=== PATIENT | male | born 1955 | race Caucasian/White ===

== ENCOUNTER 2018-04-15 13:24 | Emergency (ER) | payer MEDICARE, MEDICAID, SELFPAY ==
[2018-04-15 13:37] VITALS: BP 133/79; PULSE 80; RESP 16; TEMP 36.9; O2SAT 97
--- NOTE | 2018-04-15 14:29 | ED.GENADUL_ITS ---
Disposition Clinical Impression: Peripheral edema Disposition: HOME Condition: Stable Instructions: Leg Edema (ED) Additional Instructions: Please return immediately to the emergency department if you develop any new or worsening symptoms or if you become otherwise concerned. It is extremely important to make an appointment to be seen by your primary care doctor within the next 1-2 weeks in follow-up. Referrals: Carlos Nguyen DO [Primary Care Provider] - Medical Decision Making - Lab Data Laboratory Tests 04/15/18 14:47 Sodium 145 Potassium 3.6 Chloride 109 H Carbon Dioxide 28.4 Anion Gap 7.6 BUN 10 Creatinine 1.23 Estimated GFR/1.73 m2 59.43 Glucose 102 H Calcium 8.9 NT-Pro-B Natriuret Pep 154 TSH 2.70 Results reviewed for labs ordered during visit: Yes - Radiology Data Bilateral lower extremity ultrasounds per radiology: no DVT - Medical Decision Making Alex Roberson is a 63-year-old man with history of hyperlipidemia presenting to the emergency department with 3-4 days of bilateral leg swelling without trauma or other known inciting event; no history of swelling in the past. On exam patient is very well-appearing. He has a normal cardiopulmonary exam. He has 2 + pitting edema of the legs bilaterally with mild posterior calf tenderness bilaterally. Bilateral lower extremities are neurovascularly intact. Concern for possible metabolic/leg derangement vs DVTs, though suspect likely venous stasis/dependent edema given lack of other symptoms. Doubt CHF. Exam/history not consistent with sepsis, PE, cellulitis/myositis or other infection. Plan for screening labs, b/l LE US. Labs nondiagnostic, US neg. Lengthy discussion with Pt re: RTED preautions importance of outpatient follow-up with PCP. Patient is amenable to the plan History of Present Illness - General Chief complaint: Orthopedic Stated complaint: CALEX Time Seen by Provider: 04/15/18 14:22 Source: patient, RN notes reviewed Mode of arrival: EMS Limitations: no limitations - History of Present Illness Initial comments: Alex Roberson is a 63 y/o man with h/o HLD presenting to the emergency department with bilateral lower extremity swelling. Patient reports that 3 or 4 days ago he noticed that both legs seem swollen. He reports that swelling has gradually worsened. He has no pain. He does not feel short of breath. He has never had swelling of his legs in the past. He has had not traveled recently. He reports that he has been somewhat less active than usual recently, but has been walking without issue. Has been eating and drinking normally. Feels otherwise in his usual state of health. Sleeps on one pillow at night without issue. - Related Data FLUoxetine [PROzac] 20 mg PO DAILY #30 cap 06/19/17 Ranitidine HCl 150 mg PO BID #60 tab-cap 08/20/17 Etodolac 400 mg PO BID #60 tab-cap 02/11/18 Rosuvastatin [Crestor] 20 mg PO DAILY #90 tab 02/11/18 Amitriptyline [Elavil] 25 mg PO HS #30 tab-cap 03/29/18 Gabapentin 600 mg PO TID 90 Days #270 tab-cap 03/29/18 Allergies Allergy/AdvReac Type Severity Reaction Status Date / Time tetanus and diphtheria AdvReac Intermediate severe Unverified 04/15/18 13:54 toxoids muscle pain x 2 weeks after injection on 09/2012 Review of Systems Constitutional: denies: fever Eyes: denies: eye pain ENT: denies: ear pain, throat pain, dental pain Respiratory: denies: cough, shortness of breath Cardiovascular: edema. denies: chest pain, orthopnea, paroxysmal nocturnal dyspnea Endocrine: denies: increased hunger, increased thirst Gastrointestinal: denies: abdominal pain, vomiting, diarrhea Musculoskeletal: denies: back pain, arthralgia, myalgia Skin: denies: rash Neurological: paresthesias (Chronic and unchanged). denies: headache, weakness , numbness Past Medical History - Past Medical History Medical history: hyperlipidemia - Social History Smoking status: current everyday smoker Alcohol use: none Drug use: none General Exam - General Limitations: no limitations General appearance: alert, in no apparent distress, other (Pleasant, conversing normally, well-appearing and nontoxic) - Head Head exam: Present: atraumatic, normocephalic, normal inspection - Eye Eye exam: Absent: scleral icterus, conjunctival injection Pupils: Absent: irregular, unequal, miosis, mydriatic - ENT ENT exam: Present: mucous membranes moist - Neck Neck exam: Present: normal inspection - Respiratory Respiratory exam: Present: normal lung sounds bilaterally. Absent: respiratory distress - Cardiovascular Cardiovascular Exam: Present: regular rate, normal rhythm, normal heart sounds - Extremities Exam Extremities exam: Present: full ROM, pedal edema (2+ pitting edema bilaterally) , calf tenderness (Mild posterior calf tenderness bilaterally), other (No overlying skin changes). Absent: joint swelling - Neurological Exam Neurological exam: Present: alert, other (Grossly nonfocal, normal tone). Absent: altered - Psychiatric Psychiatric exam: Present: normal affect, normal mood - Skin Skin exam: Present: warm, dry, intact, normal color. Absent: rash Course Vital Signs - 24 hr 04/15/18 13:37 Temperature 36.9 C Pulse 80 Respiratory 16 Rate Blood Pressure 133/79 Pulse Oximetry 97
[2018-04-15 15:16] LABS: Anion Gap 7.6 mmol/L (3-11); BUN 10 mg/dL (7-18); CO2 28.4 mmol/L (21.0-32.0); CREATININE 1.23 mg/dL (0.70-1.30); Calcium 8.9 mg/dL (8.5-10.1); Chloride 109 mmol/L (98-107); Estimated GFR 59.43 (mL/min/1.73m2); Glucose 102 mg/dL (70-100); NT-proBNP 154 pg/mL; Potassium 3.6 mmol/L (3.5-5.1); Sodium 145 mmol/L (136-145)
--- NOTE | 2018-04-15 15:17 | DI.REPORT_ITS ---
SYMPTOMS/DIAGNOSIS: LOWER LEG SWELLING PAST 3-4 DAYS BILATERAL LOWER EXTREMITY ULTRASOUND: The femoral and popliteal veins and visualized calf veins, as well as saphenous vein, are freely compressible. No thrombus is visible. There is no evidence of Silver's cyst. IMPRESSION: Negative bilateral lower extremity ultrasound. No evidence of DVT.
--- NOTE | 2018-04-15 16:24 | PDOC.ERCMPRO ---
Date of Service: 04/15/18 Time of Service: 16:24 Care Management Progress Note CM contacted by ED to coordinate transportation home at time of ED discharge. CM contacted [facility] and arranged transportation. Alex is known to [facility] and will be transported home by service. ED was contacted and updated with estimated arrival time for patient.
[2018-04-15 16:36] VITALS: BP 146/87; PULSE 69; RESP 21; TEMP 37.1; O2SAT 95
== END 2018-04-15 16:40 | disposition home or self-care (01) ==
PROVIDERS: Emergency Provider Student in an Organized Health Care Education/Training Program; PCP Family Medicine
DX: R60.0 Localized edema (principal)
CPT/HCPCS: 93970; 99284 ×2; 36415; 80048; 83880; 84443

== ENCOUNTER 2018-09-29 10:57 | Inpatient (IN) | payer MEDICARE, MEDICAID, SELFPAY ==
[2018-09-29] VITALS (77 sets, daily range): BP systolic 84–128; BP diastolic 45–91; PULSE 75–157; RESP 10–26; TEMP 37.5–38.6; O2SAT 81–96
--- NOTE | 2018-09-29 10:52 | W.ED.GENAD ---
Discharge Plan Disposition Patient Disposition: [facility] INPATIENT Condition: Stable Discharge Details Chief Complaint: GenMedical Clinical Impression: Influenza, Acute dehydration, Elevated troponin Reason For Visit: CITL[facility]I Primary Care Provider: Carlos Nguyen ED Provider: Char Collins Home Meds and New Rx's Prescriptions: Continued amitriptyline 25 mg tablet 25 mg PO HS Qty: 90 RF: 3 etodolac 400 mg tablet 400 mg PO BID Qty: 180 RF: 3 fluoxetine 20 mg capsule 20 mg PO DAILY Qty: 90 RF: 3 ranitidine HCl 150 mg capsule 150 mg PO BID Qty: 180 RF: 3 rosuvastatin [Crestor] 20 MG tablet 20 mg PO DAILY Qty: 90 RF: 4 gabapentin 600 MG tablet 600 mg PO TID 90 Days Qty: 270 RF: 3 Discharge Instructions Instructions: Contusion in Adults (ED) Additional Instructions: Encourage hydration. Encourage gentle stretching and frequent ambulation. Tylenol and/or ibuprofen as needed for discomfort. Flexeril as needed for spasm. Lidoderm patches as prescribed. Please follow-up with primary care if pain is not improving If you develop pain radiating into your extremities, altered sensation, change in bowel or bladder habits, increased pain, abdominal pain, fever/chills or other new/worsening symptoms please seek care urgently once again Forms: Work Release Referrals: Carlos Nguyen DO [Primary Care Provider] - Medical Decision Making Patient is a 63 presenting today with c/c of weakness. His symptoms are rather vague. He denies CP, SOB, GI upset. Has body aches, endorses feeling feverish. cough began this morning. On exam, he appears nontoxic. Appears dehydrated. He is febrile at 38.0, tachycardic at 113. Denies cardiac history. Cardiopulmonary exam without abnormality. Has been seen here for BLE edema previously, has not noted this recently. His diffuse symptoms are most consistent with influenza. However, we will also evaluate her for possible ACS, pneumonia, electrolyte abnormality, thyroid disorder, tic borne illness versus other etiology. Low suspicion for ACS, patient does not have any chest pain or shortness of breath. No history of cardiac issues the patient is aware of. EKG reviewed by Dr. Farley. Patient does have PACs noted but otherwise no acute abnormalities, no ischemic findings. This was compared to previous with no acute changes. Influenza negative. However, patients history sounds very consistent with influenza, will be treatment with Tamiflu. Patient is elevated troponin 0 0.12. Patient given ASA. Question the patient again, no history of cardiac illness, ACS. No recent chest pain. No shortness of breath. Patient is a smoker. Creatinine 1.65. Discussed case with Dr. Farley. Consulted with Dr. Mccullough. is not reviewed EKG, troponin and patient's presenting symptoms and history. He is questioning if this may be secondary to demand. Did advise aspirin, this is been given to the patient. He also advised heparinizing the patient per ACS protocol. He advised planning for stress test tomorrow nor once patient is able to tolerate this from his acute illness. Did recommend admission and trending the troponins. Did not feel that movement to a higher level of care is appropriate or necessary at this time. Have been started by nursing staff. Will consult with hospitalist No beds per hospitalist. Consulted with [facility], they do not have bed availability at this time. Consulted with [facility], spoke with hospitalist who advised 4 hour troponin, if this is not significantly bumped up they will accept in transfer. Repeat troponin downtrending at 0.1. Repeat EKG reviewed by Dr. Farley [facility] no acute changes noted. consulted with Dr. Alaniz as we now have beds availabe, he agrees to admission, will place orders. HPI General Mode of arrival: EMS. Date/Time Provider Initiated Documentation: 09/29/18 11:05. Limitations to Documentation: no limitations. Information obtained by: EMS. HPI Narrative: Patient is 63-year-old male presents today with chief complaint of weakness. Brought in via EMS. He reports he woke up this morning feeling weak, feverish, with cough. Denies any focal weakness. States he did sleep well last night and had a normal day yesterday. No known sick contacts. Denies any GI upset. No sore throat or otalgia. Patient does have a notable stutter but he states that this is typical and unchanged. He denies any headaches visual changes, he does report that he has history of migraines. History of hyperlipidemia, anxiety, GERD and depression. No recent travel. No recent antibiotic usage.States that he fell a few days ago when he slipped on the sidewalk. Is currently endorsing bilateral hip pain. Related Data Home Medications Medication Instructions Recorded Confirmed rosuvastatin [Crestor] 20 mg PO DAILY #90 tab 02/11/18 09/29/18 gabapentin 600 mg PO TID 90 Days #270 tab-cap 03/29/18 09/29/18 amitriptyline 25 mg tablet 25 mg PO HS #90 tab-cap 08/20/18 09/29/18 etodolac 400 mg tablet 400 mg PO BID #180 tab-cap 08/20/18 09/29/18 fluoxetine 20 mg capsule 20 mg PO DAILY #90 cap 08/20/18 09/29/18 ranitidine 150 mg capsule 150 mg PO BID #180 tab-cap 08/20/18 09/29/18 Previous Rx's Medication Instructions Recorded rosuvastatin [Crestor] 20 mg PO DAILY #90 tab 02/11/18 gabapentin 600 mg PO TID 90 Days #270 tab-cap 03/29/18 amitriptyline 25 mg tablet 25 mg PO HS #90 tab-cap 08/20/18 etodolac 400 mg tablet 400 mg PO BID #180 tab-cap 08/20/18 fluoxetine 20 mg capsule 20 mg PO DAILY #90 cap 08/20/18 ranitidine 150 mg capsule 150 mg PO BID #180 tab-cap 08/20/18 Allergies Allergy/AdvReac Type Severity Reaction Status Date / Time tetanus and diphtheria AdvReac Intermediate severe Unverified 08/20/18 10:18 toxoids muscle pain x 2 weeks after injection on 09/2012 Review of Systems Constitutional Reports as per HPI, Reports chills, Reports fatigue, Reports fever(s), Denies headache(s) and Denies poor appetite Eyes Reports as per HPI, Denies change in vision, Denies eye discharge and Denies irritation ENT Reports as per HPI and Denies headache(s) Cardiovascular Reports as per HPI, Denies chest pain, Denies lightheadedness, Denies dyspnea and Denies dyspnea on exertion Respiratory Reports as per HPI, Reports cough (nonproductive, began this morning), Denies hemoptysis, Denies pain on inspiration, Denies pain with cough, Denies dyspnea, Denies dyspnea on exertion, Denies stridor and Denies wheezing Gastrointestinal Reports as per HPI, Denies abdominal pain, Denies change in bowel habits, Denies nausea and Denies vomiting Genitourinary Reports system reviewed and no additional complaints, except as docu (denies change in urinary habits) Integumentary/Breasts Reports as per HPI and Denies rash Neurologic Denies headache(s) Endocrine Reports fatigue Allergic/Immunologic Denies wheezing PFSH Family History Mother Diabetes Essential hypertension Stroke Father No problems noted. Sister No problems noted. Sister No problems noted. Brother No problems noted. Brother No problems noted. Brother No problems noted. Brother Essential hypertension Brother No problems noted. Social History adopted: No foster care: No housing: apartment lives independently: Yes number of children: 1 current occupational status: disabled Smoking/Tobacco Use Status: Current every day alcohol intake: former substance use type: does not use Exam Const General: cooperative, healthy appearing, comfortable, no acute distress, well developed and well groomed Nutritional Appearance: well nourished and overweight Orientation: alert and awake HENMT Head: normal to inspection, normocephalic and atraumatic Ears: hearing grossly normal bilaterally, external ears normal and TM's normal bilaterally General nose exam: external nose normal and nares normal Face and sinus: normal facial exam, sinuses nontender and face symmetric Mouth: oral mucosae normal, lip normal, tongue normal, oropharynx normal and moist mucous membranes Teeth and gingiva: dentition normal Throat: posterior oropharynx normal, tonsils normal and uvula midline Eyes General: appearance normal, both eyes and all related structures Neck Neck: normal visual inspection, full ROM, no lymphadenopathy and no meningeal signs Resp Effort & Inspection: normal respiratory effort, able to speak in complete sentences and no respiratory distress Auscultation: clear to auscultation bilaterally, no rales, no rhonchi and no wheezes Cardio Rate: regular rate Rhythm: regular rhythm Heart Sounds: S1 normal and S2 normal GI Inspection: normal to inspection and obesity Palpation: soft, no hepatosplenomegaly, not firm, no guarding, not rigid and nontender Percussion: normal to percussion Auscultation: normal bowel sounds Skin General skin exam: no rashes or lesions noted Neuro General: alert and awake Cognition: normal cognition Speech: speech normal Gait: normal gait Extrem General: normal to inspection, no pedal edema and no calf tenderness Psych Appearance: grossly normal and well kempt Mental Status: mental status grossly normal Speech and Movement: speech and movement normal
--- NOTE | 2018-09-29 11:05 | DI.RAD_ITS ---
SYMPTOM/DIAGNOSIS: COUGH, FLU AP AND LATERAL CHEST: The heart size is within normal limits. There is a question of mild scarring. No superimposed infiltrate, effusion or pulmonary edema is seen. IMPRESSION: No acute abnormality.
--- NOTE | 2018-09-29 11:09 | ED.GENADUL_ITS ---
Discharge Plan Disposition Patient Disposition: [facility] INPATIENT Condition: Stable Discharge Details Chief Complaint: GenMedical Clinical Impression: Influenza, Acute dehydration, Elevated troponin Reason For Visit: CITLALLI Primary Care Provider: Carlos Nguyen ED Provider: Char Collins Home Meds and New Rx's Prescriptions: Continued amitriptyline 25 mg tablet 25 mg PO HS Qty: 90 RF: 3 etodolac 400 mg tablet 400 mg PO BID Qty: 180 RF: 3 fluoxetine 20 mg capsule 20 mg PO DAILY Qty: 90 RF: 3 ranitidine HCl 150 mg capsule 150 mg PO BID Qty: 180 RF: 3 rosuvastatin [Crestor] 20 MG tablet 20 mg PO DAILY Qty: 90 RF: 4 gabapentin 600 MG tablet 600 mg PO TID 90 Days Qty: 270 RF: 3 Discharge Instructions Instructions: Contusion in Adults (ED) Additional Instructions: Encourage hydration. Encourage gentle stretching and frequent ambulation. Tylenol and/or ibuprofen as needed for discomfort. Flexeril as needed for spasm. Lidoderm patches as prescribed. Please follow-up with primary care if pain is not improving If you develop pain radiating into your extremities, altered sensation, change in bowel or bladder habits, increased pain, abdominal pain, fever/chills or other new/worsening symptoms please seek care urgently once again Forms: Work Release Referrals: Carlos Nguyen DO [Primary Care Provider] - Medical Decision Making Patient is a 63 presenting today with c/c of weakness. His symptoms are rather vague. He denies CP, SOB, GI upset. Has body aches, endorses feeling feverish. cough began this morning. On exam, he appears nontoxic. Appears dehydrated. He is febrile at 38.0, tachycardic at 113. Denies cardiac history. Cardiopulmonary exam without abnormality. Has been seen here for BLE edema previously, has not noted this recently. His diffuse symptoms are most consistent with influenza. However, we will also evaluate her for possible ACS, pneumonia, electrolyte abnormality, thyroid disorder, tic borne illness versus other etiology. Low suspicion for ACS, patient does not have any chest pain or shortness of breath. No history of cardiac issues the patient is aware of. EKG reviewed by Dr. Farley. Patient does have PACs noted but otherwise no acute abnormalities, no ischemic findings. This was compared to previous with no acute changes. Influenza negative. However, patients history sounds very consistent with influenza, will be treatment with Tamiflu. Patient is elevated troponin 0 0.12. Patient given ASA. Question the patient again, no history of cardiac illness, ACS. No recent chest pain. No shortness of breath. Patient is a smoker. Creatinine 1.65. Discussed case with Dr. Farley. Consulted with Dr. Mccullough. is not reviewed EKG, troponin and patient's presenting symptoms and history. He is questioning if this may be secondary to demand. Did advise aspirin, this is been given to the patient. He also advised heparinizing the patient per ACS protocol. He advised planning for stress test tomorrow nor once patient is able to tolerate this from his acute illness. Did recommend admission and trending the troponins. Did not feel that movement to a higher level of care is appropriate or necessary at this time. Have been started by nursing staff. Will consult with hospitalist No beds per hospitalist. Consulted with [facility] [place], they do not have bed availability at this time. Consulted with [facility], spoke with hospitalist who advised 4 hour troponin, if this is not significantly bumped up they will accept in transfer. Repeat troponin downtrending at 0.1. Repeat EKG reviewed by Dr. Farley [facility] no acute changes noted. consulted with Dr. Alaniz as we now have beds availabe, he agrees to admission, will place orders. HPI General Mode of arrival: EMS . Date/Time Provider Initiated Documentation: 09/29/18 11:05 . Limitations to Documentation: no limitations . Information obtained by: EMS . HPI Narrative: Patient is 63-year-old male presents today with chief complaint of weakness. Brought in via EMS. He reports he woke up this morning feeling weak, feverish, with cough. Denies any focal weakness. States he did sleep well last night and had a normal day yesterday. No known sick contacts. Denies any GI upset. No sore throat or otalgia. Patient does have a notable stutter but he states that this is typical and unchanged. He denies any headaches visual changes, he does report that he has history of migraines. History of hyperlipidemia, anxiety, GERD and depression. No recent travel. No recent antibiotic usage.States that he fell a few days ago when he slipped on the sidewalk. Is currently endorsing bilateral hip pain. Related Data Home Medications Medication Instructions Recorded Confirmed rosuvastatin [Crestor] 20 mg PO DAILY #90 tab 02/11/18 09/29/18 gabapentin 600 mg PO TID 90 Days #270 tab-cap 03/29/18 09/29/18 amitriptyline 25 mg tablet 25 mg PO HS #90 tab-cap 08/20/18 09/29/18 etodolac 400 mg tablet 400 mg PO BID #180 tab-cap 08/20/18 09/29/18 fluoxetine 20 mg capsule 20 mg PO DAILY #90 cap 08/20/18 09/29/18 ranitidine 150 mg capsule 150 mg PO BID #180 tab-cap 08/20/18 09/29/18 Previous Rx's Medication Instructions Recorded rosuvastatin [Crestor] 20 mg PO DAILY #90 tab 02/11/18 gabapentin 600 mg PO TID 90 Days #270 tab-cap 03/29/18 amitriptyline 25 mg tablet 25 mg PO HS #90 tab-cap 08/20/18 etodolac 400 mg tablet 400 mg PO BID #180 tab-cap 08/20/18 fluoxetine 20 mg capsule 20 mg PO DAILY #90 cap 08/20/18 ranitidine 150 mg capsule 150 mg PO BID #180 tab-cap 08/20/18 Allergies Allergy/AdvReac Type Severity Reaction Status Date / Time tetanus and diphtheria AdvReac Intermediate severe Unverified 08/20/18 10:18 toxoids muscle pain x 2 weeks after injection on 09/2012 Review of Systems Constitutional Reports as per HPI, Reports chills, Reports fatigue, Reports fever(s), Denies headache(s) and Denies poor appetite Eyes Reports as per HPI, Denies change in vision, Denies eye discharge and Denies irritation ENT Reports as per HPI and Denies headache(s) Cardiovascular Reports as per HPI, Denies chest pain, Denies lightheadedness, Denies dyspnea and Denies dyspnea on exertion Respiratory Reports as per HPI, Reports cough (nonproductive, began this morning), Denies hemoptysis, Denies pain on inspiration, Denies pain with cough, Denies dyspnea, Denies dyspnea on exertion, Denies stridor and Denies wheezing Gastrointestinal Reports as per HPI, Denies abdominal pain, Denies change in bowel habits, Denies nausea and Denies vomiting Genitourinary Reports system reviewed and no additional complaints, except as docu (denies change in urinary habits) Integumentary/Breasts Reports as per HPI and Denies rash Neurologic Denies headache(s) Endocrine Reports fatigue Allergic/Immunologic Denies wheezing PFSH Family History Mother Diabetes Essential hypertension Stroke Father No problems noted. Sister No problems noted. Sister No problems noted. Brother No problems noted. Brother No problems noted. Brother No problems noted. Brother Essential hypertension Brother No problems noted. Social History adopted: No foster care: No housing: apartment lives independently: Yes number of children: 1 current occupational status: disabled Smoking/Tobacco Use Status: Current every day alcohol intake: former substance use type: does not use Exam Const General: cooperative, healthy appearing, comfortable, no acute distress, well developed and well groomed Nutritional Appearance: well nourished and overweight Orientation: alert and awake HENMT Head: normal to inspection, normocephalic and atraumatic Ears: hearing grossly normal bilaterally, external ears normal and TM's normal bilaterally General nose exam: external nose normal and nares normal Face and sinus: normal facial exam, sinuses nontender and face symmetric Mouth: oral mucosae normal, lip normal, tongue normal, oropharynx normal and moist mucous membranes Teeth and gingiva: dentition normal Throat: posterior oropharynx normal, tonsils normal and uvula midline Eyes General: appearance normal, both eyes and all related structures Neck Neck: normal visual inspection, full ROM, no lymphadenopathy and no meningeal signs Resp Effort & Inspection: normal respiratory effort, able to speak in complete sentences and no respiratory distress Auscultation: clear to auscultation bilaterally, no rales, no rhonchi and no wheezes Cardio Rate: regular rate Rhythm: regular rhythm Heart Sounds: S1 normal and S2 normal GI Inspection: normal to inspection and obesity Palpation: soft, no hepatosplenomegaly, not firm, no guarding, not rigid and nontender Percussion: normal to percussion Auscultation: normal bowel sounds Skin General skin exam: no rashes or lesions noted Neuro General: alert and awake Cognition: normal cognition Speech: speech normal Gait: normal gait Extrem General: normal to inspection, no pedal edema and no calf tenderness Psych Appearance: grossly normal and well kempt Mental Status: mental status grossly normal Speech and Movement: speech and movement normal
[2018-09-29] MEDS: Normal Saline 1,000 ML 1000 ML IV (11:25)
[2018-09-29 11:33] LABS: Abs Immature Grans 0.03 k/cumm (0.0-0.09); Absolute Basophil Count 0.02 k/cumm (0.0-0.2); Absolute Eosinophil Count 0.03 k/cumm (0.0-0.7); Absolute Lymphocyte Count 0.42 k/cumm (1.2-3.4); Absolute Monocyte Count 0.49 k/cumm (0.11-0.7); Absolute Neutrophil Count 8.34 k/cumm (1.2-6.7); Basophils % 0.2; Eosinophils % 0.3; HCT 42.1 % (40.0-50.0); HGB 14.4 g/dL (13.5-17.5); Immature Grans % 0.3; Lymphocytes % 4.5; Mean Corp. HGB Concentration 34.2 g/dL (32.0-36.0); Mean Corpuscular Hemoglobin 31.5 pg (27.0-33.0); Mean Corpuscular Volume 92.1 fL (80-95); Mean Platelet Volume 11.3 fL (8.0-11.0); Monocytes % 5.3; Neutrophils % 89.4; Platelet Count 125 x1000/uL (130-400); RBC 4.57 m/cumm (4.50-6.00); RBC Distribution Width 13.7 % (11.8-14.1); White Blood Cell Count 9.33 k/cumm (4.4-10.8)
[2018-09-29] MEDS: Acetaminophen 500 MG TAB 1000 MG PO (11:33)
[2018-09-29 11:46] LABS: INR 1.1 (0.9-1.1); PTT Activated 25.5 sec (21.0-31.4)
[2018-09-29 11:54] LABS: ALT 42 U/L (12-78); AST 25 U/L (15-37); Albumin 3.6 g/dL (3.4-5.0); Alkaline Phosphatase 84 U/L (46-116); Anion Gap 8.1 mmol/L (3-11); BUN 18 mg/dL (7-18); CO2 24.9 mmol/L (21.0-32.0); CREATININE 1.65 mg/dL (0.70-1.30); Calcium 9.4 mg/dL (8.5-10.1); Chloride 104 mmol/L (98-107); Estimated GFR 42.34 (mL/min/1.73m2); Glucose 71 mg/dL (70-100); Magnesium 1.8 mg/dL (1.8-2.4); Sodium 137 mmol/L (136-145); TSH (W/Ref FT4) 1.51 uIU/mL (0.358-3.74); Total Protein 6.7 g/dL (6.4-8.2)
[2018-09-29 11:56] LABS: Troponin I 0.12 ng/mL (0.00-0.06)
[2018-09-29] MEDS: Aspirin 81 MG CHEW 324 MG CH ×2 (12:10→12:12)
[2018-09-29] MEDS: Oseltamivir 75 MG CAP PO ×3 (12:10→19:53)
[2018-09-29] MEDS: Normal Saline 1,000 ML 250 ML IV (12:29)
--- NOTE | 2018-09-29 12:34 | DI.VRAD_ITS ---
EXAM: XR Chest, 2 Views EXAM DATE/TIME: 09/29/2018 11:07 AM CLINICAL HISTORY: 63 years old, male; Signs and symptoms; Cough and fever TECHNIQUE: XR of the chest, 2 views. COMPARISON: CT CHEST - LUNG CANCER SCREENING 08/16/2015 12:57 PM FINDINGS: Lungs: Hyperexpanded lung recinos consistent with COPD Pleural space: Unremarkable. No pleural effusion. No pneumothorax. Heart/Mediastinum: Cardiomegaly Bones/joints: Unremarkable. IMPRESSION: Hyperexpanded lung recinos consistent with COPD Dictated and Authenticated by: Marek Cotter MD. Ordering:MELISSA Pardo MD
[2018-09-29 15:22] LABS: Bilirubin Large (Negative); Blood Negative (Negative); Clarity Clear; Glucose Negative (Negative); Ketones 15 mg/dL (Negative); Leukocyte Esterase Trace (Negative); Nitrite Negative (Negative); Specific Gravity 1.015 (1.005-1.025); Urobilinogen 0.2 EU/dL (Up TO 0.2); pH 5.5 (5-8)
[2018-09-29 15:30] LABS: Bacteria Rare HPF (Negative); C & S Indicated? No/Sq. Contamination; Casts Negative LPF (Negative); Crystals Negative HPF (Negative); Epithelial Cells Many HPF (Negative); Mucus Negative (Negative)
[2018-09-29] MEDS: Metoprolol 12.5 MG TAB PO (17:55)
[2018-09-29] MEDS: SODIUM CHLORIDE 0.45% 1,000 ML 125 ML IV (18:11)
[2018-09-29] MEDS: Acetaminophen 325 MG TAB PO ×2 (18:17→21:48)
[2018-09-29 18:53] LABS: PTT Activated 52.1 sec (21.0-31.4)
--- NOTE | 2018-09-29 19:50 | W.PM.HP.N ---
Date of service: 09/29/18 Time of Service: 19:50 Assessment and Plan (1) Upper respiratory infection: Current visit: Yes Status: Acute Evidence of a febrile URI accompanied by subjective body aches and myalgias. Although the patient's rapid flu is negative, strongly suspect influenza as potential etiology. Check flu by PCR, and continue Oseltamivir that was initiated in the ED. Despite acute kidney injury patient's creatinine clearance is calculated at above 60?will continue at full dosing for Tamiflu. Continue supportive care and IV fluids as well. (2) EFRAÍN (acute kidney injury): Current visit: Yes Status: Acute Potentially prerenal in setting of acute illness and fevers. Continue IV fluids and monitor renal function. (3) Elevated troponin: Current visit: Yes Status: Acute Minimal and equivocal elevation in troponin that quickly down trended. This is in the setting of acute illness and poor clearance due to EFRAÍN. EKG reviewed, and overall appears to be nonischemic although of poor quality. Patient was initiated in a heparin drip in accordance with recommendations from cardiology - this will be continued for now. Initiate daily aspirin and low-dose beta-rain therapy with hold parameters given relative hypotension. Continue high potency statin. Hold off on Plavix load for now, and trend cardiac biomarkers. Will check an echocardiogram in the morning as well. Suspect that this minimal troponin spill is likely due to demand ischemia, but given lengthy history of tobacco use the patient will still benefit from testing in the future. Stress test may need to be performed on an outpatient basis as patient is acutely ill. Continue to monitor on telemetry. (4) Tobacco use disorder, moderate, dependence: Current visit: No Status: Acute Approximate 50+-pack-year history of smoking noted. (5) Hyperlipidemia: Current visit: No Status: Acute Continue rosuvastatin. (6) Generalized anxiety disorder: Current visit: No Status: Acute Continue home regimen?patient is on SSRI therapy. (7) Gastroesophageal reflux disease: Current visit: No Status: Acute Currently on ranitidine. (8) DVT prophylaxis: Current visit: Yes Status: Acute On therapeutic anticoagulation with a heparin drip. History of Present Illness Chief Complaint: Fever, Myalgias Narrative: 63-year-old man with past medical history significant for daily tobacco abuse, presented to [facility] Emergency Department today with complaints of feeling unwell. Mr. Roberson has a past medical history significant for generalized anxiety disorder, depression, and insomnia. He also has noted spinal stenosis in the C-spine, and suffers from GERD. Review of his prior imaging shows evidence of a pulmonary nodule. He is also a daily long-term tobacco user, with an approximate 90-[id number] history of smoking. The patient presented to the emergency department today with complaints of subjective fevers, cough, and body aches. He was noted to be mildly hypotensive, and initially tachycardic. He also had a documented fever with a temperature of 38 ?C. Entirety of the rest of his workup was negative, including a contaminated appearing urinalysis, normal EKG, and a chest x-ray without acute abnormalities. However the patient was noted to have evidence of mild acute kidney injury with a creatinine of 1.6, and a minimal elevation in his troponin that was already downtrending prior to admission. Given the findings patient was admitted for further evaluation and treatment. Review of Systems Review of Systems All systems reviewed & are unremarkable except as noted in HPI and below PFSH Family History Mother Diabetes Essential hypertension Stroke Father No problems noted. Sister No problems noted. Sister No problems noted. Brother No problems noted. Brother No problems noted. Brother No problems noted. Brother Essential hypertension Brother No problems noted. Social History adopted: No foster care: No housing: apartment lives independently: Yes number of children: 1 current occupational status: disabled Smoking/Tobacco Use Status: Current every day alcohol intake: former substance use type: does not use additional social history: Patient is , with one daughter. He is a grandfather of 4. He has a 50 approximate pack-year history of smoking, but denies alcohol use. Meds Home Medications Medication Instructions Recorded Confirmed Type rosuvastatin [Crestor] 20 mg PO DAILY #90 tab 02/11/18 09/29/18 Rx gabapentin 600 mg PO TID 90 Days #270 tab-cap 03/29/18 09/29/18 Rx amitriptyline 25 mg tablet 25 mg PO HS #90 tab-cap 08/20/18 09/29/18 Rx etodolac 400 mg tablet 400 mg PO BID #180 tab-cap 08/20/18 09/29/18 Rx fluoxetine 20 mg capsule 20 mg PO DAILY #90 cap 08/20/18 09/29/18 Rx ranitidine 150 mg capsule 150 mg PO BID #180 tab-cap 08/20/18 09/29/18 Rx Allergies Allergy/AdvReac Type Severity Reaction Status Date / Time tetanus and diphtheria AdvReac Intermediate severe Unverified 08/20/18 10:18 toxoids muscle pain x 2 weeks after injection on 09/2012 Exam Narrative Exam Narrative: General: Patient appears comfortable, AAOX3, NAD Neck: Supple CV: Regular, nontachycardic, S1S2, No rubs, murmurs, or gallops. Pulmonary: Clear to auscultation bilaterally, no crackles, wheezing, or rhonchi Abdomen: + Bowel Sounds, soft, nontender, nondistended Vascular: No lower extremity edema Neurologic: CN II-XII grossly intact. No focal deficits. Psych: Normal mood and affect. Results Labs : 09/29/18 11:20 09/29/18 11:20 Laboratory Results - last 24 hr 09/29/18 09/29/18 09/29/18 11:05 11:20 11:20 WBC RBC Hgb Hct MCV MCH MCHC RDW Plt Count MPV Immature Gran % Neutrophils % Lymphocytes % Monocytes % Eosinophils % Basophils % Absolute Neutrophils Absolute Lymphocytes Absolute Monocytes Absolute Eosinophils Absolute Basophils PT 11.0 INR 1.1 APTT 25.5 Sodium 137 Potassium 4.0 Chloride 104 Carbon Dioxide 24.9 Anion Gap 8.1 BUN 18 Creatinine 1.65 H Estimated GFR/1.73 m2 42.34 Glucose 71 Calcium 9.4 Magnesium Cancelled 1.8 Total Bilirubin 1.0 AST 25 ALT 42 Alkaline Phosphatase 84 Troponin I 0.12 H Total Protein 6.7 Albumin 3.6 TSH Cancelled 1.51 Urine Color Urine Clarity Urine pH Ur Specific [place] Urine Protein Urine Ketones Urine Blood Urine Nitrite Urine Bilirubin Urine Urobilinogen Ur Leukocyte Esterase Urine RBC Urine WBC Ur Epithelial Cells Urine Crystals Urine Bacteria Urine Casts Urine Mucus Ur Culture Indicated? Urine Glucose 09/29/18 09/29/18 09/29/18 11:20 15:05 15:05 WBC 9.33 RBC 4.57 Hgb 14.4 Hct 42.1 MCV 92.1 MCH 31.5 MCHC 34.2 RDW 13.7 Plt Count 125 L MPV 11.3 H Immature Gran % 0.3 Neutrophils % 89.4 Lymphocytes % 4.5 Monocytes % 5.3 Eosinophils % 0.3 Basophils % 0.2 Absolute Neutrophils 8.34 H Absolute Lymphocytes 0.42 L Absolute Monocytes 0.49 Absolute Eosinophils 0.03 Absolute Basophils 0.02 PT INR APTT Sodium Potassium Chloride Carbon Dioxide Anion Gap BUN Creatinine Estimated GFR/1.73 m2 Glucose Calcium Magnesium Total Bilirubin AST ALT Alkaline Phosphatase Troponin I 0.10 H Total Protein Albumin TSH Urine Color Yellow Urine Clarity Clear Urine pH 5.5 Ur Specific [place] 1.015 Urine Protein Trace H Urine Ketones 15 H Urine Blood Negative Urine Nitrite Negative Urine Bilirubin Large H Urine Urobilinogen 0.2 Ur Leukocyte Esterase Trace H Urine RBC 3-5 H Urine WBC 5-10 Ur Epithelial Cells Many Urine Crystals Negative Urine Bacteria Rare Urine Casts Negative Urine Mucus Negative Ur Culture Indicated? No/sq. contamination Urine Glucose Negative 09/29/18 09/29/18 18:30 19:19 WBC RBC Hgb Hct MCV MCH MCHC RDW Plt Count MPV Immature Gran % Neutrophils % Lymphocytes % Monocytes % Eosinophils % Basophils % Absolute Neutrophils Absolute Lymphocytes Absolute Monocytes Absolute Eosinophils Absolute Basophils PT INR APTT 52.1 H D Cancelled Sodium Potassium Chloride Carbon Dioxide Anion Gap BUN Creatinine Estimated GFR/1.73 m2 Glucose Calcium Magnesium Total Bilirubin AST ALT Alkaline Phosphatase Troponin I Total Protein Albumin TSH Urine Color Urine Clarity Urine pH Ur Specific [place] Urine Protein Urine Ketones Urine Blood Urine Nitrite Urine Bilirubin Urine Urobilinogen Ur Leukocyte Esterase Urine RBC Urine WBC Ur Epithelial Cells Urine Crystals Urine Bacteria Urine Casts Urine Mucus Ur Culture Indicated? Urine Glucose Last Vital Signs Temp 37.5 C 09/29/18 17:47 Pulse 81 09/29/18 19:13 Resp 18 09/29/18 17:47 BP 96/59 L 09/29/18 17:47 Pulse Ox 94 L 09/29/18 17:47
[2018-09-29] MEDS: Normal Saline Flush 10 ML SYR IVP (19:52)
[2018-09-29] MEDS: Gabapentin 600 MG TAB PO (19:53)
--- NOTE | 2018-09-29 20:32 | NUR.NOTE ---
Nursing Note:per hospitalist, ok to use remainder of current iv fluid before changing to new order.
[2018-09-29 20:39] LABS: Troponin I 0.06 ng/mL (0.00-0.06)
[2018-09-29] MEDS: Rosuvastatin 10 MG TAB 20 MG PO (21:37)
[2018-09-29] MEDS: guaiFENesin/D-METHORPHAN HB 5 ML CUP 10 ML PO (21:37)
[2018-09-29] MEDS: Amitriptyline 25 MG TAB PO (21:42)
[2018-09-29] MEDS: Normal Saline 1,000 ML 150 ML IV (21:43)
[2018-09-30] VITALS (19 sets, daily range): BP systolic 86–130; BP diastolic 58–78; PULSE 63–83; RESP 2–20; TEMP 37.7–38.8; O2SAT 91–94
[2018-09-30] MEDS: Acetaminophen 325 MG TAB PO ×4 (03:46→19:15)
[2018-09-30] MEDS: Metoprolol 12.5 MG TAB PO ×2 (03:46→15:45)
[2018-09-30] MEDS: guaiFENesin/D-METHORPHAN HB 5 ML CUP 10 ML PO (06:20)
--- NOTE | 2018-09-30 06:50 | NUR.NOTE ---
Nursing Note: APTT lab still pending, no result. Will report to day RN that pt had a 0600 draw to titrate heparin gtt.
[2018-09-30 07:45] LABS: Abs Immature Grans 0.02 k/cumm (0.0-0.09); Absolute Basophil Count 0.02 k/cumm (0.0-0.2); Absolute Eosinophil Count 0.07 k/cumm (0.0-0.7); Absolute Monocyte Count 0.55 k/cumm (0.11-0.7); Absolute Neutrophil Count 4.43 k/cumm (1.2-6.7); Basophils % 0.4; Eosinophils % 1.2; Immature Grans % 0.4; Lymphocytes % 10.5; Mean Corp. HGB Concentration 33.3 g/dL (32.0-36.0); Mean Corpuscular Hemoglobin 31.1 pg (27.0-33.0); Mean Corpuscular Volume 93.3 fL (80-95); Mean Platelet Volume 11.5 fL (8.0-11.0); Monocytes % 9.7; Neutrophils % 77.8; Platelet Count 103 x1000/uL (130-400); RBC 4.18 m/cumm (4.50-6.00); White Blood Cell Count 5.69 k/cumm (4.4-10.8)
[2018-09-30] MEDS: Gabapentin 600 MG TAB PO ×3 (07:58→19:15)
[2018-09-30] MEDS: Benzonatate 200 MG CAP PO ×3 (07:58→19:15)
[2018-09-30] MEDS: FLUoxetine 20 MG CAP PO (07:58)
[2018-09-30] MEDS: Oseltamivir 75 MG CAP PO ×2 (07:58→19:15)
[2018-09-30] MEDS: Aspirin 81 MG CHEW PO (07:59)
[2018-09-30 08:12] LABS: Anion Gap 9.5 mmol/L (3-11); BUN 16 mg/dL (7-18); CO2 22.5 mmol/L (21.0-32.0); CREATININE 1.33 mg/dL (0.70-1.30); Calcium 8.2 mg/dL (8.5-10.1); Chloride 108 mmol/L (98-107); Estimated GFR 54.31 (mL/min/1.73m2); Glucose 91 mg/dL (70-100); Magnesium 1.9 mg/dL (1.8-2.4); Potassium 4.3 mmol/L (3.5-5.1); Sodium 140 mmol/L (136-145); Troponin I 0.04 ng/mL (0.00-0.06)
[2018-09-30 08:34] LABS: PTT Activated 58.8 sec (21.0-31.4)
[2018-09-30] MEDS: Normal Saline 1,000 ML 150 ML IV ×3 (09:03→23:22)
--- NOTE | 2018-09-30 11:14 | PHARADMIT ---
Addendum entered by Krzysztof Givens III 10/02/18 12:36: Pharmacy Note Subjective MD notes patient has Pneumonia, Afebrile presently, Tele-dc'd Objective VS-OK SCr-1.28 Lytes,H&H,WBC,Plts-OK BM yesterday. Assessment Vancomycin DC'd, Levaquin continues, Heparin restarted (SC) Plan MD expects discharge tomorrow. Original Note: Addendum entered by Lisa Peres 10/01/18 17:23: Pharmacy Note Subjective Objective bp-142/79 Tmax-38.4 plt-88 Assessment heparin put on hold vanco and levofloxacin started PO mag replacement given oseltamivir discontinued; influenza PCR was negative Plan continue to watch platelets, order vanco trough when needed Original Note: Admission Pharmacy Clinical Review UTI, elevated troponin Code Status Full Code Current Weight 104.6 kg Renally Cleared and Narrow Therapeutic Index Meds Crcl ~66.7 mL/min using adjusted bodyweight etodolac: use with caution Crcl 37-88 mL/min QTc Value / Action Taken QTc 415 BP Control, Fever BP-106/59 Tmax 38.5 today Electrolytes reviewed Cl 108 DVT Prophylaxis none, heparin drip was discontinued today Opiate Usage / Scheduled Bowel Regimen Ordered no/prn Plt/SCr for Heparin / Enoxaparin plt 103 SCr 1.33 INR for Warfarin n/a H/H stable, WBC/Bands h/h 13.0/39.0 wbc 5.69 Antibiotic appropriateness none Cultures and Sensitivities -blood cultures pending -sputum culture pending; gram stain moderate gram+ cocci and rare gram + toño -rapid influenza negative Surgical ABX d/c within 24 hr n/a DM control / Insulin Dosing BG 91 none Heart Failure (Check EF%) (CONRAD's, B-Block, Diuretics) metoprolol IV to PO Switch n/a Home Meds Reviewed -fluoxetine may enhance the adverse/toxic effect of amitriptyline (serotonin syndrome, QT prolongation) -fluoxetine may enhance the antiplatelet effect of etodolac Home Meds Not Ordered all ordered Comments watch platelets despite negative rapid flu, MD still strongly suspects influenza as potential etiology per progress note, pt is on oseltamivir, watch for PCR results
[2018-09-30] MEDS: Albuterol/Ipratropium 3 ML UPD VIAL UPD (11:26)
--- NOTE | 2018-09-30 11:53 | DI.COMBO_ITS ---
SYMPTOM/DIAGNOSIS: FEVER, COUGH, URI PA AND LATERAL CHEST: Comparison is made with the previous day's exam. The heart size is within normal limits. The PA view is mildly rotated. Leads overlie the chest. No infiltrate, effusion or pulmonary edema is seen. No pulmonary nodules are identified. There are mild fibrotic changes. IMPRESSION: No acute abnormality.
--- NOTE | 2018-09-30 12:45 | MERGE_ITS ---
*[facility]* *[facility]* [address] [place] [address] Date of study: 09/30/2018 Transthoracic Echocardiography M-mode, complete 2D, complete spectral Doppler, and color Doppler *STUDY CONCLUSIONS* Summary: 1. Left ventricle: The cavity size was normal. Systolic function was normal. The estimated ejection fraction was 60-65%. Diastolic parameters were normal. There was no evidence of elevated ventricular filling pressure by Doppler parameters. 2. Aortic valve: There was mild regurgitation. 3. Mitral valve: There was mild regurgitation. 4. Right ventricle: The cavity size was normal. Systolic function was mildly reduced. 5. Atrial septum: No defect or patent foramen ovale was identified. 6. Pulmonary arteries: Pulmonary systolic pressure was in the range of 30mm Hg to 40mm Hg. 7. Inferior vena cava: The vessel was patent and normal in size. The respirophasic diameter changes were in the normal range (greater than or equal to 50%), consistent with normal central venous pressure. *PATIENT PRESENTATION* Height: 172.7cm ((68in) ) S/D Pressure: 115 / 72 Weight: 104.3kg ((229.5lb) ) BSA: 2.28m^2 Test start time: 12:45 PM. Test stop time: 01:45 PM. PERFORMING Unknown ORDERING Andrez Alaniz REFERRING Anderz Alaniz PERFORMING [facility] RN IMAGING RT Beny Cole)(CT), [facility] CONSULTING Carlos Nguyen *PROCEDURE DATA* Procedure information: The patient was identified by two identifiers. This study was interpreted by [facility]. Pertinent images and digital data are archived for permanent storage and are available for subsequent review. No prior study was available for comparison. Study status: Routine. Transthoracic echocardiography. M-mode, complete 2D, complete spectral Doppler, and color Doppler. A Transthoracic Echocardiogram was performed. Scanning was performed from the parasternal, apical, subcostal, and suprasternal notch acoustic windows. Images were obtained using an [id number] cardiac ultrasound machine. Image quality was adequate. Study completion: The patient tolerated the procedure well. History: PMH: Elevated troponin. *CARDIAC ANATOMY* Left ventricle: The cavity size was normal. Systolic function was normal. The estimated ejection fraction was 60-65%. The tissue Doppler parameters were normal. Diastolic parameters were normal. There was no evidence of elevated ventricular filling pressure by Doppler parameters. Aortic valve: Trileaflet. Doppler: There was no stenosis. There was mild regurgitation. VTI ratio of LVOT to aortic valve: 0.84. Valve area (VTI): 3cm^2. Indexed valve area (VTI): 1.3cm^2/m^2. Peak velocity ratio of LVOT to aortic valve: 0.83. Valve area (Vmax): 2.9cm^2. Indexed valve area (Vmax): 1.3cm^2/m^2. Mean velocity ratio of LVOT to aortic valve: 0.83. Valve area (Vmean): 2.9cm^2. Indexed valve area (Vmean): 1.3cm^2/m^2. Mean gradient (S): 3.9mm Hg. Peak gradient (S): 6mm Hg. Aorta: Aortic root: The aortic root was normal in size. Ascending aorta: The ascending aorta was mildly dilated. Mitral valve: Doppler: There was no evidence for stenosis. There was mild regurgitation. Valve area by pressure half-time: 4.5cm^2. Indexed valve area by pressure half-time: 2cm^2/m^2. Peak gradient (D): 3.5mm Hg. Left atrium: The atrium was normal in size. Atrial septum: No defect or patent foramen ovale was identified. Right ventricle: The cavity size was normal. Systolic function was mildly reduced. Pulmonic valve: Doppler: There was no evidence for stenosis. There was mild regurgitation. Peak gradient (S): 2.6mm Hg. Tricuspid valve: Doppler: There was mild regurgitation. Pulmonary artery: Poorly visualized. Pulmonary systolic pressure was in the range of 30mm Hg to 40mm Hg. Right atrium: The atrium was normal in size. Pericardium: There was no pericardial effusion. Systemic veins: Inferior vena cava: Well visualized. The vessel was patent and normal in size. The respirophasic diameter changes were in the normal range (greater than or equal to 50%), consistent with normal central venous pressure. Baseline ECG: Normal sinus rhythm. Measurements Left ventricle Value Reference LV ID, ED, PLAX 5.2 cm 3.5 - 6.0 LV ID, ES, PLAX 3.2 cm 2.1 - 4.0 LV PW thickness, ED, PLAX 0.8 cm LV end-diastolic volume, 1-p A2C 104 ml LV ejection fraction, 1-p A2C 49 % LV end-diastolic volume, 1-p A4C 122 ml LV ejection fraction, 1-p A4C 67 % LV e', lateral 0.126 m/sec LV E/e', lateral 7 LV e', medial 0.114 m/sec LV E/e', medial 8 LV e', average 0.12 m/sec LV E/e', average 8 Ventricular septum Value Reference IVS thickness, ED, PLAX 1.1 cm LVOT Value Reference LVOT ID, A-P 2.1 cm LVOT area 3.6 cm^2 LVOT peak velocity, S 1.01 m/sec LVOT mean velocity, S 0.79 m/sec LVOT VTI, S 19.4 cm LVOT peak gradient, S 4.1 mm Hg LVOT mean gradient, S 2.7 mm Hg Stroke volume (SV), LVOT DP 69 ml Stroke index (SV/bsa), LVOT DP 30 ml/m^2 Aortic valve Value Reference Aortic valve peak velocity, S 1.2 m/sec Aortic valve mean velocity, S 0.96 m/sec Aortic valve VTI, S 23.0 cm Aortic mean gradient, S 3.9 mm Hg Aortic peak gradient, S 6 mm Hg VTI ratio, LVOT/AV 0.84 Aortic valve area, VTI 3 cm^2 Velocity ratio, peak, LVOT/AV 0.83 Aortic valve area, peak velocity 2.9 cm^2 Velocity ratio, mean, LVOT/AV 0.83 Aortic valve area, mean velocity 2.9 cm^2 Aortic valve area/bsa, mean velocity 1.3 cm^2/m^2 Aorta Value Reference Aortic root ID, ED 3.5 cm Ascending aorta ID, A-P, S 3.9 cm Left atrium Value Reference LA ID, A-P, ES 3.4 cm LA ID/bsa, A-P 1.5 cm/m^2 <=2.2 LA area, ES, A4C 21.3 cm^2 8.8 - 23.4 LA area, ES, A2C 19 cm^2 LA volume/bsa, ES, 1-p A4C 31 ml/m^2 LA volume, ES, 2-p 58 ml LA volume/bsa, ES, 2-p 25 ml/m^2 LA/aortic root ratio 0.99 Mitral valve Value Reference Mitral E-wave peak velocity 0.93 m/sec Mitral A-wave peak velocity 0.63 m/sec Mitral deceleration time 170 ms 150 - 230 Mitral pressure half-time 49 ms Mitral peak gradient, D 3.5 mm Hg Mitral E/A ratio, peak 1.48 Mitral valve area, PHT, DP 4.5 cm^2 Tricuspid valve Value Reference Tricuspid regurg peak velocity 2.9 m/sec Tricuspid peak RV-RA gradient 33.6 mm Hg Right atrium Value Reference RA area, ES, A4C 15.4 cm^2 8.3 - 19.5 Pulmonic valve Value Reference Pulmonic peak gradient, S 2.6 mm Hg Legend: (L) and (H) corey values outside specified reference range. I have personally reviewed the images and have reviewed and edited the reported findings. Electronically signed by Manuel Mccullough MD 09/30/2018 16:47
--- NOTE | 2018-09-30 14:42 | W.PM.PROGNOT ---
Date of Service Date of service: 09/30/18 Time of Service: 14:42 Assessment and Plan (1) Upper respiratory infection: Current visit: Yes Status: Acute Evidence of a febrile URI accompanied by subjective body aches and myalgias. Although the patient's rapid flu is negative, strongly suspect influenza as potential etiology. Flu by PCR is pending. Continue Oseltamivir, day #2. Continue supportive care, including IV fluids, anti-tussives, and nebs. Repeat CXR again negative. (2) EFRAÍN (acute kidney injury): Current visit: Yes Status: Acute Potentially prerenal in setting of acute illness and fevers. Creatinine improved but slightly above baseline. Continue IV fluids and monitor renal function. (3) Elevated troponin: Current visit: Yes Status: Acute Minimal and equivocal elevation in troponin that quickly down trended and normalized. This is in the setting of acute illness and poor clearance due to EFRAÍN. EKG reviewed, and overall appears to be nonischemic although of poor quality - repeat ekg this morning essentially unchanged. Patient was initiated in a heparin drip in accordance with recommendations from cardiology - discontinue now. Continue initiated daily aspirin and low-dose beta-rain therapy, and continue high potency statin. ECHO performed with read pending at this time. Suspect that this minimal troponin spill is likely due to demand ischemia, but given lengthy history of tobacco use the patient will still benefit from testing in the future. Stress test may need to be performed on an outpatient basis as patient is acutely ill. Continue to monitor on telemetry. (4) Tobacco use disorder, moderate, dependence: Current visit: No Status: Acute Approximate 50+-pack-year history of smoking noted. (5) Hyperlipidemia: Current visit: No Status: Acute Continue rosuvastatin. (6) Generalized anxiety disorder: Current visit: No Status: Acute Continue home regimen?patient is on SSRI therapy. (7) Gastroesophageal reflux disease: Current visit: No Status: Acute Currently on ranitidine. (8) Pulmonary nodule: Current visit: Yes Status: Acute Last CT 03/2016 with noted stable, circumscribed 5mm nodule, with recommendations for annual CT Screening. Current CXR negative for infection. If continued or worsening pulmonary symptoms tomorrow and/or abnormal exam consider reimaging with CT Scan. (9) DVT prophylaxis: Current visit: Yes Status: Acute Initiate SC Heparin. Subjective Interval history since last seen: 63-year-old man with past medical history significant for daily tobacco abuse, presented to [facility] Emergency Department today with complaints of feeling unwell. Mr. Roberson has a past medical history significant for generalized anxiety disorder, depression, and insomnia. He also has noted spinal stenosis in the C-spine, and suffers from GERD. Review of his prior imaging shows evidence of a pulmonary nodule. He is also a daily long-term tobacco user, with an approximate [id number] history of smoking. The patient presented to the emergency department today with complaints of subjective fevers, cough, and body aches. He was noted to be mildly hypotensive, and initially tachycardic. He also had a documented fever with a temperature of 38 ?C. Entirety of the rest of his workup was negative, including a contaminated appearing urinalysis, normal EKG, and a chest x-ray without acute abnormalities. However the patient was noted to have evidence of mild acute kidney injury with a creatinine of 1.6, and a minimal elevation in his troponin that was already downtrending prior to admission. Given the findings patient was admitted for further evaluation and treatment. Since admission the patient's troponin has normalized. He does remain febrile with a TMax of 38.5. Reports continued cough and poor sleep overnight. Exam Narrative Exam Narrative: General: Patient appears comfortable, AAOX3, NAD Neck: Supple CV: Regular, nontachycardic, S1S2, No rubs, murmurs, or gallops. Pulmonary: More rhonchorous than initial exam, with mild crackles on right base. Minimal wheezing also noted diffusely. Abdomen: + Bowel Sounds, soft, nontender, nondistended Vascular: No lower extremity edema Psych: Normal mood and affect. Objective Objective Clinical Data: Abnormal lab results 09/29/18 09/29/18 09/29/18 Range/Units 15:05 15:05 18:30 RBC (4.50-6.00) m/cumm Hgb (13.5-17.5) g/dL Hct (40.0-50.0) % Plt Count (130-400) x1000/uL MPV (8.0-11.0) fL Absolute Lymphocytes (1.2-3.4) k/cumm APTT 52.1 H D (21.0-31.4) sec Chloride (98-107) mmol/L Creatinine (0.70-1.30) mg/dL Calcium (8.5-10.1) mg/dL Troponin I 0.10 H (0.00-0.06) ng/mL Urine Protein Trace H (Negative) mg/dL Urine Ketones 15 H (Negative) mg/dL Urine Bilirubin Large H (Negative) Ur Leukocyte Esterase Trace H (Negative) Urine RBC 3-5 H (0-2) 09/30/18 09/30/18 09/30/18 Range/Units 07:15 07:15 07:15 RBC 4.18 L (4.50-6.00) m/cumm Hgb 13.0 L (13.5-17.5) g/dL Hct 39.0 L (40.0-50.0) % Plt Count 103 L (130-400) x1000/uL MPV 11.5 H (8.0-11.0) fL Absolute Lymphocytes 0.60 L (1.2-3.4) k/cumm APTT 58.8 H (21.0-31.4) sec Chloride 108 H (98-107) mmol/L Creatinine 1.33 H (0.70-1.30) mg/dL Calcium 8.2 L (8.5-10.1) mg/dL Troponin I (0.00-0.06) ng/mL Urine Protein (Negative) mg/dL Urine Ketones (Negative) mg/dL Urine Bilirubin (Negative) Ur Leukocyte Esterase (Negative) Urine RBC (0-2) Vital Signs Temperature 37.7 C H 09/30/18 11:30 Temperature Source Tympanic 09/30/18 11:30 Pulse 75 09/30/18 11:30 Pulse Rhythm Regular 09/30/18 07:27 Pulse 94 H 09/29/18 17:15 Respiratory Rate 18 09/30/18 11:30 Respiratory Effort Non-Labored 09/30/18 07:27 Respiratory Depth Normal 09/30/18 07:27 Respiratory Pattern Normal 09/30/18 07:27 Blood Pressure 115/72 09/30/18 11:30 Blood Pressure Mean 69 09/29/18 17:15 Blood Pressure Position Supine 09/29/18 11:02 Pulse Oximetry 93 L 09/30/18 11:30 Oxygen Delivery Method Room Air 09/30/18 11:30 Oxygen Flow Rate 0 09/30/18 11:30 Pain Level 0 09/30/18 07:27 Comment 09/30/18 09:27 Intake & Output 09/29/18 09/30/18 09/30/18 23:59 11:59 23:59 Intake Total 2582.25 / 2582.25 2700.25 / 2700.25 0 / 2700.25 Output Total 400 / 400 800 / 800 Balance 2182.25 / 2182.25 1900.25 / 1900.25 0 / 1900.25 Weight 104.6 kg Intake: IV 2332.25 / 2332.25 2340.25 / 2340.25 0 / 2340.25 Oral 250 / 250 360 / 360 Output: Urine 400 / 400 800 / 800 Other: Urine Color Light Mayi Urine Odor Strong Stool Size Small Moderate Stool Characteristics Soft Soft Brown Formed Voiding Methods Toilet Urinal Laboratory Results WBC 5.69 k/cumm (4.4-10.8) D 09/30/18 07:15 RBC 4.18 m/cumm (4.50-6.00) L 09/30/18 07:15 Hgb 13.0 g/dL (13.5-17.5) L 09/30/18 07:15 Hct 39.0 % (40.0-50.0) L 09/30/18 07:15 MCV 93.3 fL (80-95) 09/30/18 07:15 MCH 31.1 pg (27.0-33.0) 09/30/18 07:15 MCHC 33.3 g/dL (32.0-36.0) 09/30/18 07:15 RDW 14.0 % (11.8-14.1) 09/30/18 07:15 Plt Count 103 x1000/uL (130-400) L 09/30/18 07:15 MPV 11.5 fL (8.0-11.0) H 09/30/18 07:15 Immature Gran % 0.4 09/30/18 07:15 Neutrophils % 77.8 09/30/18 07:15 Lymphocytes % 10.5 09/30/18 07:15 Monocytes % 9.7 09/30/18 07:15 Eosinophils % 1.2 09/30/18 07:15 Basophils % 0.4 09/30/18 07:15 Absolute Neutrophils 4.43 k/cumm (1.2-6.7) 09/30/18 07:15 Absolute Lymphocytes 0.60 k/cumm (1.2-3.4) L 09/30/18 07:15 Absolute Monocytes 0.55 k/cumm (0.11-0.7) 09/30/18 07:15 Absolute Eosinophils 0.07 k/cumm (0.0-0.7) 09/30/18 07:15 Absolute Basophils 0.02 k/cumm (0.0-0.2) 09/30/18 07:15 PT 11.0 sec (9.3-11.0) 09/29/18 11:20 INR 1.1 (0.9-1.1) 09/29/18 11:20 APTT 58.8 sec (21.0-31.4) H 09/30/18 07:15 Sodium 140 mmol/L (136-145) 09/30/18 07:15 Potassium 4.3 mmol/L (3.5-5.1) 09/30/18 07:15 Chloride 108 mmol/L (98-107) H 09/30/18 07:15 Carbon Dioxide 22.5 mmol/L (21.0-32.0) 09/30/18 07:15 Anion Gap 9.5 mmol/L (3-11) 09/30/18 07:15 BUN 16 mg/dL (7-18) 09/30/18 07:15 Creatinine 1.33 mg/dL (0.70-1.30) H 09/30/18 07:15 Estimated GFR/1.73 m2 54.31 (mL/min/1.73m2) 09/30/18 07:15 Glucose 91 mg/dL (70-100) 09/30/18 07:15 Calcium 8.2 mg/dL (8.5-10.1) L 09/30/18 07:15 Magnesium 1.9 mg/dL (1.8-2.4) 09/30/18 07:15 Total Bilirubin 1.0 mg/dL (0.2-1.0) 09/29/18 11:20 AST 25 U/L (15-37) 09/29/18 11:20 ALT 42 U/L (12-78) 09/29/18 11:20 Alkaline Phosphatase 84 U/L (46-116) 09/29/18 11:20 Troponin I 0.04 ng/mL (0.00-0.06) 09/30/18 07:15 Total Protein 6.7 g/dL (6.4-8.2) 09/29/18 11:20 Albumin 3.6 g/dL (3.4-5.0) 09/29/18 11:20 TSH 1.51 uIU/mL (0.358-3.74) 09/29/18 11:20 Urine Color Yellow (Yellow) 09/29/18 15:05 Urine Clarity Clear 09/29/18 15:05 Urine pH 5.5 (5-8) 09/29/18 15:05 Ur Specific [place] 1.015 (1.005-1.025) 09/29/18 15:05 Urine Protein Trace mg/dL (Negative) H 09/29/18 15:05 Urine Ketones 15 mg/dL (Negative) H 09/29/18 15:05 Urine Blood Negative (Negative) 09/29/18 15:05 Urine Nitrite Negative (Negative) 09/29/18 15:05 Urine Bilirubin Large (Negative) H 09/29/18 15:05 Urine Urobilinogen 0.2 EU/dL (Up TO 0.2) 09/29/18 15:05 Ur Leukocyte Esterase Trace (Negative) H 09/29/18 15:05 Urine RBC 3-5 (0-2) H 09/29/18 15:05 Urine WBC 5-10 HPF (0-5) 09/29/18 15:05 Ur Epithelial Cells Many HPF (Negative) 09/29/18 15:05 Urine Crystals Negative HPF (Negative) 09/29/18 15:05 Urine Bacteria Rare HPF (Negative) 09/29/18 15:05 Urine Casts Negative LPF (Negative) 09/29/18 15:05 Urine Mucus Negative (Negative) 09/29/18 15:05 Ur Culture Indicated? No/sq. contamination 09/29/18 15:05 Urine Glucose Negative mg/dL (Negative) 09/29/18 15:05 Objective Narrative Objective Narrative: Exam(s) a RAD:XR chest 2V PA & lateral SYMPTOM/DIAGNOSIS: FEVER, COUGH, URI PA AND LATERAL CHEST: Comparison is made with the previous day's exam. The heart size is within normal limits. The PA view is mildly rotated. Leads overlie the chest. No infiltrate, effusion or pulmonary edema is seen. No pulmonary nodules are identified. There are mild fibrotic changes. IMPRESSION: No acute abnormality.
--- NOTE | 2018-09-30 15:14 | PDOC.CMIN ---
- If Service Date Differs Date of service: 09/30/18 Time of Service: 15:14 Care Management Initial Assess REASON FOR HOSPITALIZATION:: URI, Elevated Troponin PAST MEDICAL HISTORY/PAST SURGICAL HISTORY:: Tobacco use disorder, Spinal stenosis, Speech disorder, Migraine, Hyperlipidemia, Generalized anxiety disorder, GERD, Depressive disorder PREVIOUS FUNCTIONAL STATUS/SOCIAL/FAMILY SUPPORTS:: Alex resides alone in [facility]. He states that he has a daughter whom resides in [place]. Alex states that he is independent at baseline. He does not drive and depends on [facility] for transportation. CURRENT FUNCTIONAL STATUS:: Alex is lying in bed this morning. He coughs throughout discussion. ADVANCE DIRECTIVES:: None on file Has patient been provided with information about the portal?: Yes Did the patient sign up for the portal?: No CODE STATUS:: Full Code INSURANCE COVERAGE / FINANCIAL ISSUES:: Medicare, Medicaid CURRENT HOME/COMMUNITY SERVICES/EQUIPMENT:: Currently Alex has MOW in the community. PRIMARY CARE PHYSICIAN:: Dr. Nguyen POTENTIAL DISCHARGE NEEDS:: F/U appointment with PCP. resume [facility] PATIENT/FAMILY EDUCATION NEEDS:: Review DC instructions, any limitations, and ongoing DC planning discussion. Discuss 'Ask Me Three' ANTICIPATED BARRIERS TO DISCHARGE:: None identified at this time TRANSPORTATION:: Via [facility] PLAN:: Alex will return home with continued M[facility] services. He will F/U with PCP and plan of care as prescribed. Alex will transport via [facility] when ready.
--- NOTE | 2018-09-30 15:19 | INITIAL_ITS ---
- If Service Date Differs Date of service: 09/30/18 Time of Service: 15:14 Care Management Initial Assess REASON FOR HOSPITALIZATION:: URI, Elevated Troponin PAST MEDICAL HISTORY/PAST SURGICAL HISTORY:: Tobacco use disorder, Spinal stenosis, Speech disorder, Migraine, Hyperlipidemia, Generalized anxiety disorder, GERD, Depressive disorder PREVIOUS FUNCTIONAL STATUS/SOCIAL/FAMILY SUPPORTS:: Alex resides alone in [facility]. He states that he has a daughter whom resides in [place]. Alex states that he is independent at baseline. He does not drive and depends on [facility] for transportation. CURRENT FUNCTIONAL STATUS:: Alex is lying in bed this morning. He coughs throughout discussion. ADVANCE DIRECTIVES:: None on file Has patient been provided with information about the portal?: Yes Did the patient sign up for the portal?: No CODE STATUS:: Full Code INSURANCE COVERAGE / FINANCIAL ISSUES:: Medicare, Medicaid CURRENT HOME/COMMUNITY SERVICES/EQUIPMENT:: Currently Alex has MOW in the community. PRIMARY CARE PHYSICIAN:: Dr. Nguyen POTENTIAL DISCHARGE NEEDS:: F/U appointment with PCP. resume [facility] PATIENT/FAMILY EDUCATION NEEDS:: Review DC instructions, any limitations, and on going DC planning discussion. Discuss 'Ask Me Three' ANTICIPATED BARRIERS TO DISCHARGE:: None identified at this time TRANSPORTATION:: Via [facility] PLAN:: Alex will return home with continued [facility] services. He will F/U with PCP and plan of care as prescribed. Alex will transport via [facility] when ready.
[2018-09-30] MEDS: Heparin 5,000 UNITS/ML VIAL 5000 UNITS SC ×2 (15:53→23:21)
[2018-09-30] MEDS: ROSUVASTATIN 20 MG TAB PO (19:14)
[2018-09-30] MEDS: Amitriptyline 25 MG TAB PO (21:49)
[2018-10-01] VITALS (17 sets, daily range): BP systolic 111–151; BP diastolic 56–91; PULSE 62–83; RESP 1–30; TEMP 36.4–38.4; O2SAT 91–98
[2018-10-01] MEDS: Metoprolol 12.5 MG TAB PO ×2 (03:24→15:53)
[2018-10-01] MEDS: Normal Saline 1,000 ML 150 ML IV ×2 (05:40→12:56)
[2018-10-01 07:34] LABS: Abs Immature Grans 0.01 k/cumm (0.0-0.09); Absolute Basophil Count 0.02 k/cumm (0.0-0.2); Absolute Eosinophil Count 0.05 k/cumm (0.0-0.7); Absolute Lymphocyte Count 0.68 k/cumm (1.2-3.4); Absolute Monocyte Count 0.52 k/cumm (0.11-0.7); Absolute Neutrophil Count 3.19 k/cumm (1.2-6.7); Basophils % 0.4; Eosinophils % 1.1; HCT 39.4 % (40.0-50.0); HGB 13.1 g/dL (13.5-17.5); Immature Grans % 0.2; Lymphocytes % 15.2; Mean Corp. HGB Concentration 33.2 g/dL (32.0-36.0); Mean Corpuscular Hemoglobin 31.1 pg (27.0-33.0); Mean Corpuscular Volume 93.6 fL (80-95); Monocytes % 11.6; Neutrophils % 71.5; RBC 4.21 m/cumm (4.50-6.00); RBC Distribution Width 14.1 % (11.8-14.1); White Blood Cell Count 4.47 k/cumm (4.4-10.8)
[2018-10-01 07:40] LABS: Anion Gap 9.8 mmol/L (3-11); BUN 12 mg/dL (7-18); CO2 23.2 mmol/L (21.0-32.0); Calcium 8.2 mg/dL (8.5-10.1); Chloride 107 mmol/L (98-107); Glucose 82 mg/dL (70-100); Magnesium 1.9 mg/dL (1.8-2.4); Potassium 4.4 mmol/L (3.5-5.1); Sodium 140 mmol/L (136-145)
[2018-10-01] MEDS: Aspirin 81 MG CHEW PO (08:05)
[2018-10-01] MEDS: Benzonatate 200 MG CAP PO ×3 (08:05→19:56)
[2018-10-01] MEDS: Acetaminophen 325 MG TAB PO ×2 (08:05→12:56)
[2018-10-01] MEDS: Gabapentin 600 MG TAB PO ×3 (08:05→19:56)
[2018-10-01] MEDS: Oseltamivir 75 MG CAP PO (08:05)
[2018-10-01] MEDS: FLUoxetine 20 MG CAP PO (08:05)
[2018-10-01 09:00] LABS: Platelet Count 88 x1000/uL (130-400)
[2018-10-01] MEDS: Magnesium Oxide 400 MG TAB PO (09:27)
[2018-10-01] MEDS: Albuterol/Ipratropium 3 ML UPD VIAL UPD (09:40)
--- NOTE | 2018-10-01 09:41 | PDOC.CMPRO ---
- If Service Date Differs Date of service: 10/01/18 Time of Service: 09:41 Care Management Progress Note S/O: Alex is lying in bed today, pleasant and receptive to discussion. Alex coughs frequently throughout visit, and states this flu is hard on me. Alex smiles frequently throughout discussion, and states that he is hopeful to start feeling better. Discussed DC plan - no change in plan at this time. A: 63 y/o male admitted 09/29/18 for URI P: Alex will return home with continued M[facility] once medically cleared. He will F/U with PCP and plan of care as prescribed. Alex to transport via [facility] when ready.
--- NOTE | 2018-10-01 10:35 | DI.CT_ITS ---
SYMPTOM/DIAGNOSIS: WORSENING COUGH. rULE OUT PNEUMONIA NONCONTRAST CHEST CT: Comparison with [address] CT and chest x-ray of 30 Sep 2018 There are tiny bilateral pleural effusions. There are ground glass opacities seen in the right upper lobe greatest anteriorly. There are also some other patchy areas seen in the right middle as well as right lower lobe. There is respiratory motion at the lung bases. There is a focal area of atelectasis vs consolidation at the posterior right lung base. There are underlying changes of central lobular emphysema greatest in the upper lobes. There is some intralobular septal thickening greatest at the lung bases which could indicate an element of pulmonary edema. A 5 mm nodule at the left lung base is unchanged but barely visible due to respiratory motion. There is left ventricular enlargement. There is mild calcification at the aorta. There are small mediastinal lymph nodes which have increased in size compared to the previous exam, presumably reactive. Severe fatty infiltration and liver cysts are again noted. The gallbladder and upper portions of the spleen, pancreas and right kidney are unremarkable. The left kidney again appears atrophic. IMPRESSION: Right upper and middle lobe infiltrates, Question of a right basilar atelectasis vs consolidation. Tiny bilateral pleural effusions and pulmonary edema.
[2018-10-01 11:23] LABS: ALT 48 U/L (12-78); AST 42 U/L (15-37); Alkaline Phosphatase 66 U/L (46-116); Bilirubin, Direct 0.13 mg/dL (0.00-0.20); Bilirubin, Total 0.4 mg/dL (0.2-1.0); Total Protein 6.1 g/dL (6.4-8.2)
[2018-10-01 11:28] LABS: Lyme Ab w Rflx to Lyme Confirm Negative
[2018-10-01 13:57] LABS: Influenza A RNA Result Negative; Influenza B RNA Result Negative; RSV RNA Result Negative
[2018-10-01] MEDS: PIPERACILLIN/TAZO 4.5 GM in Normal Saline 100 ML IVPB (14:04)
--- NOTE | 2018-10-01 15:40 | W.PM.PROGNOT ---
Date of Service Date of service: 10/01/18 Time of Service: 15:40 Assessment and Plan (1) Upper respiratory infection: Current visit: Yes Status: Acute Evidence of a febrile URI accompanied by subjective body aches and myalgias. Initiallyl treated as potential flu, patient has not improved on Oseltamivir, and now with Influenza by PCR returning as negative. Symptoms likely on basis of pneumonia. (2) Pneumonia: Current visit: Yes Status: Acute As confirmed by CT today - Initiate Levofloxacin. Initially also started on Vancomycin as Influenza had not returned (potential for post influenza PNA and need for MRSA coverage) - will continue for now. Initiate IV Steroids, continue duonebs, and monitor cultures - so far with no growth on both blood and sputum cultures. (3) EFRAÍN (acute kidney injury): Current visit: Yes Status: Acute Potentially prerenal in setting of acute illness and fevers. Creatinine improved and now appears at baseline. Continue IV fluids, especially given continued fevers, but decrease rate given pulmonary edema by CT. Continue to monitor renal function. (4) Elevated troponin: Current visit: Yes Status: Acute Minimal and equivocal elevation in troponin that quickly down trended and normalized. This is in the setting of acute illness and poor clearance due to EFRAÍN. EKG reviewed, and overall appears to be nonischemic although of poor quality - repeat ekg this morning essentially unchanged. Patient was initiated in a heparin drip in accordance with recommendations from cardiology - discontinued. Continue initiated daily aspirin and low-dose beta-rain therapy, and continue high potency statin. ECHO performed essentially normal (no mention of wall motion abnormalities, mildly decreased RV function). Suspect that this minimal troponin spill is likely due to demand ischemia, but given lengthy history of tobacco use the patient will still benefit from testing in the future. Stress test may need to be performed on an outpatient basis as patient is acutely ill. Continue to monitor on telemetry. (5) Tobacco use disorder, moderate, dependence: Current visit: No Status: Acute Approximate 50+-pack-year history of smoking noted. (6) Hyperlipidemia: Current visit: No Status: Acute Continue rosuvastatin. (7) Generalized anxiety disorder: Current visit: No Status: Acute Continue home regimen?patient is on SSRI therapy. (8) Gastroesophageal reflux disease: Current visit: No Status: Acute Currently on ranitidine. (9) Pulmonary nodule: Current visit: Yes Status: Acute Last CT 03/2016 with noted stable, circumscribed 5mm nodule, with recommendations for annual CT Screening. Repeat CT today with unchanged 5mm nodule, on somewhat limited view. Follow-up chronically as an outpatient. (10) DVT prophylaxis: Current visit: Yes Status: Acute Initiate SC Heparin. Subjective Interval history since last seen: 63-year-old man with past medical history significant for daily tobacco abuse, presented to [facility] Emergency Department today with complaints of feeling unwell. Mr. Roberson has a past medical history significant for generalized anxiety disorder, depression, and insomnia. He also has noted spinal stenosis in the C-spine, and suffers from GERD. Review of his prior imaging shows evidence of a pulmonary nodule. He is also a daily long-term tobacco user, with an approximate [id number] history of smoking. The patient presented to the emergency department today with complaints of subjective fevers, cough, and body aches. He was noted to be mildly hypotensive, and initially tachycardic. He also had a documented fever with a temperature of 38 ?C. Entirety of the rest of his workup was negative, including a contaminated appearing urinalysis, normal EKG, and a chest x-ray without acute abnormalities. However the patient was noted to have evidence of mild acute kidney injury with a creatinine of 1.6, and a minimal elevation in his troponin that was already downtrending prior to admission. Given the findings patient was admitted for further evaluation and treatment. Since admission the patient's troponin has normalized. However, he remains febrile despite day 3 of treatment with Tamiflu. Given his lack of progression and his abnormal exam a CXR was obtained yesterday and remained negative, prompting a CT Scan of the chest today demonstrating infiltrates in the Right upper and middle lobes, and a question of a right basilar atelectasis vs consolidation as well. Also with noted pulmonary edema. ECHO was previously checked and essentially normal (PAP 30-40). Influenza by PCR now returned and negative. Reports continued cough and poor sleep overnight. Exam Narrative Exam Narrative: General: Patient appears comfortable, AAOX3, NAD Neck: Supple CV: Regular, nontachycardic, S1S2, No rubs, murmurs, or gallops. Pulmonary: More rhonchorous than initial exam, with worsening crackles on right base now extending to right mid lung zone. Worsening wheezing also noted diffusely. Abdomen: + Bowel Sounds, soft, nontender, nondistended Vascular: No lower extremity edema Psych: Normal mood and affect. Objective Objective Clinical Data: Abnormal lab results 10/01/18 10/01/18 Range/Units 07:08 07:08 RBC 4.21 L (4.50-6.00) m/cumm Hgb 13.1 L (13.5-17.5) g/dL Hct 39.4 L (40.0-50.0) % Plt Count 88 L (130-400) x1000/uL MPV 12.0 H (8.0-11.0) fL Absolute Lymphocytes 0.68 L (1.2-3.4) k/cumm Calcium 8.2 L (8.5-10.1) mg/dL AST 42 H (15-37) U/L Total Protein 6.1 L (6.4-8.2) g/dL Albumin 3.0 L (3.4-5.0) g/dL Vital Signs Temperature 38.1 C H 10/01/18 12:56 Temperature Source Tympanic 10/01/18 11:30 Pulse 75 10/01/18 11:30 Pulse Rhythm Regular 10/01/18 08:44 Pulse 94 H 09/29/18 17:15 Respiratory Rate 18 10/01/18 11:30 Respiratory Effort Non-Labored 10/01/18 08:44 Respiratory Depth Normal 10/01/18 08:44 Respiratory Pattern Normal 10/01/18 08:44 Blood Pressure 125/56 L 10/01/18 11:30 Blood Pressure Mean 69 09/29/18 17:15 Blood Pressure Position Supine 09/29/18 11:02 Pulse Oximetry 91 L 10/01/18 11:30 Oxygen Delivery Method Room Air 10/01/18 11:30 Oxygen Flow Rate 0 10/01/18 11:30 Pain Level 2 10/01/18 07:59 Comment 09/30/18 17:45 Intake & Output 09/30/18 10/01/18 10/01/18 23:59 11:59 23:59 Intake Total 2445 / 5145.25 1185 / 2185 1000 / 2185 Output Total 250 / 1050 500 / 950 450 / 950 Balance 2195 / 4095.25 685 / 1235 550 / 1235 Intake: IV 1355 / 3695.25 945 / 1945 1000 / 1945 Oral 1090 / 1450 240 / 240 Output: Urine 250 / 1050 500 / 950 450 / 950 Other: Urine Color Yellow Yellow Yellow Urine Appearance Clear Clear Clear Urine Odor None None None Comment Void x1 in the toilet. no hat unable to measure. Stool Size Small Large Stool Characteristics Soft Soft Formed Formed Voiding Methods Toilet Toilet Toilet Laboratory Results WBC 4.47 k/cumm (4.4-10.8) 10/01/18 07:08 RBC 4.21 m/cumm (4.50-6.00) L 10/01/18 07:08 Hgb 13.1 g/dL (13.5-17.5) L 10/01/18 07:08 Hct 39.4 % (40.0-50.0) L 10/01/18 07:08 MCV 93.6 fL (80-95) 10/01/18 07:08 MCH 31.1 pg (27.0-33.0) 10/01/18 07:08 MCHC 33.2 g/dL (32.0-36.0) 10/01/18 07:08 RDW 14.1 % (11.8-14.1) 10/01/18 07:08 Plt Count 88 x1000/uL (130-400) L 10/01/18 07:08 MPV 12.0 fL (8.0-11.0) H 10/01/18 07:08 Immature Gran % 0.2 10/01/18 07:08 Neutrophils % 71.5 10/01/18 07:08 Lymphocytes % 15.2 10/01/18 07:08 Monocytes % 11.6 10/01/18 07:08 Eosinophils % 1.1 10/01/18 07:08 Basophils % 0.4 10/01/18 07:08 Absolute Neutrophils 3.19 k/cumm (1.2-6.7) 10/01/18 07:08 Absolute Lymphocytes 0.68 k/cumm (1.2-3.4) L 10/01/18 07:08 Absolute Monocytes 0.52 k/cumm (0.11-0.7) 10/01/18 07:08 Absolute Eosinophils 0.05 k/cumm (0.0-0.7) 10/01/18 07:08 Absolute Basophils 0.02 k/cumm (0.0-0.2) 10/01/18 07:08 PT 11.0 sec (9.3-11.0) 09/29/18 11:20 INR 1.1 (0.9-1.1) 09/29/18 11:20 APTT 58.8 sec (21.0-31.4) H 09/30/18 07:15 Sodium 140 mmol/L (136-145) 10/01/18 07:08 Potassium 4.4 mmol/L (3.5-5.1) 10/01/18 07:08 Chloride 107 mmol/L (98-107) 10/01/18 07:08 Carbon Dioxide 23.2 mmol/L (21.0-32.0) 10/01/18 07:08 Anion Gap 9.8 mmol/L (3-11) 10/01/18 07:08 BUN 12 mg/dL (7-18) 10/01/18 07:08 Creatinine 1.20 mg/dL (0.70-1.30) 10/01/18 07:08 Estimated GFR/1.73 m2 >= 60.00 (mL/min/1.73m2) 10/01/18 07:08 Glucose 82 mg/dL (70-100) 10/01/18 07:08 Calcium 8.2 mg/dL (8.5-10.1) L 10/01/18 07:08 Magnesium 1.9 mg/dL (1.8-2.4) 10/01/18 07:08 Total Bilirubin 0.4 mg/dL (0.2-1.0) 10/01/18 07:08 Conjugated Bilirubin 0.13 mg/dL (0.00-0.20) 10/01/18 07:08 AST 42 U/L (15-37) H 10/01/18 07:08 ALT 48 U/L (12-78) 10/01/18 07:08 Alkaline Phosphatase 66 U/L (46-116) 10/01/18 07:08 Troponin I 0.04 ng/mL (0.00-0.06) 09/30/18 07:15 Total Protein 6.1 g/dL (6.4-8.2) L 10/01/18 07:08 Albumin 3.0 g/dL (3.4-5.0) L 10/01/18 07:08 TSH 1.51 uIU/mL (0.358-3.74) 09/29/18 11:20 Urine Color Yellow (Yellow) 09/29/18 15:05 Urine Clarity Clear 09/29/18 15:05 Urine pH 5.5 (5-8) 09/29/18 15:05 Ur Specific [place] 1.015 (1.005-1.025) 09/29/18 15:05 Urine Protein Trace mg/dL (Negative) H 09/29/18 15:05 Urine Ketones 15 mg/dL (Negative) H 09/29/18 15:05 Urine Blood Negative (Negative) 09/29/18 15:05 Urine Nitrite Negative (Negative) 09/29/18 15:05 Urine Bilirubin Large (Negative) H 09/29/18 15:05 Urine Urobilinogen 0.2 EU/dL (Up TO 0.2) 09/29/18 15:05 Ur Leukocyte Esterase Trace (Negative) H 09/29/18 15:05 Urine RBC 3-5 (0-2) H 09/29/18 15:05 Urine WBC 5-10 HPF (0-5) 09/29/18 15:05 Ur Epithelial Cells Many HPF (Negative) 09/29/18 15:05 Urine Crystals Negative HPF (Negative) 09/29/18 15:05 Urine Bacteria Rare HPF (Negative) 09/29/18 15:05 Urine Casts Negative LPF (Negative) 09/29/18 15:05 Urine Mucus Negative (Negative) 09/29/18 15:05 Ur Culture Indicated? No/sq. contamination 09/29/18 15:05 Urine Glucose Negative mg/dL (Negative) 09/29/18 15:05 Specimen Type Nasopharengal 09/29/18 16:30 Lyme Disease Antibody Negative 09/29/18 11:20 Influenza Type A RNA Negative 09/29/18 16:30 Influenza Type B RNA Negative 09/29/18 16:30 RSV RNA Qual (PCR) Negative 09/29/18 16:30 Objective Narrative Objective Narrative: Exam(s) 10/[address]:CT chest wo SYMPTOM/DIAGNOSIS: WORSENING COUGH. rULE OUT PNEUMONIA NONCONTRAST CHEST CT: Comparison with [address] CT and chest x-ray of 30 Sep 2018 There are tiny bilateral pleural effusions. There are ground glass opacities seen in the right upper lobe greatest anteriorly. There are also some other patchy areas seen in the right middle as well as right lower lobe. There is respiratory motion at the lung bases. There is a focal area of atelectasis vs consolidation at the posterior right lung base. There are underlying changes of central lobular emphysema greatest in the upper lobes. There is some intralobular septal thickening greatest at the lung bases which could indicate an element of pulmonary edema. A 5 mm nodule at the left lung base is unchanged but barely visible due to respiratory motion. There is left ventricular enlargement. There is mild calcification at the aorta. There are small mediastinal lymph nodes which have increased in size compared to the previous exam, presumably reactive. Severe fatty infiltration and liver cysts are again noted. The gallbladder and upper portions of the spleen, pancreas and right kidney are unremarkable. The left kidney again appears atrophic. IMPRESSION: Right upper and middle lobe infiltrates, Question of a right basilar atelectasis vs consolidation. Tiny bilateral pleural effusions and pulmonary edema.
[2018-10-01] MEDS: methylPREDNISolone SUCC 125 MG VIAL 60 MG IVP ×2 (15:52→23:56)
[2018-10-01] MEDS: LEVOFLOXACIN 750 MG/150 ML BAG 100 MG IVPB (15:55)
[2018-10-01] MEDS: VANCOMYCIN 1,250 MG in Normal Saline 250 ML 166.667 MG IV (18:03)
[2018-10-01] MEDS: guaiFENesin/D-METHORPHAN HB 5 ML CUP 10 ML PO (19:56)
[2018-10-01] MEDS: ROSUVASTATIN 20 MG TAB PO (19:58)
[2018-10-01] MEDS: Amitriptyline 25 MG TAB PO (20:54)
[2018-10-02] VITALS (8 sets, daily range): BP systolic 122–146; BP diastolic 74–84; PULSE 55–69; RESP 12–20; TEMP 36.8–37.1; O2SAT 92–94
[2018-10-02] MEDS: Normal Saline 1,000 ML 75 ML IV (01:30)
[2018-10-02] MEDS: VANCOMYCIN 1,250 MG in Normal Saline 250 ML 166.667 MG IV (04:11)
[2018-10-02] MEDS: Metoprolol 12.5 MG TAB PO ×2 (04:12→15:44)
[2018-10-02 07:16] LABS: Abs Immature Grans 0.01 k/cumm (0.0-0.09); Absolute Lymphocyte Count 0.44 k/cumm (1.2-3.4); Absolute Monocyte Count 0.21 k/cumm (0.11-0.7); Absolute Neutrophil Count 4.41 k/cumm (1.2-6.7); HCT 40.4 % (40.0-50.0); HGB 13.6 g/dL (13.5-17.5); Immature Grans % 0.2; Lymphocytes % 8.7; Mean Corp. HGB Concentration 33.7 g/dL (32.0-36.0); Mean Corpuscular Hemoglobin 31.1 pg (27.0-33.0); Mean Corpuscular Volume 92.2 fL (80-95); Mean Platelet Volume 12.1 fL (8.0-11.0); Monocytes % 4.1; Platelet Count 114 x1000/uL (130-400); RBC 4.38 m/cumm (4.50-6.00); White Blood Cell Count 5.07 k/cumm (4.4-10.8)
[2018-10-02 07:40] LABS: Anion Gap 10.4 mmol/L (3-11); BUN 12 mg/dL (7-18); CO2 23.6 mmol/L (21.0-32.0); CREATININE 1.28 mg/dL (0.70-1.30); Calcium 8.5 mg/dL (8.5-10.1); Chloride 106 mmol/L (98-107); Estimated GFR 56.76 (mL/min/1.73m2); Glucose 143 mg/dL (70-100); Magnesium 1.9 mg/dL (1.8-2.4); Potassium 4.2 mmol/L (3.5-5.1); Sodium 140 mmol/L (136-145)
[2018-10-02] MEDS: FLUoxetine 20 MG CAP PO (07:47)
[2018-10-02] MEDS: Gabapentin 600 MG TAB PO ×3 (07:47→20:12)
[2018-10-02] MEDS: Benzonatate 200 MG CAP PO ×3 (07:48→20:11)
[2018-10-02] MEDS: Aspirin 81 MG CHEW PO (07:48)
[2018-10-02] MEDS: Magnesium Oxide 400 MG TAB PO (09:19)
[2018-10-02] MEDS: methylPREDNISolone SUCC 125 MG VIAL 60 MG IVP ×2 (09:19→18:16)
[2018-10-02] MEDS: LEVOFLOXACIN 750 MG/150 ML BAG 100 MG IVPB (13:48)
--- NOTE | 2018-10-02 14:46 | W.PM.PROGNOT ---
Date of Service Date of service: 10/02/18 Time of Service: 14:46 Assessment and Plan (1) Upper respiratory infection: Current visit: Yes Status: Acute Evidence of a febrile URI accompanied by subjective body aches and myalgias. Initiallyl treated as potential flu, patient had not improved on Oseltamivir, and now with Influenza by PCR returning as negative. Symptoms likely on basis of pneumonia. (2) Pneumonia: Current visit: Yes Status: Acute As confirmed by CT on 10/01 - Initiated Levofloxacin. Initially also started on Vancomycin as Influenza had not returned (potential for post influenza PNA and need for MRSA coverage) - discontinued. Continue IV Steroids, duonebs, and monitor cultures - so far with no growth on both blood and sputum cultures. (3) EFRAÍN (acute kidney injury): Current visit: Yes Status: Acute Likely pre-renal in setting of acute illness and fevers. Creatinine improved and now appears at baseline. Discontinue IV fluids. Continue to monitor renal function. (4) Elevated troponin: Current visit: Yes Status: Acute Minimal and equivocal elevation in troponin that quickly down trended and normalized. This is in the setting of acute illness and poor clearance due to EFRAÍN. EKG reviewed, and overall appears to be nonischemic although of poor quality - repeat ekg this morning essentially unchanged. Patient was initiated in a heparin drip in accordance with recommendations from cardiology - discontinued. Continue initiated daily aspirin and low-dose beta-rain therapy, and continue high potency statin. ECHO performed essentially normal (no mention of wall motion abnormalities, mildly decreased RV function). Suspect that this minimal troponin spill is likely due to demand ischemia, but given lengthy history of tobacco use the patient will still benefit from testing in the future. Stress test may need to be performed on an outpatient basis as patient is acutely ill. Continue to monitor on telemetry. (5) Tobacco use disorder, moderate, dependence: Current visit: No Status: Acute Approximate 50+-pack-year history of smoking noted. (6) Hyperlipidemia: Current visit: No Status: Acute Continue rosuvastatin. (7) Generalized anxiety disorder: Current visit: No Status: Acute Continue home regimen?patient is on SSRI therapy. (8) Gastroesophageal reflux disease: Current visit: No Status: Acute Currently on ranitidine. (9) Pulmonary nodule: Current visit: Yes Status: Acute Last CT 03/2016 with noted stable, circumscribed 5mm nodule, with recommendations for annual CT Screening. Repeat CT 10/01 with unchanged 5mm nodule, on somewhat limited view. Follow-up chronically as an outpatient. (10) DVT prophylaxis: Current visit: Yes Status: Acute Initiate SC Heparin. Subjective Interval history since last seen: 63-year-old man with past medical history significant for daily tobacco abuse, presented to [facility] Emergency Department today with complaints of feeling unwell. Mr. Roberson has a past medical history significant for generalized anxiety disorder, depression, and insomnia. He also has noted spinal stenosis in the C-spine, and suffers from GERD. Review of his prior imaging shows evidence of a pulmonary nodule. He is also a daily long-term tobacco user, with an approximate [id number] history of smoking. The patient presented to the emergency department today with complaints of subjective fevers, cough, and body aches. He was noted to be mildly hypotensive, and initially tachycardic. He also had a documented fever with a temperature of 38 ?C. Entirety of the rest of his workup was negative, including a contaminated appearing urinalysis, normal EKG, and a chest x-ray without acute abnormalities. However the patient was noted to have evidence of mild acute kidney injury with a creatinine of 1.6, and a minimal elevation in his troponin that was already downtrending prior to admission. Given the findings patient was admitted for further evaluation and treatment. Since admission the patient's troponin has normalized. However, he had remained febrile despite 3 days of treatment with Tamiflu. Given his lack of progression and his abnormal exam a CXR was obtained after admission and remained negative, prompting a CT Scan of the chest on 10/01 demonstrating infiltrates in the Right upper and middle lobes, and a question of a right basilar atelectasis vs consolidation as well. Also with noted pulmonary edema. ECHO was previously checked and essentially normal (PAP 30-40). Influenza by PCR now returned and negative. Patient was initiated on antibiotic therapy, and today reports improvement in his symptoms overall. No overnight events. Afebrile since 4pm yesterday. Exam Narrative Exam Narrative: General: Patient appears comfortable, AAOX3, NAD Neck: Supple CV: Regular, nontachycardic, S1S2, No rubs, murmurs, or gallops. Pulmonary: Improved rhonchi, continued on right base now extending to right mid lung zone. Wheezing vastly improved. Abdomen: + Bowel Sounds, soft, nontender, nondistended Vascular: No lower extremity edema Psych: Normal mood and affect. Objective Objective Clinical Data: Abnormal lab results 10/02/18 10/02/18 Range/Units 06:35 06:35 RBC 4.38 L (4.50-6.00) m/cumm Plt Count 114 L (130-400) x1000/uL MPV 12.1 H (8.0-11.0) fL Absolute Lymphocytes 0.44 L (1.2-3.4) k/cumm Glucose 143 H (70-100) mg/dL Vital Signs Temperature 37.1 C 10/02/18 10:48 Temperature Source Tympanic 10/02/18 10:48 Pulse 62 10/02/18 10:48 Pulse Rhythm Regular 10/02/18 10:30 Pulse 94 H 09/29/18 17:15 Respiratory Rate 20 10/02/18 10:48 Respiratory Effort Non-Labored 10/02/18 10:30 Respiratory Depth Normal 10/02/18 10:30 Respiratory Pattern Normal 10/02/18 10:30 Blood Pressure 128/74 10/02/18 10:48 Blood Pressure Mean 69 09/29/18 17:15 Blood Pressure Position Supine 09/29/18 11:02 Pulse Oximetry 94 L 10/02/18 10:48 Oxygen Delivery Method Room Air 10/02/18 10:48 Oxygen Flow Rate 0 10/02/18 10:48 Pain Level 2 10/01/18 07:59 Comment 09/30/18 17:45 Intake & Output 10/01/18 10/02/18 10/02/18 23:59 11:59 23:59 Intake Total 2740.0 / 3925.0 927.5 / 1902.5 975 / 1902.5 Output Total 1850 / 2350 2150 / 2150 Balance 890.0 / 1575.0 -1222.5 / -247.5 975 / -247.5 Intake: IV 2500.0 / 3445.0 437.5 / 1052.5 615 / 1052.5 Oral 240 / 480 490 / 850 360 / 850 Output: Urine 1850 / 2350 2150 / 2150 Other: Urine Color Yellow Yellow Urine Appearance Clear Clear Urine Odor Normal None Stool Size Large Stool Characteristics Formed Voiding Methods Urinal Bedpan Laboratory Results WBC 5.07 k/cumm (4.4-10.8) 10/02/18 06:35 RBC 4.38 m/cumm (4.50-6.00) L 10/02/18 06:35 Hgb 13.6 g/dL (13.5-17.5) 10/02/18 06:35 Hct 40.4 % (40.0-50.0) 10/02/18 06:35 MCV 92.2 fL (80-95) 10/02/18 06:35 MCH 31.1 pg (27.0-33.0) 10/02/18 06:35 MCHC 33.7 g/dL (32.0-36.0) 10/02/18 06:35 RDW 14.0 % (11.8-14.1) 10/02/18 06:35 Plt Count 114 x1000/uL (130-400) L 10/02/18 06:35 MPV 12.1 fL (8.0-11.0) H 10/02/18 06:35 Immature Gran % 0.2 10/02/18 06:35 Neutrophils % 87.0 10/02/18 06:35 Lymphocytes % 8.7 10/02/18 06:35 Monocytes % 4.1 10/02/18 06:35 Eosinophils % 0.0 10/02/18 06:35 Basophils % 0.0 10/02/18 06:35 Absolute Neutrophils 4.41 k/cumm (1.2-6.7) 10/02/18 06:35 Absolute Lymphocytes 0.44 k/cumm (1.2-3.4) L 10/02/18 06:35 Absolute Monocytes 0.21 k/cumm (0.11-0.7) 10/02/18 06:35 Absolute Eosinophils 0.00 k/cumm (0.0-0.7) 10/02/18 06:35 Absolute Basophils 0.00 k/cumm (0.0-0.2) 10/02/18 06:35 PT 11.0 sec (9.3-11.0) 09/29/18 11:20 INR 1.1 (0.9-1.1) 09/29/18 11:20 APTT 58.8 sec (21.0-31.4) H 09/30/18 07:15 Sodium 140 mmol/L (136-145) 10/02/18 06:35 Potassium 4.2 mmol/L (3.5-5.1) 10/02/18 06:35 Chloride 106 mmol/L (98-107) 10/02/18 06:35 Carbon Dioxide 23.6 mmol/L (21.0-32.0) 10/02/18 06:35 Anion Gap 10.4 mmol/L (3-11) 10/02/18 06:35 BUN 12 mg/dL (7-18) 10/02/18 06:35 Creatinine 1.28 mg/dL (0.70-1.30) 10/02/18 06:35 Estimated GFR/1.73 m2 56.76 (mL/min/1.73m2) 10/02/18 06:35 Glucose 143 mg/dL (70-100) H 10/02/18 06:35 Calcium 8.5 mg/dL (8.5-10.1) 10/02/18 06:35 Magnesium 1.9 mg/dL (1.8-2.4) 10/02/18 06:35 Total Bilirubin 0.4 mg/dL (0.2-1.0) 10/01/18 07:08 Conjugated Bilirubin 0.13 mg/dL (0.00-0.20) 10/01/18 07:08 AST 42 U/L (15-37) H 10/01/18 07:08 ALT 48 U/L (12-78) 10/01/18 07:08 Alkaline Phosphatase 66 U/L (46-116) 10/01/18 07:08 Troponin I 0.04 ng/mL (0.00-0.06) 09/30/18 07:15 Total Protein 6.1 g/dL (6.4-8.2) L 10/01/18 07:08 Albumin 3.0 g/dL (3.4-5.0) L 10/01/18 07:08 TSH 1.51 uIU/mL (0.358-3.74) 09/29/18 11:20 Urine Color Yellow (Yellow) 09/29/18 15:05 Urine Clarity Clear 09/29/18 15:05 Urine pH 5.5 (5-8) 09/29/18 15:05 Ur Specific [place] 1.015 (1.005-1.025) 09/29/18 15:05 Urine Protein Trace mg/dL (Negative) H 09/29/18 15:05 Urine Ketones 15 mg/dL (Negative) H 09/29/18 15:05 Urine Blood Negative (Negative) 09/29/18 15:05 Urine Nitrite Negative (Negative) 09/29/18 15:05 Urine Bilirubin Large (Negative) H 09/29/18 15:05 Urine Urobilinogen 0.2 EU/dL (Up TO 0.2) 09/29/18 15:05 Ur Leukocyte Esterase Trace (Negative) H 09/29/18 15:05 Urine RBC 3-5 (0-2) H 09/29/18 15:05 Urine WBC 5-10 HPF (0-5) 09/29/18 15:05 Ur Epithelial Cells Many HPF (Negative) 09/29/18 15:05 Urine Crystals Negative HPF (Negative) 09/29/18 15:05 Urine Bacteria Rare HPF (Negative) 09/29/18 15:05 Urine Casts Negative LPF (Negative) 09/29/18 15:05 Urine Mucus Negative (Negative) 09/29/18 15:05 Ur Culture Indicated? No/sq. contamination 09/29/18 15:05 Urine Glucose Negative mg/dL (Negative) 09/29/18 15:05 Specimen Type Nasopharengal 09/29/18 16:30 Lyme Disease Antibody Negative 09/29/18 11:20 Influenza Type A RNA Negative 09/29/18 16:30 Influenza Type B RNA Negative 09/29/18 16:30 RSV RNA Qual (PCR) Negative 09/29/18 16:30
--- NOTE | 2018-10-02 14:55 | CMPROGNOTE_ITS ---
- If Service Date Differs Date of service: 10/02/18 Time of Service: 14:54 Care Management Progress Note S/O: Alex is lying in bed when this song writer visits this morning. He states that he is doing okay and that he is feeling better today than he has. Alex continues on IV antibiotics at this time. CM reviewed DC plan which remains unchanged. A: 63 y/o male admitted 09/29/18 for URI P: Alex will return home with continued MOW once medically cleared. He will F/U with PCP and plan of care as prescribed. Alex to transport via [facility] when ready.
[2018-10-02] MEDS: Normal Saline Flush 10 ML SYR IVP ×2 (15:44→18:17)
[2018-10-02] MEDS: Heparin 5,000 UNITS/ML VIAL 5000 UNITS SC ×2 (15:45→23:39)
[2018-10-02] MEDS: ROSUVASTATIN 20 MG TAB PO (20:11)
[2018-10-02] MEDS: Amitriptyline 25 MG TAB PO (21:15)
[2018-10-03 00:23] VITALS: BP 125/70; PULSE 60; RESP 18; TEMP 36.2; O2SAT 95
[2018-10-03 03:20] VITALS: BP 108/70; PULSE 60; RESP 18; TEMP 36.5; O2SAT 95
[2018-10-03] MEDS: Metoprolol 12.5 MG TAB PO (03:26)
[2018-10-03] MEDS: Normal Saline Flush 10 ML SYR IVP (05:43)
[2018-10-03] MEDS: methylPREDNISolone SUCC 125 MG VIAL 60 MG IVP (05:43)
[2018-10-03 07:20] VITALS: BP 134/84; PULSE 54; RESP 20; TEMP 37.5; O2SAT 94
[2018-10-03 07:31] LABS: Abs Immature Grans 0.01 k/cumm (0.0-0.09); Absolute Basophil Count 0.01 k/cumm (0.0-0.2); Absolute Lymphocyte Count 0.78 k/cumm (1.2-3.4); Absolute Monocyte Count 0.61 k/cumm (0.11-0.7); Basophils % 0.1; HCT 40.7 % (40.0-50.0); HGB 13.6 g/dL (13.5-17.5); Immature Grans % 0.1; Lymphocytes % 8.9; Mean Corp. HGB Concentration 33.4 g/dL (32.0-36.0); Mean Corpuscular Hemoglobin 30.7 pg (27.0-33.0); Mean Corpuscular Volume 91.9 fL (80-95); Mean Platelet Volume 11.9 fL (8.0-11.0); Monocytes % 6.9; Platelet Count 128 x1000/uL (130-400); RBC 4.43 m/cumm (4.50-6.00); RBC Distribution Width 13.9 % (11.8-14.1); White Blood Cell Count 8.78 k/cumm (4.4-10.8)
[2018-10-03 07:33] LABS: Absolute Neutrophil Count 7.38 k/cumm (1.2-6.7)
[2018-10-03 07:42] LABS: Anion Gap 10.2 mmol/L (3-11); BUN 19 mg/dL (7-18); CO2 25.8 mmol/L (21.0-32.0); CREATININE 1.34 mg/dL (0.70-1.30); Calcium 8.8 mg/dL (8.5-10.1); Chloride 106 mmol/L (98-107); Estimated GFR 53.84 (mL/min/1.73m2); Glucose 131 mg/dL (70-100); Magnesium 2.2 mg/dL (1.8-2.4); Potassium 4.2 mmol/L (3.5-5.1); Sodium 142 mmol/L (136-145)
[2018-10-03] MEDS: Heparin 5,000 UNITS/ML VIAL 5000 UNITS SC (07:48)
[2018-10-03] MEDS: Benzonatate 200 MG CAP PO (07:49)
[2018-10-03] MEDS: FLUoxetine 20 MG CAP PO (07:49)
[2018-10-03] MEDS: Gabapentin 600 MG TAB PO (07:49)
[2018-10-03] MEDS: Aspirin 81 MG CHEW PO (07:49)
--- NOTE | 2018-10-03 09:45 | DSE_ITS ---
Date of service: 10/03/18 Time of Service: 09:33 DS: Diagnosis Discharge Diagnosis (1) Pneumonia: Status: Acute (2) EFRAÍN (acute kidney injury): Status: Acute (3) Elevated troponin: Status: Acute (4) Tobacco use disorder, moderate, dependence: Status: Acute (5) Hyperlipidemia: Status: Acute (6) Pulmonary nodule: Status: Acute Discharge Plan Disposition Patient Disposition: HOME Condition: Improving Discharge Details Reason For Visit: URI, ELEVATED TROPONIN Admit Date/Time: 09/29/18 16:04 Admit Provider: Andrez Alaniz Attending Provider: Andrez Alaniz Primary Care Provider: Carlos Nguyen [facility] Course Hospital Course: CC: Dyspnea, Fever HPI: 63-year-old man with past medical history significant for daily tobacco abuse, presented to [facility] Emergency Department today with complaints of feeling unwell. Mr. Roberson has a past medical history significant for generalized anxiety disorder, depression, and insomnia. He also has noted spinal stenosis in the C- spine, and suffers from GERD. Review of his prior imaging shows evidence of a pulmonary nodule. He is also a daily long-term tobacco user, with an approxi mate [id number] history of smoking. The patient presented to the emergency department today with complaints of subjective fevers, cough, and body aches. He was noted to be mildly hypotensive, and initially tachycardic. He also had a documented fever with a temperature of 38 ?C. Entirety of the rest of his workup was negative, including a contaminated appearing urinalysis, normal EKG, and a chest x-ray without acute abnormalities. However the patient was noted to have evidence of mild acute kidney injury with a creatinine of 1.6, and a minimal elevation in his troponin that was already downtrending prior to admission. Given the findings patient was admitted for further evaluation and treatment. Since admission the patient's troponin has normalized. However, he had remained febrile despite 3 days of treatment with Tamiflu. Given his lack of progression and his abnormal exam a CXR was obtained after admission and remained negative, prompting a CT Scan of the chest on 10/01 demonstrating infiltrates in the Right upper and middle lobes, and a question of a right basilar atelectasis vs consolidation as well. Also with noted pulmonary edema. ECHO was previously checked and essentially normal (PAP 30-40, mildly reduced RV function). Influenza by PCR now returned negative. Patient was initiated on antibiotic therapy, and has improved significantly over the last 2 days, and has now been afebrile since approximately 8pm on 10/01 - well over 24 hours ago. Hospital Course: (1) Pneumonia: Evidence of a febrile repirtatory illness accompanied by subjective body aches and myalgias, and a negative CXR X2. Initiallyl treated as potential flu, patient had not improved on Oseltamivir, and now with Influenza by PCR returning as negative. CT of the chest was checked on 10/01 and returned positive for pneumonia. Symptoms likely on basis of pneumonia. Initiated Levofloxacin. Initially also started on Vancomycin as Influenza had not returned (potential for post influenza PNA and need for MRSA coverage) - discontinued. Patient has now defervesced and remained afebrile for well over 24 hours. He is no longer hypotensive, is not tachycardic, and not hypoxic. Will be discharged with completion of antibiotics at home along with a steroid taper and prn rescue inhaler. Blood culture with no growth X48 hours, and sputum culture unrevealing. (2) EFRAÍN (acute kidney injury): Likely pre-renal in setting of acute illness and fevers. Creatinine improved and now near baseline. Will repeat a BMP in 3 days as an outpatient. (3) Elevated troponin: Minimal and equivocal elevation in troponin that quickly down trended and normalized. This is in the setting of acute illness and poor clearance due to EFRAÍN. EKG reviewed, and overall appears to be nonischemic although of poor q uality - repeat ekg this morning essentially unchanged. Patient was initiated in a heparin drip in accordance with recommendations from cardiology - discontinued. He will be continued on initiated daily aspirin low- dose beta-rain therapy, and high potency statin. ECHO performed and with no mention of wall motion abnormalities, and with mildly decreased RV function and PAP 30-40's. Suspect that this minimal troponin spill is likely due to demand ischemia, but given lengthy history of tobacco use the patient will still benefit from testing in the future. Stress to be scheduled as an outpatient. Telemetry without events. (4) Tobacco use disorder, moderate, dependence: Approximate 50+-pack-year history of smoking noted. Encourage abstinence. (5) Hyperlipidemia: Continue rosuvastatin. (6) Generalized anxiety disorder: Continue home regimen ? patient is on SSRI therapy. (7) Gastroesophageal reflux disease: Current visit: No Status: Acute Currently on ranitidine. (8) Pulmonary nodule: Last CT 03/2016 with noted stable, circumscribed 5mm nodule, with recommendations for annual CT Screening. Repeat CT 10/01 with unchanged 5mm nodule, on somewhat limited view. Follow-up chronically as an outpatient. Home Meds and New Rx's Prescriptions: New dextromethorphan-guaifenesin 10-100 mg/5 mL Syrup 10 ml PO Q6H PRN PRNQty: 1 RF: 0 aspirin 81 mg Tablet,Chewable 81 mg PO DAILY Qty: 1 RF: 0 metoprolol tartrate 25 mg Tablet 12.5 mg PO Q12H Qty: 60 RF: 0 levofloxacin 750 mg tablet 750 mg PO DAILY Qty: 5 RF: 0 prednisone 10 mg tablet 10 mg PO DAILY Qty: 31 RF: 0 Ventolin HFA 90 mcg/actuation HFA aerosol inhaler 2 puff IH Q4H PRN PRN (Reason: shortness of breath or wheezing) Qty: 18 RF: 0 Continued amitriptyline 25 mg tablet 25 mg PO HS Qty: 90 RF: 3 etodolac 400 mg tablet 400 mg PO BID Qty: 180 RF: 3 fluoxetine 20 mg capsule 20 mg PO DAILY Qty: 90 RF: 3 ranitidine HCl 150 mg capsule 150 mg PO BID Qty: 180 RF: 3 rosuvastatin [Crestor] 20 MG tablet 20 mg PO DAILY Qty: 90 RF: 4 gabapentin 600 MG tablet 600 mg PO TID 90 Days Qty: 270 RF: 3 Discharge Instructions Instructions: Community Acquired Pneumonia (DC), Community Acquired Pneumonia (GEN) Additional Instructions: Please see your doctor within 2 weeks of discharge. You have labwork to perform in 3 days. Please finish your medications, including antibiotics. You will have a stress test to perform as an outpatient. Stand Alone Forms: Nursing Discharge Form Referrals: Diagnostic Imaging [Other] - 10/17/18 12:45 pm Carlos Nguyen DO [Primary Care Provider] - 10/14/18 2:00 pm Activity:: No strenuous activity Equipment/Supplies:: No Equipment Needed Diet:: Cardiac Diet, hydrate Discharge Orders Discharge Orders: Discharge Order (Routine); Ordered 10/03/18 Ordered By: Andrez Alaniz Other Ambulatory Orders: ETT Stress Test (Outpt) (ONCE) (1) Timeframe: 2 Weeks Location: Determined by Patient Ordered By: Andrez Alaniz Basic Metabolic Panel (Routine) Timeframe: 3 Days Location: Determined by Patient Ordered By: Andrez Alaniz DS: Data Vitals/I&O Vitals and I&O: Vital Signs Temperature 37.5 C 10/03/18 07:20 Temperature Source Tympanic 10/03/18 07:20 Pulse 54 L 10/03/18 07:20 Pulse Rhythm Irregular 10/03/18 00:40 Pulse 94 H 09/29/18 17:15 Respiratory Rate 20 10/03/18 07:20 Respiratory Effort Non-Labored 10/03/18 00:40 Respiratory Depth Normal 10/03/18 00:40 Respiratory Pattern Normal 10/03/18 00:40 Blood Pressure 134/84 10/03/18 07:20 Blood Pressure Mean 69 09/29/18 17:15 Blood Pressure Position Supine 09/29/18 11:02 Pulse Oximetry 94 L 10/03/18 07:20 Oxygen Delivery Method Room Air 10/03/18 07:20 Oxygen Flow Rate 0 10/03/18 07:20 Pain Level 0 10/03/18 03:20 Comment 10/03/18 03:20 Intake & Output 10/02/18 10/02/18 10/03/18 11:59 23:59 11:59 Intake Total 927.5 / 1908.5 981 / 1908.5 350 / 350 Output Total 2150 / 2850 700 / 2850 Balance -1222.5 / -941.5 281 / -941.5 350 / 350 Intake: IV 437.5 / 1058.5 621 / 1058.5 Oral 490 / 850 360 / 850 350 / 350 Output: Urine 2150 / 2850 700 / 2850 Other: Urine Color Yellow Yellow Urine Appearance Clear Cloudy Urine Odor None Stool Size Moderate Stool Characteristics Formed Voiding Methods Bedpan Toilet Completed studies during hospitalization [Text1]: Exam(s) 09/29 a RAD:XR chest 2V PA & lateral SYMPTOM/DIAGNOSIS: COUGH, FLU AP AND LATERAL CHEST: The heart size is within normal limits. There is a question of mild scarring. No superimposed infiltrate, effusion or pulmonary edema is seen. IMPRESSION: No acute abnormality. Exam(s) 09/29 a RAD:XR chest 2V PA & lateral SYMPTOM/DIAGNOSIS: FEVER, COUGH, URI PA AND LATERAL CHEST: Comparison is made with the previous day's exam. The heart size is within normal limits. The PA view is mildly rotated. Leads overlie the chest. No infiltrate, effusion or pulmonary edema is seen. No pulmonary nodules are identified. There are mild fibrotic changes. IMPRESSION: No acute abnormality. Exam(s) a US:US echocardiogram Date of study: 09/30/2018 Transthoracic Echocardiography M-mode, complete 2D, complete spectral Doppler, and color Doppler *STUDY CONCLUSIONS* Summary: 1. Left ventricle: The cavity size was normal. Systolic function was normal. The estimated ejection fraction was 60-65%. Diastolic parameters were normal. There was no evidence of elevated ventricular filling pressure by Doppler parameters. 2. Aortic valve: There was mild regurgitation. 3. Mitral valve: There was mild regurgitation. 4. Right ventricle: The cavity size was normal. Systolic function was mildly reduced. 5. Atrial septum: No defect or patent foramen ovale was identified. 6. Pulmonary arteries: Pulmonary systolic pressure was in the range of 30mm Hg to 40mm Hg. 7. Inferior vena cava: The vessel was patent and normal in size. The respirophasic diameter changes were in the normal range (greater than or equal to 50%), consistent with normal central venous pressure. Exam(s) a CT:CT chest wo SYMPTOM/DIAGNOSIS: WORSENING COUGH. rULE OUT PNEUMONIA NONCONTRAST CHEST CT: Comparison with [address] and chest x-ray of 30 Sep 2018 There are tiny bilateral pleural effusions. There are ground glass opacities seen in the right upper lobe greatest anteriorly. There are also some other patchy areas seen in the right middle as well as right lower lobe. There is respiratory motion at the lung bases. There is a focal area of atelectasis vs consolidation at the posterior right lung base. There are underlying changes of central lobular emphysema greatest in the upper lobes. There is some intralobular septal thickening greatest at the lung bases which could indicate an element of pulmonary edema. A 5 mm nodule at the left lung base is unchanged but barely visible due to respiratory motion. There is left ventricular enlargement. There is mild calcification at the aorta. There are small mediastinal lymph nodes which have increased in size compared to the previous exam, presumably reactive. Severe fatty infiltration and liver cysts are again noted. The gallbladder and upper portions of the spleen, pancreas and right kidney are unremarkable. The left kidney again appears atrophic. IMPRESSION: Right upper and middle lobe infiltrates, Question of a right basilar atelectasis vs consolidation. Tiny bilateral pleural effusions and pulmonary edema. Labs on day of discharge: Labs from last 24 hours 10/03/18 10/03/18 07:02 07:02 WBC 8.78 D RBC 4.43 L Hgb 13.6 Hct 40.7 MCV 91.9 MCH 30.7 MCHC 33.4 RDW 13.9 Plt Count 128 L MPV 11.9 H Immature Gran % 0.1 Neutrophils % 84.0 Lymphocytes % 8.9 Monocytes % 6.9 Eosinophils % 0.0 Basophils % 0.1 Absolute Neutrophils 7.38 H Absolute Lymphocytes 0.78 L Absolute Monocytes 0.61 Absolute Eosinophils 0.00 Absolute Basophils 0.01 Sodium 142 Potassium 4.2 Chloride 106 Carbon Dioxide 25.8 Anion Gap 10.2 BUN 19 H D Creatinine 1.34 H Estimated GFR/1.73 m2 53.84 Glucose 131 H Calcium 8.8 Magnesium 2.2 Preliminary micro results at discharge 09/30/18 17:46 Blood Culture - Preliminary Blood NO GROWTH 48 HOURS 09/30/18 17:46 Blood Culture - Preliminary Blood NO GROWTH 48 HOURS 09/29/18 12:38 Blood Culture - Preliminary Blood NO GROWTH 72 HOURS 09/29/18 12:32 Blood Culture - Preliminary Blood NO GROWTH 72 HOURS [facility] Family History Mother Diabetes Essential hypertension Stroke Father No problems noted. Sister No problems noted. Sister No problems noted. Brother No problems noted. Brother No problems noted. Brother No problems noted. Brother Essential hypertension Brother No problems noted. Social History adopted: No foster care: No housing: apartment lives independently: Yes number of children: 1 current occupational status: disabled Smoking/Tobacco Use Status: Current every day alcohol intake: former substance use type: does not use additional social history: Patient is , with one daughter. He is a grandfather of 4. He has a 50 approximate pack-year history of smoking, but denies alcohol use.
--- NOTE | 2018-10-03 10:49 | PDOC.HHF2F ---
1. Encounter Date and Reason I certify that LEIA PAYNE was seen by Andrez Alaniz on 10/03/18 and that I had a [id number] encounter with this patient that meets the physician face to face encounter requirements. 2. Clinical Findings Supporting Skilled Need and Homebound Status I certify that home health services are medically necessary, include either intermittent [place] [facility] and/or physical/speech therapy, and that this patient is homebound in that absences from the home require considerable and taxing effort and are infrequent or of short duration, or are attributable to the need to receive medical care. [X] (a) Attached documentation from encounter provides clinical findings supporting skilled need and homebound status (including what assistance patient requires to leave the home). The encounter with the patient was in whole, or in part, for the following medical condition, which is the primary reason for home health care: URI, ELEVATED TROPONIN Correction: Pneumonia, medication management, new inhaler use Physical Therapy: Speech Therapy: Homebound: 3. Certification and Authentication I certify that I composed the above information based on my clinical judgement relating to this patient's medical condition and, if applicable, clinical findings communicated to me by the NPP or inpatient physician who performed the Home Health Referral. All further orders will be obtained through (Community Based Physician - PCP)
[2018-10-03 12:12] VITALS: BP 125/70; PULSE 58; RESP 20; TEMP 36.7; O2SAT 94
--- NOTE | 2018-10-03 13:30 | PDOC.CMDIS ---
- If Service Date Differs Date of service: 10/03/18 Time of Service: 13:30 LACE Index Scoring Tool - Questions: Length of Stay (in days): 4 - 6 Acuity (Admit via E.D.?): Yes E.D. Visits: 2 - Answers: Total Score: 9 Risk of Readmission: Low Risk Care Management Discharge Reason for Hospitalization: URI, Elevated Troponin Discharge Plan: Alex is being discharged home today he will have new home health services for nursing. Alex is nervous about returning home and being alone. CM identified that Home health nursing may be supportive duing his transition. Face to face was completed and faxed. CM contacted [facility] pharmacy and reviewed medications and requested community connections discuss the copay with the pharmacy. Patient states he will not apple picker hie medication today even with the copay paid. He states it is to cold and he refuses to go to the pharmacy with no money. CM explained to the patient he will not be denied his medicaitons when he arrives. Alex is willing to go to the pharmacy on Sunday and obtain his medications. He will be given a dose of antibioitcs prior to discharged today. RCT coordianted by CM for time of discharge. Patient/Family Education Needs: Discharge education, limitations, medicaitons and plan of care. Services Needed at Discharge: Home Health Care Services, Transportation
[2018-10-03 13:40] LABS: Anaplasma phagocytophilum Negative (Negative); B. miyamotoi PCR Negative (Negative); Babesia divergens/MO-1 Negative (Negative); Babesia duncani Negative (Negative); Babesia microti Negative (Negative); Ehrlichia chaffeensis Negative (Negative); Ehrlichia ewingii/canis Negative (Negative); Ehrlichia muris eauclairensis Negative (Negative)
--- NOTE | 2018-10-03 13:59 | CMDISCH_ITS ---
- If Service Date Differs Date of service: 10/03/18 Time of Service: 13:30 LACE Index Scoring Tool - Questions: Length of Stay (in days): 4 - 6 Acuity (Admit via E.D.?): Yes E.D. Visits: 2 - Answers: Total Score: 9 Risk of Readmission: Low Risk Care Management Discharge Reason for Hospitalization: URI, Elevated Troponin Discharge Plan: Alex is being discharged home today he will have new home health services for nursing. Alex is nervous about returning home and being alone. CM identified that Home health nursing may be supportive duing his transition. Face to face was completed and faxed. CM contacted [facility] pharmacy and reviewed medications and requested community connections discuss the copay with the pharmacy. Patient states he will not meat pickler hie medication today even with the copay paid. He states it is to cold and he refuses to go to the pharmacy with no money. CM explained to the patient he will not be denied his medicaitons when he arrives. Alex is willing to go to the pharmacy on Sunday and obtain his medications. He will be given a dose of antibioitcs prior to discharged today. RCT coordianted by CM for time of discharge. Patient/Family Education Needs: Discharge education, limitations, medicaitons and plan of care. Services Needed at Discharge: Home Health Care Services, Transportation
[2018-10-03] MEDS: LEVOFLOXACIN 500 MG, LEVOFLOXACIN 250 MG 750 MG PO (14:06)
== END 2018-10-03 14:08 | disposition home or self-care (01) | DRG 193 ==
LOC: ER 16:26 → MS 17:29
PROVIDERS: Admitting Provider Internal Medicine; Emergency Provider Physician Assistant; PCP Family Medicine; Visit Provider Internal Medicine
DX: J18.9 Pneumonia, unspecified organism (principal); J81.0 Acute pulmonary edema; N17.9 Acute kidney failure, unspecified; M79.10 Myalgia, unspecified site; I24.8 Other forms of acute ischemic heart disease; I95.9 Hypotension, unspecified; R77.8 Other specified abnormalities of plasma proteins; R50.9 Fever, unspecified; F17.210 Nicotine dependence, cigarettes, uncomplicated; R00.0 Tachycardia, unspecified; E78.5 Hyperlipidemia, unspecified; R91.1 Solitary pulmonary nodule; K21.9 Gastro-esophageal reflux disease without esophagitis; F41.8 Other specified anxiety disorders; M48.02 Spinal stenosis, cervical region
CPT/HCPCS: 36410; 36415; 71250; 80048; 80053; 80076; 87040; 87449; 87631; 93005; 93306; 96361; 96365; 96366; 99223; 99232; 99233; 99239; 99285; 71046; 81003; 81015; 83735; 84443; 84484; 85025; 85610; 85730; 86618; 87070; 87205; 87798; 93010; 94640; J1644; J1956; J2543; J2930; J3490; J7620

== ENCOUNTER 2018-10-15 11:06 | Emergency (ER) | payer MEDICARE, MEDICAID, SELFPAY ==
[2018-10-15 11:18] VITALS: BP 132/84; PULSE 92; RESP 20; TEMP 36.6; O2SAT 100
--- NOTE | 2018-10-15 11:37 | DI.RAD_ITS ---
SYMPTOM/DIAGNOSIS: LT HIP PAIN LEFT HIP AND PELVIS: Three views. No acute bone or joint abnormality is identified. The soft tissues are unremarkable. IMPRESSION: Negative examination.
--- NOTE | 2018-10-15 11:40 | ED.GENADUL_ITS ---
Discharge Plan Disposition Patient Disposition: HOME Condition: Improving Discharge Details Chief Complaint: Orthopedic Clinical Impression: Left hip pain Primary Care Provider: Carlos Nguyen ED Provider: Normna Farley Home Meds and New Rx's Prescriptions: Continued amitriptyline 25 mg tablet 25 mg PO HS Qty: 90 RF: 3 etodolac 400 mg tablet 400 mg PO BID Qty: 180 RF: 3 fluoxetine 20 mg capsule 20 mg PO DAILY Qty: 90 RF: 3 ranitidine HCl 150 mg capsule 150 mg PO BID Qty: 180 RF: 3 rosuvastatin [Crestor] 20 MG tablet 20 mg PO DAILY Qty: 90 RF: 4 gabapentin 600 MG tablet 600 mg PO TID 90 Days Qty: 270 RF: 3 dextromethorphan-guaifenesin 10-100 mg/5 mL Syrup 10 ml PO Q6H PRN PRNQty: 1 RF: 0 aspirin 81 mg Tablet,Chewable 81 mg PO DAILY Qty: 1 RF: 0 metoprolol tartrate 25 mg Tablet 12.5 mg PO Q12H Qty: 60 RF: 0 prednisone 10 mg tablet 10 mg PO DAILY Qty: 31 RF: 0 Ventolin HFA 90 mcg/actuation HFA aerosol inhaler 2 puff IH Q4H PRN PRN (Reason: shortness of breath or wheezing) Qty: 18 RF: 0 Discharge Instructions Instructions: Leg Pain (ED) Additional Instructions: Follow-up Dr. Perry Nguyen in clinic for recheck. Remove the Lidoderm patch in 12 hours Continue all of your regular medications. May apply ice to reduce discomfort as well. Medical Decision Making 63-year-old male with atraumatic left hip pain times 2-day. Ambulatory, denies inciting injury. He is afebrile and well-appearing. Some pain with palpation and rotation of the hip. X-ray obtained with no acute fracture. He has history of acid arthritis and likely has a flare of same. Do not appreciate evidence of gout or infection. Lidocaine patch provided to patient. He will continue his medications including NSAID. He will follow-up with primary care for recheck. He is stable for discharge to home. HPI General Mode of arrival: ambulatory . Date/Time Provider Initiated Documentation: 10/15/18 11:12 . Limitations to Documentation: no limitations . Information obtained by: patient . History of Present Illness 63 year old M presents to the emergency department with the chief complaint of Left hip pain times 2 days, atraumatic, history of arthritis, described as moderate, Quality is described as aching, and is localized to the left and lower extremity. Patient reports no radiation. Patient started experiencing this day(s) and it has been constant. Rest improves symptom(s), Movement worsens symptoms . Patient notes no other symptoms.; denies fever/chills and rash. Patient did receive the following treatments prior to arrival, none Related Data Home Medications Medication Instructions Recorded Confirmed rosuvastatin [Crestor] 20 mg PO DAILY #90 tab 02/11/18 10/15/18 gabapentin 600 mg PO TID 90 Days #270 tab-cap 03/29/18 10/15/18 amitriptyline 25 mg tablet 25 mg PO HS #90 tab-cap 08/20/18 10/15/18 etodolac 400 mg tablet 400 mg PO BID #180 tab-cap 08/20/18 10/15/18 fluoxetine 20 mg capsule 20 mg PO DAILY #90 cap 08/20/18 10/15/18 ranitidine 150 mg capsule 150 mg PO BID #180 tab-cap 18 10/15/18 Ventolin HFA 2 puff IH Q4H PRN PRN #18 gm 10/03/18 10/15/18 aspirin 81 mg PO DAILY #1 tab 10/03/18 10/15/18 dextromethorphan-guaifenesin 10 ml PO Q6H PRN PRN #1 ml 10/03/18 10/15/18 metoprolol tartrate 12.5 mg PO Q12H #60 tab 10/03/18 10/15/18 prednisone 10 mg PO DAILY #31 tab 10/03/18 10/15/18 Previous Rx's Medication Instructions Recorded rosuvastatin [Crestor] 20 mg PO DAILY #90 tab 02/11/18 gabapentin 600 mg PO TID 90 Days #270 tab-cap 03/29/18 amitriptyline 25 mg tablet 25 mg PO HS #90 tab-cap 08/20/18 etodolac 400 mg tablet 400 mg PO BID #180 tab-cap 08/20/18 fluoxetine 20 mg capsule 20 mg PO DAILY #90 cap 08/20/18 ranitidine 150 mg capsule 150 mg PO BID #180 tab-cap 08/20/18 Ventolin HFA 2 puff IH Q4H PRN PRN #18 gm 10/03/18 aspirin 81 mg PO DAILY #1 tab 10/03/18 dextromethorphan-guaifenesin 10 ml PO Q6H PRN PRN #1 ml 10/03/18 metoprolol tartrate 12.5 mg PO Q12H #60 tab 10/03/18 prednisone 10 mg PO DAILY #31 tab 10/03/18 Allergies Allergy/AdvReac Type Severity Reaction Status Date / Time tetanus and diphtheria AdvReac Intermediate severe Unverified 10/15/18 11:20 toxoids muscle pain x 2 weeks after injection on 09/2012 General Stated Complaint: Orthopedic SORAYA: 3 Review of Systems Review of Systems Cough has improved since admission. Normal diet. 8 systems reviewed and otherwise negative [facility] Family History Mother Diabetes Essential hypertension Stroke Father No problems noted. Sister No problems noted. Sister No problems noted. Brother No problems noted. Brother No problems noted. Brother No problems noted. Brother Essential hypertension Brother No problems noted. Social History adopted: No foster care: No housing: apartment lives independently: Yes number of children: 1 highest education level completed: 9th grade current occupational status: disabled Smoking and Tabacco status: Current every day alcohol intake: former substance use type: does not use additional social history: Patient is , with one daughter. He is a grandfather of 4. He has a 50 approximate pack-year history of smoking, but denies alcohol use. Exam Narrative Exam Narrative: GEN: awake, alert, oriented 3. Pleasant, well groomed, interactive. HEAD: Normocephalic, atraumatic ENT: Mucous membranes moist, oropharynx unremarkable, External ear exam unremarkable EYES: PERRL, EOMI NECK: Full ROM, no LUPE, no menigismus CHEST/RESP: Nontender, clear to auscultation bilateral, no wheeze/rhonchi/rales CARDIOVASCULAR: RRR, no murmur, rub rajat. 2+ Rad pulse bilateral ABDOMEN: Soft, nontender, no mass. +Bowel sounds EXT: Full ROM, no edema, no rash. Patient has a slightly antalgic gait. He is 5 out of 5 motor, sensory intact throughout, 1+ patellar reflex bilaterally Neuro: Grossly normal neurologic exam, conversant, interactive. Psych: Speech fluent, thoughts congruent, affect normal Course Vital Signs Temperature 36.6 C 10/15/18 11:18 Pulse 92 H 10/15/18 11:18 Respiratory Rate 20 10/15/18 11:18 Blood Pressure 132/84 10/15/18 11:18 Pulse Oximetry 100 10/15/18 11:18 Temperature 36.6 C 10/15/18 11:18 Temperature Source Temporal Artery Scan 10/15/18 11:18 Pulse 92 H 10/15/18 11:18 Respiratory Rate 20 10/15/18 11:18 Respiratory Effort Non-Labored 10/15/18 11:18 Blood Pressure 132/84 10/15/18 11:18 Pulse Oximetry 100 10/15/18 11:18 Oxygen Delivery Method Room Air 10/15/18 11:18 Oxygen Flow Rate 0 10/15/18 11:18 Pain Level 8 10/15/18 11:21
[2018-10-15 12:26] VITALS: BP 132/84; PULSE 92; RESP 20; TEMP 36.6; O2SAT 100
[2018-10-15] MEDS: Lidocaine 5% Patch 1 PATCH TP (12:26)
--- NOTE | 2018-10-15 12:26 | PDOC.ERCMPRO ---
Care Management Progress Note 10/15-Dr. Farley requested assistance with information on quitting smoking. Met with Alex. Discussed smoking and gave information brochure on [id number]. Alex was very clear with this CM, I am not interested in quitting at this time. Alex has this CM's contact information if further assistance is needed.
== END 2018-10-15 12:28 | disposition home or self-care (01) ==
PROVIDERS: Emergency Provider Emergency Medicine; PCP Family Medicine
DX: M25.552 Pain in left hip (principal); I10 Essential (primary) hypertension
CPT/HCPCS: 99283; 73502

== ENCOUNTER 2018-10-26 18:01 | Emergency (ER) | payer MEDICARE, MEDICAID, SELFPAY ==
[2018-10-26 18:03] VITALS: BP 144/77; PULSE 99; RESP 16; TEMP 36.7; O2SAT 97
--- NOTE | 2018-10-26 18:13 | DI.RAD_ITS ---
SYMPTOM/DIAGNOSIS: COUGH, BACK PAIN, ? PNEUMONIA PA AND LATERAL CHEST: Comparison is made with 09/30/18. The heart size is normal. The aorta is normal in diameter. The lungs are well inflated and clear. No infiltrate or effusion is seen. There is no evidence of thoracic compression fracture or pneumothorax. IMPRESSION: Negative chest xray.
--- NOTE | 2018-10-26 18:16 | W.ED.GENAD ---
Discharge Plan Disposition Patient Disposition: HOME Condition: Improving Discharge Details Chief Complaint: Nk/Back Pain Clinical Impression: Back pain, Cough, Heavy tobacco smoker Reason For Visit: CITLALLI Primary Care Provider: Carlos Nguyen ED Provider: Shyla Elias Home Meds and New Rx's Prescriptions: New benzonatate [Tessalon Perles] 100 mg capsule 100 mg PO TID PRN (Reason: cough) Qty: 10 RF: 0 Continued amitriptyline 25 mg tablet 25 mg PO HS Qty: 90 RF: 3 etodolac 400 mg tablet 400 mg PO BID Qty: 180 RF: 3 fluoxetine 20 mg capsule 20 mg PO DAILY Qty: 90 RF: 3 ranitidine HCl 150 mg capsule 150 mg PO BID Qty: 180 RF: 3 rosuvastatin [Crestor] 20 MG tablet 20 mg PO DAILY Qty: 90 RF: 4 gabapentin 600 MG tablet 600 mg PO TID 90 Days Qty: 270 RF: 3 dextromethorphan-guaifenesin 10-100 mg/5 mL Syrup 10 ml PO Q6H PRN PRNQty: 1 RF: 0 aspirin 81 mg Tablet,Chewable 81 mg PO DAILY Qty: 1 RF: 0 metoprolol tartrate 25 mg Tablet 12.5 mg PO Q12H Qty: 60 RF: 0 Ventolin HFA 90 mcg/actuation HFA aerosol inhaler 2 puff IH Q4H PRN PRN (Reason: shortness of breath or wheezing) Qty: 18 RF: 0 Discharge Instructions Instructions: Back Pain (ED), Acute Cough (ED) Additional Instructions: Use your albuterol inhaler as needed and directed. Take the cough medicine as needed and directed. Alternate Tylenol and Motrin as needed and directed for pain. Follow-up with your primary care doctor in 1 week for reevaluation. Return immediately to the emergency department any worsening or new concerning symptoms. Discharge Data Discharge Physician: Shyla Elias Medical Decision Making 63-year-old male who is a tobacco smoker who presents for cough with white sputum and back pain for the past 4 days. States back pain is worse with movement. No cauda equina symptoms. No fever. Recently treated for influenza 4 weeks ago. He denies chest pain or shortness of breath. Vitals within normal limits. Afebrile. Patient appears nontoxic and in no acute distress. He ambulated from the ambulance back to the room. Lungs clear to auscultation. Normal ENT exam. He has midline tenderness extending along thoracic spine. No fever, evidence of trauma, infection, abscess or rash. Differential diagnosis includes muscle strain, osteoarthritis, pneumonia. No complaint of chest pain, shortness of breath with normal respiratory rate and oxygen saturation. Wells score low. No DVT/PE risk factors. Will obtain a chest x-ray with full view of the thoracic spine. Will give a dose of Toradol IM and reassess. 194 --chest x-ray is negative for acute findings, T-spine unremarkable. Patient states he feels better after Toradol and feels good to go home. As pain is worse with movement and tender to palpation, may be more likely musculoskeletal/osteoarthritis. Will send home with Migue Roberson for chronic cough. No evidence of pneumonia, so we will hold on antibiotics as he has no complaint of chest pain or shortness of breath. Instructed to alternate Tylenol and Motrin as needed for pain. Instructed to have the primary care doctor for reevaluation and return here at any time if worse. Medical Records Medical records reviewed: Yes I reviewed the patient's medical records. Imaging Data Radiologic Study: Radiologist's impression: XR Chest, 2 Views EXAM DATE/TIME: 10/26/2018 6:16 PM FINDINGS: Lungs: Emphysematous changes. No evidence of pneumonia, pulmonary vascular congestion, or pulmonary edema. Pleural space: No pneumothorax. No sizable pleural effusion. Heart/Mediastinum: No cardiomegaly. Bones/joints: Unremarkable. IMPRESSION: Emphysematous changes. No evidence of pneumonia, pulmonary vascular congestion, or pulmonary edema. HPI General Mode of arrival: ambulatory. Date/Time Provider Initiated Documentation: 10/26/18 18:13. Limitations to Documentation: no limitations. Information obtained by: patient. HPI Narrative: Patient is a 63-year-old male who presents with cough with white sputum and back pain for the past 4 days. States his back pain extends from his midline upper to mid thoracic spine and is worse with movement. He states he has been eating and drinking less than usual due to his cough. He denies any known fever, chest pain, shortness of breath, sore throat, ear pain, upper extremity or lower extremity weakness or numbness, saddle anesthesia, urinary or fecal incontinence or abdominal pain. Patient states he was diagnosed and treated for the flu 4 weeks ago. Related Data Home Medications Medication Instructions Recorded Confirmed rosuvastatin [Crestor] 20 mg PO DAILY #90 tab 02/11/18 10/26/18 gabapentin 600 mg PO TID 90 Days #270 tab-cap 03/29/18 10/26/18 amitriptyline 25 mg tablet 25 mg PO HS #90 tab-cap 08/20/18 10/18/18 etodolac 400 mg tablet 400 mg PO BID #180 tab-cap 08/20/18 10/26/18 fluoxetine 20 mg capsule 20 mg PO DAILY #90 cap 08/20/18 10/26/18 ranitidine 150 mg capsule 150 mg PO BID #180 tab-cap 08/20/18 10/26/18 Ventolin HFA 2 puff IH Q4H PRN PRN #18 gm 10/03/18 10/18/18 aspirin 81 mg PO DAILY #1 tab 10/03/18 10/26/18 dextromethorphan-guaifenesin 10 ml PO Q6H PRN PRN #1 ml 10/03/18 10/26/18 metoprolol tartrate 12.5 mg PO Q12H #60 tab 10/03/18 10/26/18 benzonatate [Tessalon Perles] 100 mg PO TID PRN #10 cap 10/26/18 Previous Rx's Medication Instructions Recorded rosuvastatin [Crestor] 20 mg PO DAILY #90 tab 02/11/18 gabapentin 600 mg PO TID 90 Days #270 tab-cap 03/29/18 amitriptyline 25 mg tablet 25 mg PO HS #90 tab-cap 08/20/18 etodolac 400 mg tablet 400 mg PO BID #180 tab-cap 08/20/18 fluoxetine 20 mg capsule 20 mg PO DAILY #90 cap 08/20/18 ranitidine 150 mg capsule 150 mg PO BID #180 tab-cap 08/20/18 Ventolin HFA 2 puff IH Q4H PRN PRN #18 gm 10/03/18 aspirin 81 mg PO DAILY #1 tab 10/03/18 dextromethorphan-guaifenesin 10 ml PO Q6H PRN PRN #1 ml 10/03/18 metoprolol tartrate 12.5 mg PO Q12H #60 tab 10/03/18 benzonatate [Tessalon Perles] 100 mg PO TID PRN #10 cap 10/26/18 Allergies Allergy/AdvReac Type Severity Reaction Status Date / Time tetanus and diphtheria AdvReac Intermediate severe Verified 10/26/18 18:11 toxoids muscle pain x 2 weeks after injection on 09/2012 General Stated Complaint: Nk/Back Pain SORAYA: 3 Review of Systems Review of Systems All systems reviewed & are unremarkable except as noted in HPI and below Constitutional Reports as per HPI, Denies chills and Denies fever(s) Eyes Denies blurry vision ENT Denies dizziness, Denies sore throat and Denies throat swelling Cardiovascular Denies chest pain and Denies dyspnea Respiratory Reports cough and Denies dyspnea Gastrointestinal Denies abdominal pain, Denies diarrhea and Denies vomiting Genitourinary Denies hematuria and Denies dysuria Musculoskeletal Reports back pain and Denies numbness Integumentary/Breasts Denies lesions and Denies rash Neurologic Denies dizziness, Denies focal weakness and Denies numbness Allergic/Immunologic Denies throat swelling [facility] Medical History Pulmonary nodule (Chronic) Tobacco use disorder, moderate, dependence (Chronic 09/23/05) Spinal stenosis in cervical region (Chronic 01/01/90) 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 Sister No problems noted. Sister No problems noted. Brother No problems noted. Brother No problems noted. Brother No problems noted. Brother Essential hypertension Brother No problems noted. Social History adopted: No foster care: No housing: apartment lives independently: Yes number of children: 1 highest education level completed: 9th grade current occupational status: disabled Smoking and Tabacco status: Current every day alcohol intake: former substance use type: does not use additional social history: Patient is , with one daughter. He is a grandfather of 4. He has a 50 approximate pack-year history of smoking, but denies alcohol use. Exam Const General: cooperative and healthy appearing Orientation: alert and awake HENMT Head: normal to inspection Ears: hearing grossly normal bilaterally, external ears normal and TM's normal bilaterally General nose exam: external nose normal Face and sinus: normal facial exam Mouth: oral mucosae normal Teeth and gingiva: dentition normal Throat: posterior oropharynx normal Eyes General: appearance normal, both eyes and all related structures Eyelids: eyelids normal Pupils: PERRL EOM: EOM intact bilaterally Neck Neck: normal visual inspection Lymphatic: no lymphadenopathy noted Chest Chest: normal inspection of the chest Resp Effort & Inspection: normal respiratory effort and able to speak in complete sentences Auscultation: clear to auscultation bilaterally Cardio Rate: regular rate Rhythm: regular rhythm GI Inspection: normal to inspection Palpation: soft, not firm, no guarding, no hepatosplenomegaly, no masses and nontender Auscultation: normal bowel sounds Back/Spine/Pelvis Cervical Spine: No cervical muscular tenderness and No cervical spinal tenderness Thoracic/Lumbar Spine: paraspinal tenderness, thoracic spinal tenderness and No lumbar spinal tenderness Skin General skin exam: no rashes or lesions noted Neuro General: alert and awake Cognition: normal cognition Speech: speech normal Gait: normal gait Motor: muscle tone normal throughout and strength 5/5 throughout Sensory Exam: no sensory deficits noted DTR's: Rt Patellar: 2+, Lt Patellar: 2+, Rt Ankle: 2+ and Lt Ankle: 2+ Plantar Reflexes: Equivocal: bilateral Extrem General: normal to inspection and full ROM Psych Appearance: grossly normal Mental Status: mental status grossly normal Speech and Movement: speech and movement normal Affect: normal affect Thought Process: normal Course Vital Signs Temperature 98.1 F 10/26/18 18:03 Pulse 99 H 10/26/18 18:03 Respiratory Rate 16 10/26/18 18:03 Blood Pressure 144/77 H 10/26/18 18:03 Pulse Oximetry 97 10/26/18 18:03 Temperature 98.1 F 10/26/18 18:03 Temperature Source Skin 10/26/18 18:03 Pulse 99 H 10/26/18 18:03 Respiratory Rate 16 10/26/18 18:03 Respiratory Effort Non-Labored 10/26/18 18:08 Blood Pressure 144/77 H 10/26/18 18:03 Pulse Oximetry 97 10/26/18 18:03 Pain Level 8 10/26/18 18:03
[2018-10-26] MEDS: Ketorolac 60 MG/2 ML VIAL IM (18:19)
--- NOTE | 2018-10-26 19:09 | DI.VRAD_ITS ---
EXAM: XR Chest, 2 Views EXAM DATE/TIME: 10/26/2018 6:16 PM CLINICAL HISTORY: 63 years old, male; Signs and symptoms; Cough and other: Back pain; R/O pneumonia; Additional info: tender along t spine; R/O acute process TECHNIQUE: XR of the chest, 2 views. COMPARISON: CR XR CHEST 2V PA LATERAL 09/30/2018 11:45 AM FINDINGS: Lungs: Emphysematous changes. No evidence of pneumonia, pulmonary vascular congestion, or pulmonary edema. Pleural space: No pneumothorax. No sizable pleural effusion. Heart/Mediastinum: No cardiomegaly. Bones/joints: Unremarkable. IMPRESSION: Emphysematous changes. No evidence of pneumonia, pulmonary vascular congestion, or pulmonary edema. Dictated and Authenticated by: Ervin Espinoza MD. Ordering:TOBI Mansfield MD
[2018-10-26 20:02] VITALS: BP 112/45; PULSE 92; RESP 16; TEMP 37.1; O2SAT 95
[2018-10-26] MEDS: Albuterol HFA 8 GM 60 PUFF INH IH (20:11)
== END 2018-10-26 20:16 | disposition home or self-care (01) ==
PROVIDERS: Emergency Provider Physician Assistant; PCP Family Medicine
DX: M54.9 Dorsalgia, unspecified (principal); R05 Cough; F17.210 Nicotine dependence, cigarettes, uncomplicated
CPT/HCPCS: 96372; 99284; 71046; J1885

== ENCOUNTER 2018-12-18 21:05 | Emergency (ER) | payer MEDICARE, MEDICAID, SELFPAY ==
[2018-12-18 21:07] VITALS: BP 122/95; PULSE 86; RESP 16; TEMP 37.2; O2SAT 98
--- NOTE | 2018-12-18 21:07 | W.ED.GENAD ---
Discharge Plan Disposition Patient Disposition: HOME Condition: Good Discharge Details Chief Complaint: GenMedical Clinical Impression: Encounter for medical screening examination Primary Care Provider: Carlos Nguyen ED Provider: Rudolph Andrew [place] Meds and New Rx's Prescriptions: Continued amitriptyline 25 mg tablet 25 mg PO HS Qty: 90 RF: 3 fluoxetine 20 mg capsule 20 mg PO DAILY Qty: 90 RF: 3 ranitidine HCl 150 mg capsule 150 mg PO BID Qty: 180 RF: 3 rosuvastatin [Crestor] 20 MG tablet 20 mg PO DAILY Qty: 90 RF: 4 gabapentin 600 MG tablet 600 mg PO TID 90 Days Qty: 270 RF: 3 etodolac 400 mg tablet 400 mg PO BID Qty: 180 RF: 3 metoprolol tartrate 25 mg Tablet 12.5 mg PO Q12H Qty: 60 RF: 0 Discharge Instructions Additional Instructions: Your exam and your vital signs are normal. Please follow up with your primary care doctor. Return to the ED for severe headache, fever, chest pain, shortness of breath, abdominal pain, vomiting, fainting, neurological changes/confusion. Referrals: Carlos Nguyen DO [Primary Care Provider] - Discharge Data Discharge Date/Time-TO BE ENTERED AT DEPARTURE: 12/18/18 21:38 Medical Decision Making Patient has no specific complaint. His review of system is completely negative other than feeling strange and cough which is chronic. Orthostatics are normal. Lungs are clear. Saturations normal. Neurologically intact. Benign abdomen. No complaint of pain anywhere. No complaint of chest heaviness, tightness, squeezing, pain. Given normal vital signs without orthostasis and normal physical exam without a specific complaint patient is cleared for discharge and follow-up with primary care with instructions to return if he develops any worrisome symptoms. HPI General Mode of arrival: EMS. Date/Time Provider Initiated Documentation: 12/18/18 21:05. Limitations to Documentation: no limitations. Information obtained by: patient and RN notes reviewed. HPI Narrative: Patient here by ambulance because he feels strange. He is not able to elaborate on that. He just states that he feels strange tonight. He denies having a headache, fever, chest pain, shortness of breath, abdominal pain, vomiting, confusion, numbness or weakness. He does report a cough but is a smoker and does not report any change in his cough. He does not drink alcohol. He has been eating and drinking today without difficulty. She can offer no specifics for me. Related Data Home Medications Medication Instructions Recorded Confirmed rosuvastatin [Crestor] 20 mg PO DAILY #90 tab 02/11/18 12/18/18 gabapentin 600 mg PO TID 90 Days #270 tab-cap 03/29/18 12/18/18 amitriptyline 25 mg tablet 25 mg PO HS #90 tab-cap 08/20/18 12/18/18 fluoxetine 20 mg capsule 20 mg PO DAILY #90 cap 08/20/18 12/18/18 ranitidine 150 mg capsule 150 mg PO BID #180 tab-cap 08/20/18 12/18/18 metoprolol tartrate 12.5 mg PO Q12H #60 tab 10/03/18 12/18/18 etodolac 400 mg tablet 400 mg PO BID #180 tab-cap 12/09/18 12/18/18 Previous Rx's Medication Instructions Recorded rosuvastatin [Crestor] 20 mg PO DAILY #90 tab 02/11/18 gabapentin 600 mg PO TID 90 Days #270 tab-cap 03/29/18 amitriptyline 25 mg tablet 25 mg PO HS #90 tab-cap 08/20/18 fluoxetine 20 mg capsule 20 mg PO DAILY #90 cap 08/20/18 ranitidine 150 mg capsule 150 mg PO BID #180 tab-cap 08/20/18 metoprolol tartrate 12.5 mg PO Q12H #60 tab 10/03/18 etodolac 400 mg tablet 400 mg PO BID #180 tab-cap 12/09/18 Allergies Allergy/AdvReac Type Severity Reaction Status Date / Time tetanus and diphtheria AdvReac Intermediate severe Verified 12/18/18 21:11 toxoids muscle pain x 2 weeks after injection on 09/2012 General SORAYA: 3 Review of Systems Review of Systems 06/16 Review of Systems completed and is negative except as stated above in HPI (Systems reviewed: Const, Eyes, ENT, Resp, CV, GI, , MSK, Skin, Neuro) [facility] Medical History Pulmonary nodule (Chronic) Tobacco use disorder, moderate, dependence (Chronic 09/23/05) Spinal stenosis in cervical region (Chronic 01/01/90) Other speech disturbance (Chronic 09/04/59) Migraine without aura and without status migrainosus, not intractable (Chronic 09/23/05) Hyperlipidemia (Chronic 09/03/97) Surgical History History of knee surgery (Inactive) Social History Smoking/Tobacco Use Status: Current every day Tobacco Type: cigarettes Alcohol Intake: former Drug use: Never Substance use type: does not use Adopted: No Foster care: No Housing: apartment Number of Children: 1 Do you feel safe in your relationship?: Yes Additional Social history: Patient is , with one daughter. He is a grandfather of 4. He has a 50 approximate pack-year history of smoking, but denies alcohol use. Exam Narrative Exam Narrative: Const: WDWN male in NAD. HEENT: NC/AT. Normal facial exam. Eyes: Normal conjunctiva and sclera. Neck: Supple. Trachea midline. Lungs: Normal respiratory effort. Lungs are clear. Cor: RRR without murmur/gallop. Good radial pulses. GI: Soft. NT/ND. No guarding or rebound. Neuro: A+O x 3. CN grossly in tact. Good strength and no focal deficit. Gait stable. Ext: No C/C/E. No deformity or tenderness. Skin: Warm and dry without rash.
--- NOTE | 2018-12-18 21:10 | ED.GENADUL_ITS ---
Discharge Plan Disposition Patient Disposition: HOME Condition: Good Discharge Details Chief Complaint: GenMedical Clinical Impression: Encounter for medical screening examination Primary Care Provider: Carlos Nguyen ED Provider: Rudolph Andrew [place] Meds and New Rx's Prescriptions: Continued amitriptyline 25 mg tablet 25 mg PO HS Qty: 90 RF: 3 fluoxetine 20 mg capsule 20 mg PO DAILY Qty: 90 RF: 3 ranitidine HCl 150 mg capsule 150 mg PO BID Qty: 180 RF: 3 rosuvastatin [Crestor] 20 MG tablet 20 mg PO DAILY Qty: 90 RF: 4 gabapentin 600 MG tablet 600 mg PO TID 90 Days Qty: 270 RF: 3 etodolac 400 mg tablet 400 mg PO BID Qty: 180 RF: 3 metoprolol tartrate 25 mg Tablet 12.5 mg PO Q12H Qty: 60 RF: 0 Discharge Instructions Additional Instructions: Your exam and your vital signs are normal. Please follow up with your primary care doctor. Return to the ED for severe headache, fever, chest pain, shortness of breath, abdominal pain, vomiting, fainting, neurological changes/confusion. Referrals: Carlos Nguyen DO [Primary Care Provider] - Discharge Data Discharge Date/Time-TO BE ENTERED AT DEPARTURE: 12/18/18 21:38 Medical Decision Making Patient has no specific complaint. His review of system is completely negative other than feeling strange and cough which is chronic. Orthostatics are normal. Lungs are clear. Saturations normal. Neurologically intact. Benign abdomen. No complaint of pain anywhere. No complaint of chest heaviness, tightness, squeezing, pain. Given normal vital signs without orthostasis and normal physical exam without a specific complaint patient is cleared for discharge and follow-up with primary care with instructions to return if he develops any worrisome symptoms. HPI General Mode of arrival: EMS . Date/Time Provider Initiated Documentation: 12/18/18 21:05 . Limitations to Documentation: no limitations . Information obtained by: patient and RN notes reviewed . HPI Narrative: Patient here by ambulance because he feels strange. He is not able to elaborate on that. He just states that he feels strange tonight. He denies having a headache, fever, chest pain, shortness of breath, abdominal pain, vomiting, confusion, numbness or weakness. He does report a cough but is a smoker and does not report any change in his cough. He does not drink alcohol. He has been eating and drinking today without difficulty. She can offer no specifics for me. Related Data Home Medications Medication Instructions Recorded Confirmed rosuvastatin [Crestor] 20 mg PO DAILY #90 tab 02/11/18 12/18/18 gabapentin 600 mg PO TID 90 Days #270 tab-cap 03/29/18 12/18/18 amitriptyline 25 mg tablet 25 mg PO HS #90 tab-cap 08/20/18 12/18/18 fluoxetine 20 mg capsule 20 mg PO DAILY #90 cap 08/20/18 12/18/18 ranitidine 150 mg capsule 150 mg PO BID #180 tab-cap 08/20/18 12/18/18 metoprolol tartrate 12.5 mg PO Q12H #60 tab 10/03/18 12/18/18 etodolac 400 mg tablet 400 mg PO BID #180 tab-cap 12/09/18 12/18/18 Previous Rx's Medication Instructions Recorded rosuvastatin [Crestor] 20 mg PO DAILY #90 tab 02/11/18 gabapentin 600 mg PO TID 90 Days #270 tab-cap 03/29/18 amitriptyline 25 mg tablet 25 mg PO HS #90 tab-cap 08/20/18 fluoxetine 20 mg capsule 20 mg PO DAILY #90 cap 08/20/18 ranitidine 150 mg capsule 150 mg PO BID #180 tab-cap 08/20/18 metoprolol tartrate 12.5 mg PO Q12H #60 tab 10/03/18 etodolac 400 mg tablet 400 mg PO BID #180 tab-cap 12/09/18 Allergies Allergy/AdvReac Type Severity Reaction Status Date / Time tetanus and diphtheria AdvReac Intermediate severe Verified 12/18/18 21:11 toxoids muscle pain x 2 weeks after injection on 09/2012 General SORAYA: 3 Review of Systems Review of Systems 06/16 Review of Systems completed and is negative except as stated above in HPI (Systems reviewed: Const, Eyes, ENT, Resp, CV, GI, , MSK, Skin, Neuro) [facility] Medical History Pulmonary nodule (Chronic) Tobacco use disorder, moderate, dependence (Chronic 09/23/05) Spinal stenosis in cervical region (Chronic 01/01/90) Other speech disturbance (Chronic 09/04/59) Migraine without aura and without status migrainosus, not intractable (Chronic 09/23/05) Hyperlipidemia (Chronic 09/03/97) Surgical History History of knee surgery (Inactive) Social History Smoking/Tobacco Use Status: Current every day Tobacco Type: cigarettes Alcohol Intake: former Drug use: Never Substance use type: does not use Adopted: No Foster care: No Housing: apartment Number of Children: 1 Do you feel safe in your relationship?: Yes Additional Social history: Patient is , with one daughter. He is a grandfather of 4. He has a 50 approximate pack-year history of smoking, but denies alcohol use. Exam Narrative Exam Narrative: Const: WDWN male in NAD. HEENT: NC/AT. Normal facial exam. Eyes: Normal conjunctiva and sclera. Neck: Supple. Trachea midline. Lungs: Normal respiratory effort. Lungs are clear. Cor: RRR without murmur/gallop. Good radial pulses. GI: Soft. NT/ND. No guarding or rebound. Neuro: A+O x 3. CN grossly in tact. Good strength and no focal deficit. Gait stable. Ext: No C/C/E. No deformity or tenderness. Skin: Warm and dry without rash.
[2018-12-18 21:25] VITALS: BP 107/65; BP 107/70; BP 111/66; PULSE 80; PULSE 85; PULSE 87
== END 2018-12-18 21:38 | disposition home or self-care (01) ==
LOC: ER 21:40
PROVIDERS: Emergency Provider Emergency Medicine; PCP Family Medicine
DX: R05 Cough (principal); F17.210 Nicotine dependence, cigarettes, uncomplicated
CPT/HCPCS: 99283

== ENCOUNTER 2020-10-06 14:34 | Observation (INO) | payer MEDICARE, MEDICAID, SELFPAY ==
[2020-10-06] VITALS (47 sets, daily range): BP systolic 106–141; BP diastolic 68–88; PULSE 91–111; RESP 12–27; TEMP 36.5–37.7; O2SAT 92–97
--- NOTE | 2020-10-06 14:45 | RT.EKG_ITS ---
APPROVED REPORT Exam: Resting ECG Patient Location: E HR:99 bpm ECG Measurements Heart Rate 99 AXIS ND 168 P 58 QRSd 82 QRS 30 QT 349 T 75 QTc 449 Conclusion Sinus rhythm...normal P axis, V-rate 60- 99
[2020-10-06] MEDS: Normal Saline 1,000 ML 1000 ML IV (15:29)
[2020-10-06] MEDS: Acetaminophen 500 MG TAB 1000 MG PO (15:30)
[2020-10-06 15:37] LABS: Source Nasopharynx
--- NOTE | 2020-10-06 15:42 | W.ED.GENAD ---
Discharge Plan Discharge Details Chief Complaint: GenMedical Primary Care Provider: Carlos Nguyen ED Provider: Marry Rocha Home Meds and New Rx's Prescriptions: No Action fluoxetine 20 mg capsule 20 mg PO DAILY Qty: 90 RF: 3 gabapentin 600 mg tablet 600 mg PO TID 90 Days Qty: 270 RF: 3 (DME) Wheeled walker Qty: 1 RF: 0 rosuvastatin [Crestor] 20 mg tablet 20 mg PO DAILY Qty: 90 RF: 3 ranitidine HCl 150 mg capsule 150 mg PO BID Qty: 180 RF: 3 etodolac 400 mg tablet 400 mg PO BID Qty: 180 RF: 3 metoprolol tartrate 25 mg Tablet 12.5 mg PO Q12H Qty: 60 RF: 0 escitalopram oxalate 20 mg tablet 20 mg PO DAILY RF: 0 amitriptyline 25 mg tablet 50 mg PO HS RF: 0 Medical Decision Making Patient is alert and oriented but given that he criteria with a lactate of 2, tachycardia, greater than 100, suspected source of pneumonia, and reported temp of 101.3 per EMS, patient would benefit from admission for observation and antibiotic intravenously She received 1 L of fluids, 500 mg of azithromycin, 2 g of ceftriaxone Diagnostic lab actually. However he does not have evidence of urinary tract infection, no leukocytosis Covid, flu, and RSV negative No respiratory distress Case discussed with Dr. Claudio, admitting hospitalist I did consider pulmonary embolism, bronchitis, urinary tract infection, however the clinical picture does not fit with any of these diagnoses Differential Diagnosis Differential Diagnosis: Pneumonia, pulmonary embolism, urinary tract infection, COVID-19 Medical Records Medical records reviewed: Yes I reviewed the patient's medical records. Lab Data Lab results reviewed: Yes I reviewed the patient's lab results. HPI 65-year-old gentleman presents with report of fever, weakness, cough for the past 3 days. Patient plans to contact history, pulmonary nodule, tobacco abuse.. He denies nausea or vomiting. He denies any calf pain or swelling or history of prior. Symptoms are exacerbated with walking. He went to urgent care today to be evaluated and referred here for evaluation via ambulance because he was unable to walk secondary to weakness. Balloon. Denies any rash. Patient reports intermittent diarrhea. Denies any urinary symptoms. Denies stiff neck or headache. Has had chills at home. Has not taken temperature reportedly. General Date/Time Provider Initiated Documentation: 10/06/20 14:41. Related Data Home Medications Medication Instructions Recorded Confirmed fluoxetine 20 mg capsule 20 mg PO DAILY #90 cap 08/20/18 04/18/19 metoprolol tartrate 12.5 mg PO Q12H #60 tab 10/03/18 04/18/19 rosuvastatin 20 mg tablet 20 mg PO DAILY #90 tab 04/17/19 04/18/19 Wheeled walker #1 ea 04/18/19 04/18/19 gabapentin 600 mg tablet 600 mg PO TID 90 Days #270 tab-cap 04/18/19 10/06/20 ranitidine HCl 150 mg capsule 150 mg PO BID #180 tab-cap 09/04/19 etodolac 400 mg tablet 400 mg PO BID #180 tab-cap 12/08/19 10/06/20 amitriptyline 50 mg PO HS 10/06/20 10/06/20 escitalopram oxalate 20 mg PO DAILY 10/06/20 10/06/20 Previous Rx's Medication Instructions Recorded fluoxetine 20 mg capsule 20 mg PO DAILY #90 cap 08/20/18 metoprolol tartrate 12.5 mg PO Q12H #60 tab 10/03/18 rosuvastatin 20 mg tablet 20 mg PO DAILY #90 tab 04/17/19 Wheeled walker #1 ea 04/18/19 gabapentin 600 mg tablet 600 mg PO TID 90 Days #270 tab-cap 04/18/19 ranitidine HCl 150 mg capsule 150 mg PO BID #180 tab-cap 09/04/19 etodolac 400 mg tablet 400 mg PO BID #180 tab-cap 12/08/19 Allergies Allergy/AdvReac Type Severity Reaction Status Date / Time tetanus and diphtheria AdvReac Intermediate severe Verified 10/06/20 14:50 toxoids muscle pain x 2 weeks after injection on 09/2012 General Stated Complaint: GenMedical SORAYA: 3 Review of Systems Narrative: Review of systems negative x7, as indicated in HPI [facility] Medical History Ambulatory dysfunction Chronic pain Depressive disorder (09/23/05) DEPRESSION 2005 Emphysema lung Hyperlipidemia (09/03/97) GOAL LDL<100; LDL 200 PRIOR TO RX; RISK >20% (11/2005): RX ASA, CRESTOR, STOP SMOKING! 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 Diabetes Essential hypertension Stroke Father , surgical complicatio at age 56. No problems noted. Sister No problems noted. Sister No problems noted. Brother No problems noted. Brother No problems noted. Brother , Blood disease at age 64. No problems noted. Brother Essential hypertension Brother No problems noted. 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 He is a grandfather of 4. He has a 50 approximate pack-year history of smoking, but denies alcohol use. Exam Const General: cooperative Nutritional Appearance: thin Orientation: alert HENND Head: normal to inspection Mouth: oral mucosae normal Eyes General: appearance normal, both eyes and all related structures Neck Thyroid: thyroid normal Chest Chest: normal inspection of the chest Resp Effort & Inspection: normal respiratory effort and no use of accessory muscles Auscultation: crackles and rhonchi Cardio Rate: tachycardic Rhythm: regular rhythm Neuro General: patient alert Cranial Nerves: CN's II-XI intact bilaterally Cognition: normal cognition Speech: speech normal Sensory Exam: no sensory deficits noted Extrem Other: no calf tenderness or swelling appreciated Psych Appearance: well kempt Mental Status: mental status grossly normal Speech and Movement: speech and movement normal Mood: anxious mood Thought Process: normal Thought Content: normal Insight: insight good Judgment: judgment good Course Vital Signs Vital signs: Vital Signs Temperature 37.6 C H 10/06/20 14:34 Pulse 102 H 10/06/20 14:34 Respiratory Rate 20 10/06/20 14:34 Blood Pressure 126/79 10/06/20 14:34 Pulse Oximetry 95 10/06/20 14:34 Temperature 37.6 C H 10/06/20 14:34 Temperature Source Oral 10/06/20 14:34 Pulse 102 H 10/06/20 14:34 Respiratory Rate 16 10/06/20 14:44 Respiratory Effort Non-Labored 10/06/20 14:44 Respiratory Depth Normal 10/06/20 14:44 Respiratory Pattern Normal 10/06/20 14:44 Blood Pressure 126/79 10/06/20 14:34 Blood Pressure Position Supine 10/06/20 14:34 Pulse Oximetry 95 10/06/20 14:34 Oxygen Delivery Method Room Air 10/06/20 14:34 Oxygen Flow Rate 0 10/06/20 14:34 Pain Level 0 10/06/20 14:34 Lab/Test Results Lab/Test Results: 10/06/20 15:12 Blood Blood Culture - Pending 10/06/20 15:12 Blood Blood Culture - Pending Laboratory Tests Range/Units 10/06/20 15:00 VBG Lactate (0.6-1.4) mmol/L 2.0 H Critical Care Time Critical Care Time Critical Care Time: Yes Total Critical Care Time: 35 Attestation: Currently 35 minutes of critical care time was utilized for IV placement, antibiotic initiation, diagnostic labs and x-ray and admission, in addition to IV fluid hydration
[2020-10-06 15:55] LABS: ALT 49 U/L (16-63); AST 24 U/L (15-37); Albumin 3.6 g/dL (3.4-5.0); Alkaline Phosphatase 67 U/L (46-116); Anion Gap 10.1 mmol/L (3-11); BUN 16 mg/dL (7-18); Bilirubin, Total 0.7 mg/dL (0.2-1.0); C-Reactive Protein 0.12 mg/dL (0.0-0.3); CO2 24.9 mmol/L (21.0-32.0); CREATININE 1.3 mg/dL (0.70-1.30); Chloride 108 mmol/L (98-107); Glucose 98 mg/dL (74-106); Potassium 4.1 mmol/L (3.5-5.1); Sodium 143 mmol/L (136-145); Total Protein 6.7 g/dL (6.4-8.2)
[2020-10-06 15:56] LABS: Troponin I < 0.05 ng/mL (<0.06)
[2020-10-06 15:58] LABS: NT-proBNP 114 pg/mL (<300)
[2020-10-06 16:12] LABS: Abs Immature Grans 0.04 10^3/uL (0.0-0.06); Absolute Basophil Count 0.05 10^3/uL (0.0-0.2); Absolute Eosinophil Count 0.09 10^3/uL (0.0-0.7); Absolute Lymphocyte Count 1.66 10^3/uL (1.2-3.4); Absolute Monocyte Count 0.61 10^3/uL (0.1-0.8); Absolute Neutrophil Count 7.36 10^3/uL (1.2-6.7); Basophils % 0.5; Eosinophils % 0.9; HCT 42.8 % (40.0-50.0); HGB 14.4 g/dL (13.5-17.5); Immature Grans % 0.4; Lymphocytes % 16.9; MCH 31.9 pg (27.0-33.0); MCHC 33.6 % (32.0-36.0); MCV 94.9 fL (80-95); MPV 11.1 fL (8.0-11.0); Monocytes % 6.2; Neutrophils % 75.1; Nucleated RBC 0 %; Platelet Count 141 10^3/uL (130-400); RBC 4.51 10^6/uL (4.36-5.78); RDW 13.4 % (11.8-14.1); RDW-SD 47.7 fL; WBC 9.81 10^3/uL (4.4-10.8)
--- NOTE | 2020-10-06 16:20 | DI.RAD_ITS ---
EXAM: XR PORTABLE CHEST AP CLINICAL HISTORY: fever, shortness of breath TECHNIQUE: 2D digital imaging was performed. COMPARISON: No exams were available for comparison FINDINGS: MEDIASTINUM: Normal. HEART: Normal. PULMONARY VASCULATURE: Normal. LUNGS: Clear. PLEURAL SPACE: No pleural effusion or pneumothorax. BONE:Within normal limits for the patient's age. OTHER FINDINGS:Normal. IMPRESSION: No acute pulmonary findings. DATA REPOSITORY: RADIATION DOSE DELIVERED:
--- NOTE | 2020-10-06 16:33 | DI.VRAD_ITS ---
PROCEDURE INFORMATION: Exam: XR Chest, 1 View Exam date and time: 10/06/2020 4:17 PM Age: 65 years old Clinical indication: Fever and shortness of breath; Additional info: Pui for covid -19 TECHNIQUE: Imaging protocol: XR of the chest Views: 1 view. COMPARISON: CR XR CHEST 2V PA LATERAL 10/26/2018 6:18 PM FINDINGS: Lungs: The lungs are clear without opacity or suspicious parenchymal finding. Pleural spaces: Unremarkable. No pleural effusion. No pneumothorax. Heart/Mediastinum: Unremarkable. No cardiomegaly. Bones/joints: Unremarkable. IMPRESSION: No acute cardiopulmonary process. Dictated and Authenticated by: Antonella Gonzalez MD. Ordering:TONY Tuttle MD
[2020-10-06 16:39] LABS: COVID-19 PCR Negative (Negative); Influenza A PCR Negative (Negative); Influenza B PCR Negative (Negative); RSV PCR Negative (Negative)
[2020-10-06 16:46] LABS: ESR 37 mm/hr (1-20)
[2020-10-06 16:59] LABS: Bilirubin Large (Negative); Blood Trace-intact (Negative); Clarity Clear (Clear); Glucose Negative (Negative); Ketones Negative (Negative); Leukocyte Esterase Negative (Negative); Nitrite Negative (Negative); Urobilinogen 0.2 EU/dL (Up TO 0.2)
[2020-10-06] MEDS: cefTRIAXone 2 GM/50 ML BAG IVPB (17:05)
[2020-10-06 17:16] LABS: Bacteria Negative HPF (Negative); C & S Indicated? No; Casts 5-10 Hyaline LPF (Negative); Crystals Negative HPF (Negative); Epithelial Cells Negative HPF (Negative); Mucus Trace (Negative); WBC 0-2 HPF (0-5)
--- NOTE | 2020-10-06 17:33 | HPE_ITS ---
Date of service: 10/06/20 Time of Service: 17:33 Assessment and Plan Assessment and plan (1) Cough: Status: Acute Assessment and plan: Cough and weakness. Exam suggests possible LLL infiltrate, could be early pneumonia not appearing on CXR (note film was only AP). Covid unlikely given negative PCR but might repeat if question remains. Or may simply be URI. Will continue antibiotics for now, and repeat CXR in AM. History of Present Illness History of Present Illness Chief Complaint: cough Narrative: 65 male smoker. reports several days of cough and generalize weakness, along with fever. No CO or SOB. States he uses precautions and has no known Covid exposure. In ER w/u of note for temp to 37.6, left basilar rales, normal white count w/o shift and negative CXR. Rapid Covid negative. Given Rocephin and Zithro and admitted for further management. Review of Systems All systems reviewed & are unremarkable except as noted in HPI and below PFSH Medical History Ambulatory dysfunction Chronic pain Depressive disorder (09/23/05) DEPRESSION 2005 Emphysema lung Hyperlipidemia (09/03/97) GOAL LDL<100; LDL 200 PRIOR TO RX; RISK >20% (11/2005): RX ASA, CRESTOR, STOP SMOKING! 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 Diabetes Essential hypertension Stroke Father , surgical complicatio at age 56. No problems noted. Sister No problems noted. Sister No problems noted. Brother No problems noted. Brother No problems noted. Brother , Blood disease at age 64. No problems noted. Brother Essential hypertension Brother No problems noted. 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 He is a g randfather of 4. He has a 50 approximate pack-year history of smoking, but denies alcohol use. Meds Home Medications and Allergies Home Medications Medication Instructions Recorded Confirmed Type fluoxetine 20 mg capsule 20 mg PO DAILY #90 cap 08/20/18 04/18/19 Rx metoprolol tartrate 12.5 mg PO Q12H #60 tab 10/03/18 04/18/19 Rx rosuvastatin 20 mg tablet 20 mg PO DAILY #90 tab 04/17/19 04/18/19 Rx Wheeled walker #1 ea 04/18/19 04/18/19 Rx gabapentin 600 mg tablet 600 mg PO TID 90 Days #270 tab-cap 04/18/19 04/18/19 Rx ranitidine HCl 150 mg capsule 150 mg PO BID #180 tab-cap 09/04/19 Rx etodolac 400 mg tablet 400 mg PO BID #180 tab-cap 12/08/19 Rx amitriptyline 50 mg PO HS 10/06/20 10/06/20 History escitalopram oxalate 20 mg PO DAILY 10/06/20 10/06/20 History Allergies Allergy/AdvReac Type Severity Reaction Status Date / Time tetanus and diphtheria AdvReac Intermediate severe Verified 10/06/20 14:50 toxoids muscle pain x 2 weeks after injection on 09/2012 Exam Narrative Exam Narrative: 141/88, 107, 37.6, 22, 94% RA. HEENT atraumatic; neck supple; lungs diminished but fine rales left base; heart distant but regular/tachy; abdomen soft and NT; extremities we/o edema; neuro Ox3, moves all 4s Results Labs Result diagrams: 10/06/20 15:00 10/06/20 15:12 Labs: Laboratory Results - last 24 hr 10/06/20 10/06/20 10/06/20 15:00 15:00 15:00 WBC RBC Hgb Hct MCV MCH MCHC RDW Plt Count MPV Immature Gran % Neutrophils % Lymphocytes % Monocytes % Eosinophils % Basophils % Nucleated RBC % Absolute Neutrophils Absolute Lymphocytes Absolute Monocytes Absolute Eosinophils Absolute Basophils ESR VBG Lactate 2.0 H Sodium Potassium Chloride Carbon Dioxide Anion Gap BUN Creatinine Estimated GFR/1.73 m2 Glucose Calcium Total Bilirubin AST ALT Alkaline Phosphatase Troponin I < 0.05 C-Reactive Protein NT-Pro-B Natriuret Pep Total Protein Albumin Urine Color Urine Clarity Urine pH Ur Specific Clover Urine Protein Urine Ketones Urine Blood Urine Nitrite Urine Bilirubin Urine Urobilinogen Ur Leukocyte Esterase Urine RBC Urine WBC Ur Epithelial Cells Urine Crystals Urine Bacteria Urine Casts Urine Mucus Ur Culture Indicated? Urine Glucose COVID-19 Source Nasopharynx SARS-CoV-2 (PCR) Negative Influenza Type A (PCR) Negative Influenza Type B (PCR) Negative RSV (PCR) Negative 10/06/20 10/06/20 10/06/20 15:00 15:00 15:00 WBC 9.81 RBC 4.51 Hgb 14.4 Hct 42.8 MCV 94.9 MCH 31.9 MCHC 33.6 RDW 13.4 Plt Count 141 MPV 11.1 H Immature Gran % 0.4 Neutrophils % 75.1 Lymphocytes % 16.9 Monocytes % 6.2 Eosinophils % 0.9 Basophils % 0.5 Nucleated RBC % 0 Absolute Neutrophils 7.36 H Absolute Lymphocytes 1.66 Absolute Monocytes 0.61 Absolute Eosinophils 0.09 Absolute Basophils 0.05 ESR 37 H VBG Lactate Sodium Potassium Chloride Carbon Dioxide Anion Gap BUN Creatinine Estimated GFR/1.73 m2 Glucose Calcium Total Bilirubin AST ALT Alkaline Phosphatase Troponin I C-Reactive Protein NT-Pro-B Natriuret Pep 114 Total Protein Albumin Urine Color Urine Clarity Urine pH Ur Specific Clover Urine Protein Urine Ketones Urine Blood Urine Nitrite Urine Bilirubin Urine Urobilinogen Ur Leukocyte Esterase Urine RBC Urine WBC Ur Epithelial Cells Urine Crystals Urine Bacteria Urine Casts Urine Mucus Ur Culture Indicated? Urine Glucose COVID-19 Source SARS-CoV-2 (PCR) Influenza Type A (PCR) Influenza Type B (PCR) RSV (PCR) 10/06/20 10/06/20 15:12 16:30 WBC RBC Hgb Hct MCV MCH MCHC RDW Plt Count MPV Immature Gran % Neutrophils % Lymphocytes % Monocytes % Eosinophils % Basophils % Nucleated RBC % Absolute Neutrophils Absolute Lymphocytes Absolute Monocytes Absolute Eosinophils Absolute Basophils ESR VBG Lactate Sodium 143 Potassium 4.1 Chloride 108 H Carbon Dioxide 24.9 Anion Gap 10.1 BUN 16 Creatinine 1.3 Estimated GFR/1.73 m2 55.40 Glucose 98 Calcium 9.0 Total Bilirubin 0.7 AST 24 ALT 49 Alkaline Phosphatase 67 Troponin I C-Reactive Protein 0.12 NT-Pro-B Natriuret Pep Total Protein 6.7 Albumin 3.6 Urine Color Yellow Urine Clarity Clear Urine pH 7.0 Ur Specific Clover 1.020 Urine Protein Negative Urine Ketones Negative Urine Blood Trace-intact H Urine Nitrite Negative Urine Bilirubin Large H Urine Urobilinogen 0.2 Ur Leukocyte Esterase Negative Urine RBC 10-20 H Urine WBC 0-2 Ur Epithelial Cells Negative Urine Crystals Negative Urine Bacteria Negative Urine Casts 5-10 hyaline Urine Mucus Trace Ur Culture Indicated? No Urine Glucose Negative COVID-19 Source SARS-CoV-2 (PCR) Influenza Type A (PCR) Influenza Type B (PCR) RSV (PCR) Last Vital Signs Temp 37.6 C H 10/06/20 14:34 Pulse 93 H 10/06/20 16:45 Resp 22 10/06/20 17:10 BP 141/88 H 10/06/20 16:45 Pulse Ox 94 10/06/20 17:10 COVID-19 Screening Have you, or household traveled for leisure in last 14 days?: No Had IN PERSON contact w/suspected or confirmed C-19 person: No
--- NOTE | 2020-10-06 17:38 | NUR.NOTE ---
Nursing Note: Pt presents to the ED without a list of current medications. Pt states he does not know what he takes for medications. Is a current patient of Dr. Greene, last office visit 04/2019. Pt outside prescriptions that were picked up are able to be seen- those medications that were picked up are confirmed on his medication lists, the remainder of the medications on the list can not be confirmed at this time. Hospitalist Dr. Claudio in ED and is aware of this information.
[2020-10-06] MEDS: AZITHROMYCIN 500 MG in Normal Saline 250 ML 250 MG IVPB (17:44)
[2020-10-06] MEDS: Normal Saline Flush 10 ML SYR IVP (17:44)
[2020-10-07 02:33] VITALS: O2SAT 95
[2020-10-07 06:09] VITALS: TEMP 36.6
--- NOTE | 2020-10-07 07:46 | DI.RAD_ITS ---
EXAM: XR CHEST 2V PA LATERAL CLINICAL HISTORY: cough, fever TECHNIQUE: 2D digital imaging was performed. COMPARISON: CR XR CHEST 2V PA LATERAL from 10/26/2018 CR,XR XR PORTABLE CHEST AP from 10/06/2020 FINDINGS: MEDIASTINUM: Normal. HEART: Normal. PULMONARY VASCULATURE: Normal. LUNGS: Clear. PLEURAL SPACE: No pleural effusion or pneumothorax. BONE:Within normal limits for the patient's age. OTHER FINDINGS:Normal. IMPRESSION: No acute pulmonary findings. DATA REPOSITORY: RADIATION DOSE DELIVERED:
[2020-10-07] MEDS: Normal Saline Flush 10 ML SYR IVP (09:07)
[2020-10-07 09:24] VITALS: BP 132/92; PULSE 72; RESP 18; TEMP 37.3; O2SAT 97
[2020-10-07 09:47] LABS: Abs Immature Grans 0.03 10^3/uL (0.0-0.06); Absolute Basophil Count 0.06 10^3/uL (0.0-0.2); Absolute Eosinophil Count 0.11 10^3/uL (0.0-0.7); Absolute Lymphocyte Count 1.87 10^3/uL (1.2-3.4); Absolute Monocyte Count 0.64 10^3/uL (0.1-0.8); Absolute Neutrophil Count 6.29 10^3/uL (1.2-6.7); Basophils % 0.7; Eosinophils % 1.2; HCT 45.7 % (40.0-50.0); HGB 15.3 g/dL (13.5-17.5); Immature Grans % 0.3; Lymphocytes % 20.8; MCH 31.9 pg (27.0-33.0); MCHC 33.5 % (32.0-36.0); MCV 95.4 fL (80-95); MPV 10.8 fL (8.0-11.0); Monocytes % 7.1; Neutrophils % 69.9; Nucleated RBC 0 %; Platelet Count 145 10^3/uL (130-400); RBC 4.79 10^6/uL (4.36-5.78); RDW 13.4 % (11.8-14.1); RDW-SD 47.4 fL
--- NOTE | 2020-10-07 10:10 | PDOC.CMIN ---
- If Service Date Differs Date of service: 10/07/20 Time of Service: 10:10 Care Management Initial Assess REASON FOR HOSPITALIZATION:: Cough, weakness PAST MEDICAL HISTORY/PAST SURGICAL HISTORY:: Medical History. Ambulatory dysfunction. Chronic pain. Depressive disorder (09/23/05). DEPRESSION 2005. Emphysema lung. Hyperlipidemia (09/03/97). GOAL LDL<100; LDL 200 PRIOR TO RX; RISK >20% (11/2005): RX ASA, CRESTOR, STOP SMOKING! Migraine without aura and without status migrainosus, not intractable (09/23/05). MIGRAINE, H/O MAXALT. 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 Pulmonary nodule. Spinal stenosis in cervical region (01/01/90). NECK PAIN, 01/1990 DR COBURN C-6 INTO L ARM; neurontin for neuropathic pain. Tobacco use disorder, moderate, dependence (09/23/05). CHRONIC SMOKER <2005; 1 PPD. Surgical History. History of knee surgery PREVIOUS FUNCTIONAL STATUS/SOCIAL/FAMILY SUPPORTS:: Alex lives alone in [facility]. He has a daughter and four children, who live in [place], and do not provide support. Alex has a nurse case manager, Judy De Los Santos, [employer]. He is independent with ADL's, but does not drive. CURRENT FUNCTIONAL STATUS:: Alex was sitting up in his bed when CM met with him. He stated that he is feeling ok. He reported that he is being discharged today. He reported that he has C moderate needs, but due to Covid, he hasn't received it. CM contacted his nurse case manager from [employer], Judy De Los Santos, who stated that he is active and on the list for moderate needs, once services can continue. CM will continue to follow. ADVANCE DIRECTIVES:: None on file. CM will offer forms. Has patient been provided with info about the portal/API?: Yes Did the patient sign up for the portal?: No CODE STATUS:: Full Code INSURANCE COVERAGE / FINANCIAL ISSUES:: [facility] CURRENT HOME/COMMUNITY SERVICES/EQUIPMENT:: Alex has [employer] moderate needs. PRIMARY CARE PHYSICIAN:: Carlos Nguyen POTENTIAL DISCHARGE NEEDS:: Evaluations for further needs, follow up appointments. PATIENT/FAMILY EDUCATION NEEDS:: Review discharge instructions regarding activity level and medications, discussion of self care needs and goals of care. ANTICIPATED BARRIERS TO DISCHARGE:: None identified. TRANSPORTATION:: Via private vehicle by [facility] PLAN:: Anticipate Alex will return home when medically cleared. HH services will be ordered, if indicated. He will be driven home via [facility] private vehicle. He will follow up with his PCP and discharge plan of care. CM will continue to follow.
--- NOTE | 2020-10-07 11:10 | W.PM.DS.N ---
Date of service: 10/07/20 Time of Service: 11:11 DS: Diagnosis Discharge Diagnosis (1) Cough: Start date: 10/07/20 Start time: 11:11 Status: Acute Asessment and Plan: Cough with white sputum. CXR without acute abnormality, repeat with no abnormality he is a smoker, this appears to be a viral bronchitis, No leukocytosis, he was febrile, but that is expected with virus, his covid was negative, flu negative. Will manage symptoms with tylenol/ibuprofen, rest and fluids. If sputum turn green he will then need an antibiotic as it will then be bacterial bronchitis. He is being discharged home. Discharge Plan Disposition Patient Disposition: HOME Condition: Stable Discharge Details Reason For Visit: COUGH, WEAKNESS Admit Date/Time: 10/06/20 17:42 Admit Provider: Abraham Claudio Attending Provider: Abraham Claudio Primary Care Provider: Carlos Nguyen [place] [facility] Course Hospital Course: 65 y.o male admitted to [facility] after presenting to ED with cough, weakness, fever and arthralgias, COVID, and influenza negative. He was admitted to m/s due to weakness. Labs unremarkable in ED, CXR negative for abnormality. Today repeat CXR negative, continues to have no leukocytosis, when asked about sputum he states it is white. He was able to get out of bed and go to without any assistance. He likely has viral bronchitis. He is being discharged home. We discussed that he needs to rest, increase fluid intake and take otc tylenol or ibuprofen for fevers. If sputum color changes to green he will then need to start an antibiotic. I will write for augmentin if sputum changes color he will get if filled and start taking immediately. Home Meds and New Rx's Prescriptions: New amoxicillin-pot clavulanate [Augmentin] 875-125 mg tablet 1 tab PO BID Qty: 14 RF: 0 Continued fluoxetine 20 mg capsule 20 mg PO DAILY Qty: 90 RF: 3 gabapentin 600 mg tablet 600 mg PO TID 90 Days Qty: 270 RF: 3 rosuvastatin [Crestor] 20 mg tablet 20 mg PO DAILY Qty: 90 RF: 3 ranitidine HCl 150 mg capsule 150 mg PO BID Qty: 180 RF: 3 etodolac 400 mg tablet 400 mg PO BID Qty: 180 RF: 3 metoprolol tartrate 25 mg Tablet 12.5 mg PO Q12H Qty: 60 RF: 0 escitalopram oxalate 20 mg tablet 20 mg PO DAILY RF: 0 amitriptyline 25 mg tablet 50 mg PO HS RF: 0 No Action (DME) Wheeled walker Qty: 1 RF: 0 Discharge Instructions Instructions: Acute Bronchitis (GEN) Additional Instructions: You have viral bronchitis at this time. Running a fever, feeling weak and tired are normal symptoms of a viral illness. You need rest, plenty of fluids, take over the counter ibuprofen or tylenol every 4 hours as needed for fever and pain intermittently. This could last for days. You had a negative COVID and FLU test If your phlegm becomes green then your viral illness has become bacterial and you will need to have an antibiotic. Fill the prescription given to you and take immediately for 7 days but ONLY if you have green phlegm. Stand Alone Forms: Nursing Discharge Form Referrals: Carlos Nguyen DO [Primary Care Provider] - 10/18/20 3:00 pm Activity:: Activity as Tolerated Equipment/Supplies:: No Equipment Needed Diet:: Low Sodium Discharge Orders Discharge Orders: Discharge Order (Routine); Ordered 10/07/20 Ordered By: Janine Mtz DS: Summary Time Spent with Patient providing and/or coordinating discharge services: Less than 30 minutes Status at Discharge Functional status at discharge: independent ambulation Overall status at discharge: patient is back to baseline Mental Status: mental status grossly normal Speech and Movement: speech and movement normal Mood: congruent mood Affect: normal affect Exam Narrative Exam Narrative: RA. HEENT atraumatic; neck supple; lungs diminished but fine rales left base; heart distant but regular/tachy; abdomen soft and NT; extremities w/o edema; neuro Ox3, moves all 4s Psych Mental Status: mental status grossly normal Speech and Movement: speech and movement normal Mood: congruent mood Affect: normal affect DS: Data Vitals/I&O Vitals and I&O: Vital Signs Temperature 37.3 C 10/07/20 09:24 Temperature Source Tympanic 10/07/20 09:24 Pulse 72 10/07/20 09:24 Pulse Rhythm Regular 10/07/20 02:33 Pulse 95 H 10/06/20 18:50 Respiratory Rate 18 10/07/20 09:24 Respiratory Effort Non-Labored 10/07/20 02:33 Respiratory Depth Normal 10/07/20 02:33 Respiratory Pattern Normal 10/07/20 02:33 Blood Pressure 132/92 H 10/07/20 09:24 Blood Pressure Mean 85 10/06/20 18:45 Blood Pressure Position Supine 10/06/20 14:34 Pulse Oximetry 97 10/07/20 09:24 Oxygen Delivery Method Room Air 10/07/20 09:24 Oxygen Flow Rate 0 10/07/20 09:24 Pain Level 0 10/07/20 09:24 Intake & Output 10/06/20 10/06/20 10/07/20 11:59 23:59 11:59 Intake Total 1540 / 1540 Output Total 600 / 600 Balance 1540 / 1540 -600 / -600 Weight 97.7 kg Intake: IV 1300 / 1300 Oral 240 / 240 Output: Urine 600 / 600 Other: Urine Color Light Mayi Urine Appearance Clear Urine Odor Normal Stool Size Moderate Stool Characteristics Soft Voiding Methods Urinal Data Completed and Pending Completed studies during hospitalization [Text1]: FINDINGS: Lungs: The lungs are clear without opacity or suspicious parenchymal finding. Pleural spaces: Unremarkable. No pleural effusion. No pneumothorax. Heart/Mediastinum: Unremarkable. No cardiomegaly. Bones/joints: Unremarkable. IMPRESSION: No acute cardiopulmonary process. MEDIASTINUM: Normal. HEART: Normal. PULMONARY VASCULATURE: Normal. LUNGS: Clear. PLEURAL SPACE: No pleural effusion or pneumothorax. BONE:Within normal limits for the patient's age. OTHER FINDINGS:Normal. IMPRESSION: No acute pulmonary findings. Labs on day of discharge: Labs from last 24 hours 10/07/20 10/06/20 10/06/20 09:39 17:51 16:30 WBC 9.00 RBC 4.79 Hgb 15.3 Hct 45.7 MCV 95.4 H MCH 31.9 MCHC 33.5 RDW 13.4 Plt Count 145 MPV 10.8 Immature Gran % 0.3 Neutrophils % 69.9 Lymphocytes % 20.8 Monocytes % 7.1 Eosinophils % 1.2 Basophils % 0.7 Nucleated RBC % 0 Absolute Neutrophils 6.29 Absolute Lymphocytes 1.87 Absolute Monocytes 0.64 Absolute Eosinophils 0.11 Absolute Basophils 0.06 ESR VBG Lactate Sodium Potassium Chloride Carbon Dioxide Anion Gap BUN Creatinine Estimated GFR/1.73 m2 Glucose Calcium Total Bilirubin AST ALT Alkaline Phosphatase Troponin I C-Reactive Protein NT-Pro-B Natriuret Pep Total Protein Albumin Urine Color Yellow Urine Clarity Clear Urine pH 7.0 Ur Specific [place] 1.020 Urine Protein Negative Urine Ketones Negative Urine Blood Trace-intact H Urine Nitrite Negative Urine Bilirubin Large H Urine Urobilinogen 0.2 Ur Leukocyte Esterase Negative Urine RBC 10-20 H Urine WBC 0-2 Ur Epithelial Cells Negative Urine Crystals Negative Urine Bacteria Negative Urine Casts 5-10 hyaline Urine Mucus Trace Ur Culture Indicated? No Urine Glucose Negative COVID-19 Source SARS-CoV-2 (PCR) Cancelled Nasopharyn COVID-19 PCR Cancelled Influenza Type A (PCR) Influenza Type B (PCR) RSV (PCR) Ref Test Perform Site Cancelled 10/06/20 10/06/20 10/06/20 15:12 15:00 15:00 WBC 9.81 RBC 4.51 Hgb 14.4 Hct 42.8 MCV 94.9 MCH 31.9 MCHC 33.6 RDW 13.4 Plt Count 141 MPV 11.1 H Immature Gran % 0.4 Neutrophils % 75.1 Lymphocytes % 16.9 Monocytes % 6.2 Eosinophils % 0.9 Basophils % 0.5 Nucleated RBC % 0 Absolute Neutrophils 7.36 H Absolute Lymphocytes 1.66 Absolute Monocytes 0.61 Absolute Eosinophils 0.09 Absolute Basophils 0.05 ESR VBG Lactate Sodium 143 Potassium 4.1 Chloride 108 H Carbon Dioxide 24.9 Anion Gap 10.1 BUN 16 Creatinine 1.3 Estimated GFR/1.73 m2 55.40 Glucose 98 Calcium 9.0 Total Bilirubin 0.7 AST 24 ALT 49 Alkaline Phosphatase 67 Troponin I C-Reactive Protein 0.12 NT-Pro-B Natriuret Pep 114 Total Protein 6.7 Albumin 3.6 Urine Color Urine Clarity Urine pH Ur Specific [place] Urine Protein Urine Ketones Urine Blood Urine Nitrite Urine Bilirubin Urine Urobilinogen Ur Leukocyte Esterase Urine RBC Urine WBC Ur Epithelial Cells Urine Crystals Urine Bacteria Urine Casts Urine Mucus Ur Culture Indicated? Urine Glucose COVID-19 Source SARS-CoV-2 (PCR) Nasopharyn COVID-19 PCR Influenza Type A (PCR) Influenza Type B (PCR) RSV (PCR) Ref Test Perform Site 10/06/20 10/06/20 10/06/20 15:00 15:00 15:00 WBC RBC Hgb Hct MCV MCH MCHC RDW Plt Count MPV Immature Gran % Neutrophils % Lymphocytes % Monocytes % Eosinophils % Basophils % Nucleated RBC % Absolute Neutrophils Absolute Lymphocytes Absolute Monocytes Absolute Eosinophils Absolute Basophils ESR 37 H VBG Lactate 2.0 H Sodium Potassium Chloride Carbon Dioxide Anion Gap BUN Creatinine Estimated GFR/1.73 m2 Glucose Calcium Total Bilirubin AST ALT Alkaline Phosphatase Troponin I C-Reactive Protein NT-Pro-B Natriuret Pep Total Protein Albumin Urine Color Urine Clarity Urine pH Ur Specific [place] Urine Protein Urine Ketones Urine Blood Urine Nitrite Urine Bilirubin Urine Urobilinogen Ur Leukocyte Esterase Urine RBC Urine WBC Ur Epithelial Cells Urine Crystals Urine Bacteria Urine Casts Urine Mucus Ur Culture Indicated? Urine Glucose COVID-19 Source Nasopharynx SARS-CoV-2 (PCR) Negative Nasopharyn COVID-19 PCR Influenza Type A (PCR) Negative Influenza Type B (PCR) Negative RSV (PCR) Negative Ref Test Perform Site 10/06/20 15:00 WBC RBC Hgb Hct MCV MCH MCHC RDW Plt Count MPV Immature Gran % Neutrophils % Lymphocytes % Monocytes % Eosinophils % Basophils % Nucleated RBC % Absolute Neutrophils Absolute Lymphocytes Absolute Monocytes Absolute Eosinophils Absolute Basophils ESR VBG Lactate Sodium Potassium Chloride Carbon Dioxide Anion Gap BUN Creatinine Estimated GFR/1.73 m2 Glucose Calcium Total Bilirubin AST ALT Alkaline Phosphatase Troponin I < 0.05 C-Reactive Protein NT-Pro-B Natriuret Pep Total Protein Albumin Urine Color Urine Clarity Urine pH Ur Specific [place] Urine Protein Urine Ketones Urine Blood Urine Nitrite Urine Bilirubin Urine Urobilinogen Ur Leukocyte Esterase Urine RBC Urine WBC Ur Epithelial Cells Urine Crystals Urine Bacteria Urine Casts Urine Mucus Ur Culture Indicated? Urine Glucose COVID-19 Source SARS-CoV-2 (PCR) Nasopharyn COVID-19 PCR Influenza Type A (PCR) Influenza Type B (PCR) RSV (PCR) Ref Test Perform Site 10/06/20 15:15 Blood Blood Culture - Pending 10/06/20 15:00 Blood Blood Culture - Pending Preliminary micro results at discharge 10/06/20 15:15 Blood Culture - Pending Blood 10/06/20 15:00 Blood Culture - Pending Blood [facility] Medical History Ambulatory dysfunction Chronic pain Depressive disorder (09/23/05) DEPRESSION 2006 Emphysema lung Hyperlipidemia (09/03/97) GOAL LDL<100; LDL 200 PRIOR TO RX; RISK >20% (11/2005): RX ASA, CRESTOR, STOP SMOKING! 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 Diabetes Essential hypertension Stroke Father , surgical complicatio at age 56. No problems noted. Sister No problems noted. Sister No problems noted. Brother No problems noted. Brother No problems noted. Brother , Blood disease at age 64. No problems noted. Brother Essential hypertension Brother No problems noted. 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 He is a grandfather of 4. He has a 50 approximate pack-year history of smoking, but denies alcohol use.
--- NOTE | 2020-10-07 15:47 | CMDISCH_ITS ---
- If Service Date Differs Date of service: 10/07/20 Time of Service: 15:47 LACE Index Scoring Tool - Questions: Length of Stay (in days): 2 Acuity (Admit via E.D.?): Yes E.D. Visits: 1 - Answers: Total Score: 6 Risk of Readmission: Low Risk Care Management Discharge Reason for Hospitalization: Cough, weakness Discharge Plan: Alex will return home with no additional services at this time. ZACK updated his community support worker, Judy De Los Santos, regarding his concern about his [facility] moderate needs. ZACK sent his new prescription to [facility] to inquire about his copay, which was $1.30. CM supplied him with the copay in order for him to pickle cutter his prescription on his way home, as he did not have his wallet with him. He transported home via private vehicle by [facility]. He will follow up with his PCP and discharge plan of care. Patient/Family Education Needs: Review discharge instructions regarding activity levels and medications, discussion of self care needs including ask me three. Services Needed at Discharge: Transportation ([facility] private vehicle)
== END 2020-10-07 13:13 | disposition home or self-care (01) ==
LOC: ER 18:24 → MS 19:09
PROVIDERS: Nurse Practitioner Family; Admitting Provider General Practice; Emergency Provider Physician Assistant; PCP Family Medicine; Visit Provider General Practice
DX: J20.8 Acute bronchitis due to other specified organisms (principal); R05 Cough; R50.9 Fever, unspecified; R53.1 Weakness; G89.29 Other chronic pain; F32.9 Major depressive disorder, single episode, unspecified; J43.9 Emphysema, unspecified; R91.1 Solitary pulmonary nodule; F17.210 Nicotine dependence, cigarettes, uncomplicated; E78.5 Hyperlipidemia, unspecified; M48.02 Spinal stenosis, cervical region
CPT/HCPCS: 36415; 80053; 85652; 87040; 87637; 90686; 93005; 96361; 96365; 96366; 96368; 99217; 99222; 99291; U0003; 71045; 71046; 81003; 81015; 83605; 83880; 84484; 85025; 86140; 93010; 99219; G0378; J0456

== ENCOUNTER 2020-10-24 14:12 | Emergency (ER) | payer MEDICARE, MEDICAID, SELFPAY ==
[2020-10-24] VITALS (17 sets, daily range): BP systolic 140–165; BP diastolic 66–96; PULSE 82–102; RESP 14–26; TEMP 36.6–37.1; O2SAT 93–98
--- NOTE | 2020-10-24 14:14 | W.ED.GENAD ---
Discharge Plan Disposition Patient Disposition: HOME Condition: Good Discharge Details Clinical Impression: Aortic aneurysm, Chronic left hip pain Primary Care Provider: Carlos Nguyen ED Provider: Marry Rocha Home Meds and New Rx's Prescriptions: New diclofenac sodium [Voltaren] 1 % gel 4 g topical QID Qty: 150 RF: 0 lidocaine [Lidoderm] 5 % adhesive patch,medicated 1 patch topical DAILY Qty: 15 RF: 0 prednisone 20 mg tablet 40 mg PO DAILY Qty: 10 RF: 0 No Action gabapentin 600 mg tablet 600 mg PO TID 90 Days Qty: 270 RF: 3 (DME) Wheeled walker Qty: 1 RF: 0 etodolac 400 mg tablet 400 mg PO BID Qty: 180 RF: 3 metoprolol tartrate 25 mg Tablet 12.5 mg PO Q12H Qty: 60 RF: 0 escitalopram oxalate 20 mg tablet 20 mg PO DAILY RF: 0 amitriptyline 25 mg tablet 50 mg PO HS RF: 0 Discharge Instructions Instructions: Chronic Pain (ED) Additional Instructions: Use cane with ambulation, take a cane at the pharmacy Take 1 g of Tylenol every 8 hours with food Take the prednisone as prescribed Follow-up with the orthopedic doctor listed below You have an aneurysm in your belly and chest, you will need close outpatient follow-up regarding these findings, they will contact you, if you do not hear from them, My recommendation is to call the number if applied Referrals: [facility] [Outside] Jesus French MD [ [facility] STAFF PHYSICIAN] - Discharge Data Discharge Date/Time-TO BE ENTERED AT DEPARTURE: 10/24/20 17:29 Medical Decision Making <RONDA Bagley - Last Filed: 10/24/20 17:18> Patient is a pleasant 55-year-old gentleman brought in via EMS chief complaint of left hip pain. Shortly after arrival, were able to examine the patient clarify that is not in fact his left hip but rather the left lower aspect of his abdomen. Past medical history significant for chronic pain, depression, emphysema, hyperlipidemia, tobacco use disorder. Patient was seen here this month and admitted for possible pneumonia. Was determined this likely a viral source no antibiotics were indicated at that time. He states the pain has been persistent for approximately 2 weeks. Finds it worse with movement. He denies any change in his appetite. No nausea or vomiting. Denies any change in his bowel or bladder habits. Denies any hematuria, melena or hematochezia. He has not had pain like historically. He denies any previous abdominal surgeries. On exam, patient is resting comfortably. He did appear uncomfortable with movement from the EMS stretcher into the bed. Went to clear, normal cardiac exam. Abdomen is quite tender in the low left lower quadrant. No peritoneal findings. Range of motion of left hip is normal with no discomfort, no pain with axial loading. No pain with palpation over the iliac crest. No CVA tenderness. No pain to palpation of the back. Again, the patient had reported left hip pain initially. However, the exam is much more consistent with left lower quadrant pain. Consider diverticulitis. Denies any urinary symptoms or testicular penile pain. No penile discharge. This has been going on for 2 weeks. Pain is not of McBurney's point, no indication of appendicitis at this time. Abdominal exam is not consistent with surgical abdomen. Patient has 2+ distal pulses in BLE. As the pain is worse with movement also considered musculoskeletal source. Also considered other intra-abdominal cause, GI or urinary source. Plan to obtain labs and CT imaging. Discussed this plan with the patient who is in agreement. Labs reviewed with no significant abnormality noted. Contacted by imaging department. they were concerned that there was AAA. Will obtain CTA. Patients history and exam is not consistent with rupture but a rapidly enlarging AAA may be the source of his symptoms. Measured this myself at 5.2. Awaiting formal report. No previous abdominal imaging. At the end of my shift, care transitioned to Marry Best PA-C with imaging pending. Patient currently in imaging department. <RONDA Pool - Last Filed: 10/24/20 20:32> Case signed out to me by Char Gottlieb, physician health information assistant pending CTA chest, abdomen, pelvis, patient is noted to have both thoracic and iliac aneurysms, iliac aneurysm is 5.5 cm with a large mural thrombus, he is neurovascularly intact and I do not suspect that his pain is related to the aneurysm His vitals are stable Case was discussed with Dr. Jerome bernard, vascular surgeon at [facility] and they will see this patient in close follow-up He has reproducible left hip pain that is exacerbated with both position and evaluation and he is ambulatory with antalgic although steady gait There is no evidence of a septic joint clinically He is recommended to use a cane He is discharged with a small amount of prednisone, Voltaren gel, and Lidoderm patches He is given orthopedic referral He is also given vascular surgery referral HPI <RONDA Bagley - Last Filed: 10/24/20 17:18> General Mode of arrival: EMS. Date/Time Provider Initiated Documentation: 10/24/20 14:14. Limitations to Documentation: no limitations. Information obtained by: patient, EMS, RN notes reviewed and old records reviewed. History of Present Illness 65 year old M presents to the emergency department with the chief complaint of LLQ pain, described as severe, with intensity rated at 10. Quality is described as stabbing, and is localized to the abdomen. Patient reports no radiation. Patient started experiencing this week(s) (2) and it has been constant. Immobilization improves symptom(s), Movement worsens symptoms . Patient notes no other symptoms.. Patient did receive the following treatments prior to arrival, none Related Data Home Medications Medication Instructions Recorded Confirmed metoprolol tartrate 12.5 mg PO Q12H #60 tab 10/03/18 10/24/20 Wheeled walker #1 ea 04/18/19 04/18/19 gabapentin 600 mg tablet 600 mg PO TID 90 Days #270 tab-cap 04/18/19 10/24/20 etodolac 400 mg tablet 400 mg PO BID #180 tab-cap 12/08/19 10/24/20 amitriptyline 50 mg PO HS 10/06/20 10/24/20 escitalopram oxalate 20 mg PO DAILY 10/06/20 10/24/20 diclofenac sodium [Voltaren] 4 g TOPICAL QID #150 g 10/24/20 lidocaine [Lidoderm] 1 patch TOPICAL DAILY #15 ea 10/24/20 prednisone 40 mg PO DAILY #10 tab 10/24/20 Previous Rx's Medication Instructions Recorded metoprolol tartrate 12.5 mg PO Q12H #60 tab 10/03/18 Wheeled walker #1 ea 04/18/19 gabapentin 600 mg tablet 600 mg PO TID 90 Days #270 tab-cap 04/18/19 etodolac 400 mg tablet 400 mg PO BID #180 tab-cap 12/08/19 diclofenac sodium [Voltaren] 4 g TOPICAL QID #150 g 10/24/20 lidocaine [Lidoderm] 1 patch TOPICAL DAILY #15 ea 10/24/20 prednisone 40 mg PO DAILY #10 tab 10/24/20 Allergies Allergy/AdvReac Type Severity Reaction Status Date / Time tetanus and diphtheria AdvReac Intermediate severe Verified 10/06/20 14:50 toxoids muscle pain x 2 weeks after injection on 09/2012 General SORAYA: 3 Review of Systems <RONDA Bagley - Last Filed: 10/24/20 17:18> Constitutional Constitutional: Reports as per HPI, Denies chills, Denies fatigue, Denies fever(s) and Denies headache(s) ENT Ears, Nose, Mouth, and Throat: Denies headache(s) Cardiovascular Cardiovascular: Reports as per HPI, Denies chest pain and Denies dyspnea Respiratory Respiratory: Reports as per HPI, Denies cough and Denies dyspnea Gastrointestinal Gastrointestinal: Reports as per HPI Genitourinary Genitourinary: Denies system reviewed and no additional complaints, except as documented (patient denies any change in urinary habits) Musculoskeletal Musculoskeletal: Reports as per HPI and Denies back pain Integumentary/Breasts Skin/Breast: Reports as per HPI and Denies rash Neurologic Neurologic: Reports as per HPI and Denies headache(s) Endocrine Endocrine: Denies fatigue PFSH <RONDA Bagley - Last Filed: 10/24/20 17:18> Medical History (Updated 10/24/20 @ 17:03 by RONDA Pool) Ambulatory dysfunction Chronic pain hip, left Depressive disorder (09/23/05) DEPRESSION 2005 Emphysema lung Hyperlipidemia (09/03/97) GOAL LDL<100; LDL 200 PRIOR TO RX; RISK >20% (11/2005): RX ASA, CRESTOR, STOP SMOKING! 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 Diabetes Essential hypertension Stroke Father , surgical complicatio at age 56. No problems noted. Sister No problems noted. Sister No problems noted. Brother No problems noted. Brother No problems noted. Brother , Blood disease at age 64. No problems noted. Brother Essential hypertension Brother No problems noted. Social History Smoking/Tobacco Use Status: Current every day Tobacco Type: cigarettes Smoking risk assessment performed?: Yes Alcohol Intake: former Drug use: Never Substance use type: does not use Adopted: No Foster care: No Housing: apartment Number of Children: 1 current occupation: [employer] What type of physical activity do you participate in: walking Do you feel safe at home: Yes Do you feel safe in your relationship?: Yes Additional Social history: Patient is , with one daughter. He is a grandfather of 4. He has a 50 approximate pack-year history of smoking, but denies alcohol use. Exam <RONDA Bagley - Last Filed: 10/24/20 17:18> Const General: cooperative, healthy appearing, comfortable, no acute distress and well developed Nutritional Appearance: well nourished and overweight Orientation: alert and awake HENMT Head: normal to inspection Mouth: moist mucous membranes Resp Effort & Inspection: normal respiratory effort, able to speak in complete sentences and no respiratory distress Auscultation: clear to auscultation bilaterally, no rales, no rhonchi and no wheezes Cardio Rate: regular rate Rhythm: regular rhythm Heart Sounds: S1 normal and S2 normal GI Inspection: normal to inspection, distended, obesity, no visible herniation and no visible pulsation Palpation: soft, no hepatosplenomegaly, firm (diffuse, patient states that his abdomen is typically round and firm), no guarding, no hepatosplenomegaly, no pulsatile masses, not rigid, no splenomegaly, tender in the LLQ and No ascites Percussion: normal to percussion Auscultation: normal bowel sounds Back/Spine/Pelvis Back: no CVA tenderness Thoracic/Lumbar Spine: thoracic and lumbar spine normal to inspection, No thoracic spinal tenderness, No lumbar spinal tenderness and No straight leg raise positive Pelvis: no pain with anterior-posterior compression and no pain with lateral compression Skin General skin exam: no rashes or lesions noted Trauma: no lacerations or abrasions Neuro General: patient alert and patient awake Cognition: normal cognition Speech: speech normal Gait: normal gait Extrem General: normal to inspection, capillary refill normal, no pedal edema, no calf tenderness, normal gait and other (2+ distal pulses) Left lower extremity: normal to inspection, full ROM, normal capillary refill, no joint enlargement and hip/thigh Details: normal to inspection, normal ROM and other (no pain with axial loading); no tenderness, no swelling, no abrasions, no lacerations, no ecchymosis and no crepitus Psych Appearance: grossly normal and well kempt Mental Status: mental status grossly normal Speech and Movement: speech and movement normal Sign Out <RONDA Bagley - Last Filed: 10/24/20 17:18> Sign Out Data: Sign Out Comment: Care transitioned to Marry Rocha PA-C with imaging pending. Presenting for LLQ pain. Labs without significant abnormality. Initial CT reviewed by myself, concerned for aneurysm. Patient undergoing CTA now. Last updated by Char Collins PA at 10/24/20 15:51
--- NOTE | 2020-10-24 14:15 | DI.CT_ITS ---
EXAM: CT ABDOMEN PELVIS W CLINICAL HISTORY: LLQ pain. TECHNIQUE: Imaging Protocol: Axial computed tomography images with coronal and sagittal reformatted images were created and reviewed CONTRAST MATERIAL: Intravenous: Omnipaque 100cc Oral: None COMPARISON: No exams were available for comparison FINDINGS: VISUALIZED LUNG BASES: 3 millimeter noncalcified nodule in the left lung base just above the hemidiap hragm.. No pleural effusions. ABDOMEN: There is no ascites. LIVER: Liver is hypodense implying steatosis. There is a benign cyst in the left hepatic lobe which measures 3.8 cm wide by 3.2 cm AP. No other focal hepatic findings. GALLBLADDER/BILIARY: No obvious gallbladder pathology. CBD is not dilated. PANCREAS: No evidence of pancreatic mass nor dilatation of the pancreatic duct. SPLEEN: Spleen is not enlarged. No obvious intrasplenic lesions. Splenic and portal veins are paten t. ADRENALS: There are no significant adrenal masses. KIDNEYS:Right kidney unremarkable. The left kidney is somewhat atrophic and contains a nonobstructiv e 5 millimeter calculus in its lower pole. There is no hydronephrosis nor hydroureter. There is, ho wever, a diverticulum in the left side of the urinary bladder at the level of the ureterovesical junc tion which measures 2 x 1.9 cm. There are no calculi at this level. No obvious ureterocele. No oth er findings in the urinary bladder.. ABDOMINAL AORTA: The abdominal aorta is atherosclerotic. There is a fusiform infrarenal abdominal ao rtic aneurysm just above the inferior mesenteric artery. The abdominal aorta exhibits diameter of 3 cm at this level. Arterial megaly continues into the common iliac arteries and there is indeed an im pressive nonruptured aneurysm in the right common iliac artery which exhibits diameter 5 cm and exten ds for a distance of 5.8 cm to the junction of the common and external iliac arteries. There is no c ontinuation of the aneurysm into the right external iliac artery. The diameter of the left common il iac artery is 1.9cm. LYMPH NODES:There is no retroperitineal nor paraaortic adenopathy. ABDOMINAL WALL/GI: No evidence of significant anterior abdominal wall hernia. No bowel obstruction. PELVIS: GI: No evidence of appendicitis.Sigmoid diverticuli but no evidence of acute diverticulitis. LYMPH NODES: There is no intrapelvic nor inguinal adenopathy. REPRODUCTIVE: Prostate size upper normal. URINARY BLADDER: As above OSSEOUS: No significant osseous lesions. IMPRESSION: 1. There is a benign 3.8 centimetres solitary cyst in the liver. No neoplastic appearing focal findi ngs in the liver. Mild steatosis. 2. Atherosclerotic abdominal aorta and iliac arteries with an impressive 5 cm diameter aneurysm of th e entire length of the right common iliac artery (without involvement of the right external iliac art marcella). The diameter of the left common iliac artery is 1.9 cm. There is also fusiform infrarenal abd ominal aortic aneurysm with diameter of 3 cm. 3. There is scarring and atrophy of the left kidney with a nonobstructing solitary calculus in its lo wer pole. Similar findings not seen in the right kidney. 4. There is a solitary left-sided diverticulum measuring 2 x 2 centimetres in the urinary bladder, th is adjacent to the left ureterovesical junction. There are no obvious ear masses nor calculi within the urinary bladder. No significant osseous lesions evident. RADIATION DOSE DELIVERED: 1,234.45mGy.cm Total DLP DATA REPOSITORY: All CT scans at this facility are submitted to the National Radiology Data Registry (NRDR) Dose Index Registry (DIR) with the [employer] (ACR). RADIATION OPTIMIZATION: All CT scans at this facility use at least one of these dose optimization te chniques: automated exposure control; mA and/or kV adjustment per patient size (includes targeted exa ms where dose is matched to clinical indication); or iterative reconstruction.
[2020-10-24] MEDS: Lactated Ringers 1,000 ML 500 ML IV (14:40)
[2020-10-24 14:45] LABS: Abs Immature Grans 0.06 10^3/uL (0.0-0.06); Absolute Basophil Count 0.08 10^3/uL (0.0-0.2); Absolute Eosinophil Count 0.16 10^3/uL (0.0-0.7); Absolute Lymphocyte Count 2.14 10^3/uL (1.2-3.4); Absolute Monocyte Count 0.61 10^3/uL (0.1-0.8); Absolute Neutrophil Count 6.53 10^3/uL (1.2-6.7); Basophils % 0.8; Eosinophils % 1.7; HCT 43.6 % (40.0-50.0); HGB 14.4 g/dL (13.5-17.5); Immature Grans % 0.6; Lymphocytes % 22.3; MCH 31.9 pg (27.0-33.0); MCV 96.7 fL (80-95); MPV 10.7 fL (8.0-11.0); Monocytes % 6.4; Neutrophils % 68.2; Nucleated RBC 0 %; Platelet Count 162 10^3/uL (130-400); RBC 4.51 10^6/uL (4.36-5.78); RDW 13.8 % (11.8-14.1); RDW-SD 49.2 fL; WBC 9.58 10^3/uL (4.4-10.8)
[2020-10-24 14:59] LABS: ALT 51 U/L (16-63); AST 24 U/L (15-37); Albumin 3.6 g/dL (3.4-5.0); Alkaline Phosphatase 73 U/L (46-116); Anion Gap 9.3 mmol/L (3-11); BUN 15 mg/dL (7-18); Bilirubin, Total 0.7 mg/dL (0.2-1.0); CO2 27.7 mmol/L (21.0-32.0); CREATININE 1.3 mg/dL (0.70-1.30); Calcium 9.2 mg/dL (8.5-10.1); Chloride 107 mmol/L (98-107); Glucose 81 mg/dL (74-106); Magnesium 1.9 mg/dL (1.8-2.4); Potassium 3.8 mmol/L (3.5-5.1); Sodium 144 mmol/L (136-145); Total Protein 7.1 g/dL (6.4-8.2)
[2020-10-24 15:13] LABS: Bilirubin Large (Negative); Blood Negative (Negative); Clarity Clear (Clear); Glucose Negative (Negative); Ketones Negative (Negative); Leukocyte Esterase Negative (Negative); Nitrite Negative (Negative); Specific Gravity 1.025 (1.005-1.025); Urobilinogen 0.2 EU/dL (Up TO 0.2)
--- NOTE | 2020-10-24 15:30 | DI.CT_ITS ---
EXAM: CT THORAX ABDOMEN CTA CLINICAL HISTORY: aneurysm noted on CT of abdomen, pt with LLQ pain. TECHNIQUE: Imaging Protocol: Axial computed tomography images with coronal and sagittal reformatted images were created and reviewed CONTRAST MATERIAL: Intravenous: Omnipaque 350 Contrast volume:100 ml Oral: None COMPARISON: CT CT ABDOMEN PELVIS W from 10/24/2020 FINDINGS: CHEST: LUNGS: No infiltrates nor pleural effusions. No ominous pulmonary nodules. No significant focal fin dings in the trachea and mainstem bronchi.. MEDIASTINUM: There is no hilar nor mediastinal adenopathy. Visualized thyroid unremarkable. CARDIAC: Heart size is normal. There is no pericardial effusion. AORTA: Caliber of the ascending thoracic aorta is within normal limits.There is no evidence of aortic dissection. Diameter of the aortic arch is upper normal. Diameter of the descending thoracic aorta is slightly prominent, averaging 2.9 cm. Diameter of the proximal abdominal aorta at the level of the celiac and superior mesenteric artery ta keoff points is within normal limits and there is no significant plaque at these levels nor at the or igin of the renal arteries. The inferior mesenteric artery is also patent. However, there is athero sclerotic involvement and mild fusiform dilatation of the infrarenal abdominal aorta. Maximum diamet er 3 cm. There is impressive aneurysm of the right common iliac artery commencing just below the origin and ex tending the entire length of right common iliac artery exhibiting maximum diameter of 5 cm but withou t evidence of aneurysmal dilatation of the ipsilateral external iliac artery nor of the internal gustavo c artery. There is abundant mural thrombus of the aneurysm. No leak at this time. The opposite-lef t common iliac artery also exhibits an element of arterial megaly, less so, but with mild dilatation distally with diameter of 1.9 cm. The left external iliac artery appears unremarkable. The left int ernal iliac artery exhibits some arterial megaly but no fusiform nor saccular aneurysm. ABDOMEN: There is no ascites. LIVER: Steatosis. 3.8 centimeter benign cysts. GALLBLADDER/BILIARY: No obvious gallbladder pathology. CBD is not dilated. PANCREAS: No evidence of pancreatic mass nor dilatation of the pancreatic duct. SPLEEN: Spleen is not enlarged. There are no intrasplenic lesions. Splenic and portal veins are loo nt. ADRENALS: There are no significant adrenal masses. KIDNEYS: Left kidney scarring within nonobstructive 5 millimeter calculus at its lower pole. Right k idney appears unremarkable. There is a 2 centimeter Hutch diverticulum on the left side of the urina ry bladder adjacent to the left ureterovesical junction. No calculi with in this Hutch diverticulum. Remainder of the urinary bladder appears unremarkable.. ABDOMINAL AORTA: As above. LYMPH NODES: There is no retroperitoneal nor para-aortic adenopathy. No obvious mesenteric masses. ABDOMINAL WALL/GI: No evidence of significant anterior abdominal wall hernia. No bowel obstruction. PELVIS: LYMPH NODES: There is no intrapelvic nor inguinal adenopathy. GI: No evidence of appendicitis.No evidence of sigmoid diverticulitis. URINARY BLADDER: 2 centimeter left-sided diverticulum as above. REPRODUCTIVE: Prostate size upper normal. OSSEOUS: No significant osseous lesions. IMPRESSION: 1. There is a 5 cm diameter aneurysm of almost the entire length of the right common iliac artery, st arting just beyond its origin and extending to the junction of the right common and external iliac ar teries but without extension into the external iliac artery. There is abundant mural thrombus. No d issection flap. No evidence of rupture at this time. 2. The opposite-left common iliac artery exhibits maximum diameter of 1.9 cm, also prominent. 3. Atherosclerotic inferior abdominal aorta with 3 centimeter fusiform aneurysm. There is, however, no significant atherosclerotic narrowing of the mesenteric artery origins and the inferior mesenteric artery is also patent. No atherosclerotic narrowing at the origin of the right renal artery. Left renal arteries are small as the left kidney is somewhat atrophic and contains a calculus. 4. 2 cm left-sided bladder diverticulum at the ureterovesical junction noted. No calculi nor mass is evident. RADIATION DOSE DELIVERED: 979.85mGy.cm Total DLP DATA REPOSITORY: All CT scans at this facility are submitted to the National Radiology Data Registry (NRDR) Dose Index Registry (DIR) with the [employer] (ACR). RADIATION OPTIMIZATION: All CT scans at this facility use at least one of these dose optimization te chniques: automated exposure control; mA and/or kV adjustment per patient size (includes targeted exa ms where dose is matched to clinical indication); or iterative reconstruction.
[2020-10-24] MEDS: Omnipaque 350 MG/ML 100 ML BTL IJ ×2 (15:55→15:56)
[2020-10-24] MEDS: Normal Saline Flush 10 ML SYR IVP (15:56)
[2020-10-24] MEDS: Normal Saline - Diluent 50 ML VIAL IV (15:56)
--- NOTE | 2020-10-24 16:00 | DI.VRAD_ITS ---
PROCEDURE INFORMATION: Exam: CT Abdomen And Pelvis With Contrast Exam date and time: 10/24/2020 3:34 PM Age: 65 years old Clinical indication: Abdominal pain; Other: Llq TECHNIQUE: Imaging protocol: Computed tomography of the abdomen and pelvis with contrast. COMPARISON: CR XR hip LT complete AP pelvis 10/15/2018 11:59 AM FINDINGS: Mediastinal space: Small esophageal hiatal hernia. Liver: Fatty infiltration of the liver. 3.8 cm lesion of uniform water density in the left hepatic lobe consistent with a benign cyst. Gallbladder and bile ducts: Normal. No calcified stones. No ductal dilation. Pancreas: Normal. No ductal dilation. Spleen: Normal. No splenomegaly. Adrenal glands: Normal. No mass. Kidneys and ureters: Cortical scarring and atrophy of the left kidney. Nonobstructing 6 mm stone in the left kidney. Stomach and bowel: Sigmoid diverticulosis without evidence of diverticulitis. Large amount of stool in the colon. Small esophageal hiatal hernia. Appendix: No evidence of appendicitis. Intraperitoneal space: Unremarkable. No free air. No significant fluid collection. Vasculature: Vascular calcifications. Aneurysm the right common iliac artery containing a large amount of mural thrombus. The aneurysm measures approximately 5.5 x 5.4 cm in AP and transverse dimensions and extending for approximately 6 cm in length.. Ectasias distal left common iliac artery which measures approximately 1.9 cm in diameter. Lymph nodes: Unremarkable. No enlarged lymph nodes. Urinary bladder: Mild degenerative arthritis in the spine and pelvis. Reproductive: Mild prostatic enlargement. Bones/joints: Approximately 2 cm bladder diverticulum arising from posterior bladder, at the ureterovesical junction. Soft tissues: Small bilateral fat containing inguinal hernias. IMPRESSION: 1. Left common iliac artery aneurysm containing a large amount of thrombus and measuring approximately 5.4 x 5.5 x 6 cm. 2. Cortical scarring and atrophy of left kidney with a nonobstructing stone. 3. 2 cm left posterior bladder diverticulum at the ureterovesical junction. 4. Sigmoid diverticulosis without evidence of diverticulitis. 5. Large amount of stool in the colon Dictated and Authenticated by: Chelsea Warren MD. Ordering:MELISSA Pardo MD
[2020-10-24] MEDS: HYDROcodone 5/Acetaminophen 325 TAB PO (16:24)
--- NOTE | 2020-10-24 16:39 | DI.VRAD_ITS ---
PROCEDURE INFORMATION: Exam: CT Angiography Chest With Contrast Exam date and time: 10/24/2020 3:46 PM Age: 65 years old Clinical indication: Abnormal findings; Other: Iliac anuerysm; Abnormal diagnostic imaging exam; Exam and body structure: CT abdomen pelvis TECHNIQUE: Imaging protocol: Computed tomographic angiography of the chest with contrast. 3D rendering (Not supervised by radiologist): MIP and/or 3D reconstructed images were created by the technologist. COMPARISON: CT Thorax^CHEST WO ROUTINE (Adult) 10/01/2018 11:37 AM FINDINGS: Pulmonary arteries: Normal. No pulmonary emboli. Aorta: Ascending thoracic aortic aneurysm measuring approximately 4 cm x 4 cm in AP and transverse dimensions. Lungs: 4 mm subpleural nodule in left lung base best seen axial series 4, image 47. Pleural spaces: Unremarkable. No pneumothorax. No pleural effusion. Heart: Unremarkable. No cardiomegaly. No pericardial effusion. Mediastinal space: Small esophageal hernia. Lymph nodes: Unremarkable. No enlarged lymph nodes. Bones/joints: Unremarkable. No acute fracture. Soft tissues: Unremarkable. Other findings: Minimal vascular calcifications. IMPRESSION: 1. 4 mm indeterminate pulmonary nodule left lung base. 2. 4 x 4 cm ascending thoracic aortic aneurysm. For patients at low risk (minimal or absent history of smoking and of other known risk factors), no routine follow-up is indicated. For patients at high risk (history of smoking or of other known risk factors), consider optional CT Chest at 12 months. (Reference: Derek) References: Derek Fuchs et al. Guidelines for Management of Incidental Pulmonary Nodules Detected on CT Images: From the Fleischner Society 2017. Radiology. 2017;284(1):228-243. PROCEDURE INFORMATION: Exam: CT Angiography Abdomen With Contrast Exam date and time: 10/24/2020 3:46 PM Age: 65 years old Clinical indication: Abnormal findings; Other: Iliac anuerysm; Abnormal diagnostic imaging exam; Exam and body structure: CT abdomen pelvis TECHNIQUE: Imaging protocol: Computed tomographic angiography images of the abdomen with intravenous contrast material. 3D rendering (Not supervised by radiologist): MIP and/or 3D reconstructed images were created by the technologist. COMPARISON: CT Thorax^CHEST WO ROUTINE (Adult) 10/01/2018 11:37 AM FINDINGS: Aorta: No aortic aneurysm. No aortic dissection. Diffuse atheromatous calcification. Celiac trunk and mesenteric arteries: No occlusion or significant stenosis. Renal arteries: Two left and single right renal artery. No evidence of renal artery stenosis. 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 The aneurysm extends for a length of approximately 6 cm and measures approximately point 5 x 5.4 cm in AP and transverse dimensions. Left iliac arteries: Ectatic left common iliac artery measuring approximately 2 cm in diameter. Liver: 3.8 cm benign cyst left hepatic lobe. Diffuse fatty infiltration of the liver. Gallbladder and bile ducts: Normal. No calcified stones. No ductal dilation. Pancreas: Normal. No ductal dilation. Spleen: Normal. No splenomegaly. Adrenals: Normal. No mass. Kidneys and ureters: Cortical scarring and atrophy of the left kidney with a nonobstructing 6 mm stone in lower pole. Stomach and bowel: Sigmoid diverticulosis without evidence of diverticulitis. Large amount of stool in the colon. Lymph nodes: Unremarkable. No enlarged lymph nodes. Intraperitoneal space: Unremarkable. No free air. No significant fluid collection. Bladder: 2 cm left posterior bladder diverticulum Bones/joints: Unremarkable. No acute fracture. No dislocation. Soft tissues: Unremarkable. Other findings: Diffuse atheromatous calcification. IMPRESSION: 1. 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 2. Ectatic left common iliac artery measuring 2 cm in diameter. 3. Patent single right and 2 left renal arteries. 4. Atrophic left kidney cortical scarring. 5. 2 cm left posterior bladder diverticulum at the ureterovesical junction Dictated and Authenticated by: Chelsea Warren MD. Ordering:MELISSA Pardo MD
[2020-10-24] MEDS: Ondansetron O.D.T. 4 MG TABEF PO (17:30)
[2020-10-24] MEDS: predniSONE 20 MG TAB 40 MG PO (17:30)
== END 2020-10-24 17:29 | disposition home or self-care (01) ==
PROVIDERS: Physician Assistant; Emergency Provider Physician Assistant; PCP Family Medicine
DX: I71.2 Thoracic aortic aneurysm, without rupture (principal); I72.3 Aneurysm of iliac artery; M25.552 Pain in left hip
CPT/HCPCS: 71275; 74175; 80053; 96360; 99285; 74177; 81003; 83735; 85025; 99284; J3490; J7512

== ENCOUNTER 2020-12-20 03:26 | Outpatient (CLI) | payer MEDICARE, MEDICAID, SELFPAY ==
[2020-12-20 14:44] LABS: VALPROIC ACID < 3 ug/mL (50-100)
[2020-12-20 15:03] LABS: ALT 58 U/L (16-63); AST 25 U/L (15-37); Albumin 3.7 g/dL (3.4-5.0); Alkaline Phosphatase 84 U/L (46-116); Anion Gap 9.2 mmol/L (3-11); BUN 14 mg/dL (7-18); Bilirubin, Total 0.6 mg/dL (0.2-1.0); CO2 27.8 mmol/L (21.0-32.0); CREATININE 1.3 mg/dL (0.70-1.30); Calcium 9.5 mg/dL (8.5-10.1); Chloride 106 mmol/L (98-107); Glucose 113 mg/dL (74-106); Potassium 3.9 mmol/L (3.5-5.1); Sodium 143 mmol/L (136-145); TSH 2.26 uIU/mL (0.36-3.74); Total Protein 7.6 g/dL (6.4-8.2)
== END 2020-12-20 03:27 | disposition home or self-care (01) ==
LOC: LBO 03:26
PROVIDERS: PCP Family Medicine; Visit Provider Nurse Practitioner Psychiatric/Mental Health
DX: F32.9 Major depressive disorder, single episode, unspecified (principal); Z79.899 Other long term (current) drug therapy; Z51.81 Encounter for therapeutic drug level monitoring
CPT/HCPCS: 36415; 80053; 80164; 84443

== ENCOUNTER 2020-12-23 02:42 | Outpatient (CLI) | payer MEDICARE, MEDICAID, SELFPAY ==
--- NOTE | 2020-12-23 07:42 | DI.RAD_ITS ---
EXAM: XR HIP LT COMPLETE AP PELVIS CLINICAL HISTORY: Chronic LT HIP PAIN, ?ARTHRITIS, M25.559. TECHNIQUE: 2D digital imaging was performed. COMPARISON: CR XR hip LT complete AP pelvis from 10/15/2018 FINDINGS: Compared to the prior study there are now endovascular stents in the iliac arteries, not previously p resent. There are no pelvic or hip fractures. Minimal of any significant degenerative changes in the hips. No osseous lesions. Bone density remains normal. IMPRESSION: DATA REPOSITORY: RADIATION DOSE DELIVERED:
== END 2020-12-23 03:02 ==
PROVIDERS: PCP Family Medicine; Visit Provider Family Medicine
DX: M25.552 Pain in left hip (principal)
CPT/HCPCS: 73502

== ENCOUNTER 2021-11-01 15:59 | Inpatient (IN) | payer MEDICARE, MEDICAID, SELFPAY ==
[2021-11-01] VITALS (163 sets, daily range): BP systolic 97–152; BP diastolic 57–114; PULSE 18–145; RESP 9–32; TEMP 36.9–37.4; O2SAT 91–98
--- NOTE | 2021-11-01 16:00 | RT.EKG_ITS ---
APPROVED REPORT Exam: Resting ECG Reason for Exam: dizzy Patient Location: E HR:83 bpm ECG Measurements Heart Rate 83 AXIS LA 191 P 48 QRSd 97 QRS 23 QT 380 T 71 QTc 447 Conclusion Sinus rhythm...normal P axis, V-rate 60- 99 normal sinus, normal axis, non ischemic
[2021-11-01 16:14] LABS: Abs Immature Grans 0.05 10^3/uL (0.0-0.06); Absolute Lymphocyte Count 1.96 10^3/uL (1.2-3.4); Absolute Monocyte Count 0.92 10^3/uL (0.1-0.8); Absolute Neutrophil Count 12.49 10^3/uL (1.2-6.7); Basophils % 0.6; HCT 50.1 % (40.0-50.0); HGB 16.7 g/dL (13.5-17.5); Immature Grans % 0.3; Lymphocytes % 12.4; MCH 31.5 pg (27.0-33.0); MCHC 33.3 % (32.0-36.0); MCV 94.4 fL (80-95); MPV 11.7 fL (8.0-11.0); Monocytes % 5.8; Neutrophils % 78.9; Nucleated RBC 0 %; Platelet Count 120 10^3/uL (130-400); RBC 5.31 10^6/uL (4.36-5.78); RDW 13.5 % (11.8-14.1); RDW-SD 47.3 fL; WBC 15.83 10^3/uL (4.4-10.8)
--- NOTE | 2021-11-01 16:15 | DI.CT_ITS ---
Exam(s) CT HEAD WO EXAM: CT HEAD WO CLINICAL HISTORY: Dizziness, Falls. TECHNIQUE: Imaging Protocol: Axial computed tomography images with coronal and sagittal reformatted images were created and reviewed COMPARISON: No exams were available for comparison FINDINGS: There appears to be mild generalized cerebral atrophy. No evidence of acute intracranial hemorrhage, mass effect, or midline shift. The orbital structures are unremarkable. The temporal bone structures appear intact. Calvarium: Normal. Visualized Paranasal sinuses/Mastoids: Clear. IMPRESSION: No evidence of acute intracranial process. RADIATION DOSE DELIVERED: 945.6mGy.cm Total DLP 945.6mGy.cm Total DLP !Error CTDIvol DATA REPOSITORY: All CT scans at this facility are submitted to the National Radiology Data Registry (NRDR) Dose Index Registry (DIR) with the [employer] (ACR). RADIATION OPTIMIZATION: All CT scans at this facility use at least one of these dose optimization te chniques: automated exposure control; mA and/or kV adjustment per patient size (includes targeted exa ms where dose is matched to clinical indication); or iterative reconstruction.
[2021-11-01 16:22] LABS: Absolute Basophil Count 0.09 10^3/uL (0.0-0.2); Absolute Eosinophil Count 0.32 10^3/uL (0.0-0.7)
[2021-11-01] MEDS: Normal Saline 1,000 ML 150 ML IV (16:23)
--- NOTE | 2021-11-01 16:23 | DI.RAD_ITS ---
Exam(s) XR CHEST 1V IN DI DEPT EXAM: XR CHEST 1V IN DI DEPT CLINICAL HISTORY: Falls, Wheezing. TECHNIQUE: 2D digital imaging was performed. COMPARISON: CR XR CHEST 2V PA LATERAL from 10/07/2020 FINDINGS: LUNGS: Clear. No pleural abnormality seen. HEART: Normal. MEDIASTINUM: Normal. OTHER FINDINGS: None. IMPRESSION: No acute pulmonary findings. DATA REPOSITORY: RADIATION DOSE DELIVERED: Total DLP
--- NOTE | 2021-11-01 16:25 | W.ED.GENAD ---
Discharge Plan Disposition Patient Disposition: [facility] INPATIENT Condition: Stable Discharge Details Clinical Impression: Acute UTI, Dehydration, Weakness Primary Care Provider: Carlos Nguyen ED Provider: Giulia Dumont Home Meds and New Rx's Prescriptions: No Action (DME) Wheeled walker Qty: 1 0RF Rx Instructions: As directed amitriptyline 25 mg tablet 50 mg PO HS Qty: 90 3RF Rx Instructions: for chronic neck pain and sleep aspirin 81 mg tablet,delayed release (DR/EC) 81 mg PO DAILY Qty: 90 3RF escitalopram oxalate 20 mg tablet 20 mg PO DAILY Qty: 90 3RF etodolac 400 mg tablet 400 mg PO BID Qty: 180 3RF Rx Instructions: Neck Arthritis gabapentin 600 mg tablet 600 mg PO TID 90 Days Qty: 270 3RF lisinopril 10 mg tablet 10 mg PO DAILY Qty: 90 3RF Rx Instructions: For blood pressure control pantoprazole 20 mg tablet,delayed release (DR/EC) 20 mg PO DAILY Qty: 90 3RF Rx Instructions: Take 20 mg daily once daily in the morning at least 30-60 minutes before first meal of the day rosuvastatin [Crestor] 20 mg tablet 20 mg PO DAILY Qty: 90 3RF acetaminophen 325 mg capsule 650 mg PO Q6H [id number] Medical Decision Making 66-year-old male with past medical history of hypertension hypertension, AAA, depression, migraine, GERD presents to the ER with complaint of dizziness and reportedly 2 falls prior to arrival today. Patient reports that he stood up and felt his legs going out became dizzy and fell forward and reported that that happened began shortly thereafter. He denies hitting his head or any loss of consciousness. He denies any chest pain or abdominal pain denies any nausea vomiting diarrhea however he did have a loose stool last week. Reports that this is been ongoing for months. He is unvaccinated for Covid and report that he does have have a cough is chronic for him. He reports that he is coughing up snot. He is alert oriented upon arrival with no obvious focal neuro. He does have a slight stutter intermittently. Per EMS BGL was 89. Also of note there is a dog tick crawling on the patient on my initial examination. Cardiac work-up ordered including serial troponins, urinalysis, chest x-ray and head CT. Will consider a Lyme panel. Normal saline 158-hour. Of note there is occasional PVCs noted on the monitor. Differential diagnosis includes but not limited to CVA, pneumonia, UTI, dehydration, coronary artery disease, Lyme disease. EKG was reviewed by Dr. Erlin Pond ER attending, please see his official report. CBC shows elevated white blood cell count 15.85, platelets 120, absolute neutrophils 12.49, monocyte 0.92, BUN 29 creatinine 1.8 GFR is 37 bilirubin is slightly elevated at 1.8, AST 41 ALT 91 initial troponin within normal limits. Serial troponin pending, urinalysis pending. Imaging protocol: XR of the chest. Views: 1 view. COMPARISON: CR XR CHEST 2V PA LATERAL 10/07/2020 7:44 AM FINDINGS: Lungs: Clear lungs. Pleural spaces: No sizable pleural effusion. No pneumothorax. Heart/Mediastinum: Cardiomediastinal silhouette is within normal limits. Bones/joints: No acute displaced fracture or dislocation. IMPRESSION: No acute cardiopulmonary process. Imaging protocol: Computed tomography of the head without contrast. FINDINGS: Brain: No evidence of acute infarct, acute hemorrhage, or intracranial mass. Cerebral ventricles: No hydrocephalus. Paranasal sinuses: Partially visualized small mucous retention cyst right maxillary sinus. Paranasal sinuses otherwise clear. Mastoid air cells: Mastoid air cells appear clear. Vasculature: Vascular calcifications. Bones/joints: No acute skull fracture Soft tissues: Unremarkable superficial soft tissues IMPRESSION: No acute intracranial findings. Patient still unable to urinate, bladder scan performed by property staff accountant which showed 450 cc in his bladder, she did do an in and out catheter specimen and did obtain tea colored urine which were sent to the lab. At this time I am concerned for possible dehydration which is contributing to patient's symptoms however I do want to rule out a UTI prior to discharge. I did discuss with patient's family the plan of care and that we are waiting to rule out UTI before discharge. She reports that patient will need transport home as she does not have transportation at this time. Urinalysis shows trace protein, 15 ketones, large blood, negative nitrite large bilirubin, urine urobilinogen 2.0, negative leukocytes, greater than 50 WBCs culture is pending at this time. Ceftriaxone 1 g ordered IV piggyback for possible UTI. Patient is still reporting weakness in his legs and is requesting to be admitted. Will call hospitalist. Spoke with Dr. Ferraro who is on for hospitalist regarding patient case and details. He agrees to accept patient for admission for UTI and dehydration. HPI General Mode of arrival: EMS. Date/Time Provider Initiated Documentation: 11/01/21 15:59. Limitations to Documentation: no limitations. Information obtained by: patient, EMS, RN notes reviewed and old records reviewed. HPI Narrative: 66-year-old male with past medical history of hypertension hypertension, AAA, depression, migraine, GERD presents to the ER with complaint of dizziness and reportedly 2 falls prior to arrival today. Patient reports that he stood up and felt his legs going out became dizzy and fell forward and reported that that happened began shortly thereafter. He denies hitting his head or any loss of consciousness. He denies any chest pain or abdominal pain denies any nausea vomiting diarrhea however he did have a loose stool last week. Reports that this is been ongoing for months. He is unvaccinated for Covid and report that he does have have a cough is chronic for him. He reports that he is coughing up snot. He is alert oriented upon arrival with no obvious focal neuro. He does have a slight stutter intermittently. Per EMS BGL was 89. Also of note there is a dog tick crawling on the patient on my initial examination. Related Data Home Medications Medication Instructions Recorded Confirmed Wheeled walker #1 ea 04/18/19 11/01/21 acetaminophen 325 mg capsule 650 mg PO Q6H PRN cap 12/15/20 11/01/21 amitriptyline 25 mg tablet 50 mg PO HS #90 tab 09/29/21 11/01/21 aspirin 81 mg tablet,delayed 81 mg PO DAILY #90 tab-cap 09/29/21 11/01/21 release escitalopram oxalate 20 mg tablet 20 mg PO DAILY #90 tab 09/29/21 11/01/21 etodolac 400 mg tablet 400 mg PO BID #180 tab-cap 09/29/21 11/01/21 gabapentin 600 mg tablet 600 mg PO TID 90 Days #270 tab-cap 09/29/21 11/01/21 lisinopril 10 mg tablet 10 mg PO DAILY #90 tab 09/29/21 11/01/21 pantoprazole 20 mg tablet,delayed 20 mg PO DAILY #90 tab-cap 09/29/21 11/01/21 release rosuvastatin 20 mg tablet (Crestor) 20 mg PO DAILY #90 tab 09/29/21 11/01/21 Previous Rx's Medication Instructions Recorded Wheeled walker #1 ea 04/18/19 amitriptyline 25 mg tablet 50 mg PO HS #90 tab 09/29/21 aspirin 81 mg tablet,delayed 81 mg PO DAILY #90 tab-cap 09/29/21 release escitalopram oxalate 20 mg tablet 20 mg PO DAILY #90 tab 09/29/21 etodolac 400 mg tablet 400 mg PO BID #180 tab-cap 09/29/21 gabapentin 600 mg tablet 600 mg PO TID 90 Days #270 tab-cap 09/29/21 lisinopril 10 mg tablet 10 mg PO DAILY #90 tab 09/29/21 pantoprazole 20 mg tablet,delayed 20 mg PO DAILY #90 tab-cap 09/29/21 release rosuvastatin 20 mg tablet (Crestor) 20 mg PO DAILY #90 tab 09/29/21 Allergies Allergy/AdvReac Type Severity Reaction Status Date / Time tetanus and diphtheria AdvReac Intermediate severe Verified 11/01/21 16:08 toxoids muscle pain x 2 weeks after injection on 09/2012 General Stated Complaint: GenMedical SORAYA: 3 Review of Systems All systems reviewed & are unremarkable except as noted in HPI and below Constitutional Constitutional: Reports as per HPI, Reports frequent falls, Reports lethargy and Reports weakness Cardiovascular Cardiovascular: Denies chest pain and Reports lightheadedness Respiratory Respiratory: Reports change in phlegm color and Reports cough Gastrointestinal Gastrointestinal: Denies abdominal pain, Reports loose stools, Denies nausea and Denies vomiting Neurologic Neurologic: Reports frequent falls and Reports weakness [facility] All Active Problems (Updated 11/01/21 @ 21:04 by Giulia Dumont) Acute UTI (Acute) Dehydration (Acute) Weakness (Acute) Onychogryphosis (Acute) Essential hypertension (Acute) Learning disability (Acute) 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 done [place] [facility] [place]/endograft AAA (abdominal aortic aneurysm) (Acute) Depressive disorder (Chronic 09/23/05) DEPRESSION 2005 Ambulatory dysfunction (Acute) Chronic pain (Chronic) hip, left Emphysema lung (Acute) Pulmonary nodule (Chronic) Tobacco use disorder, moderate, dependence (Chronic 09/23/05) CHRONIC SMOKER <2006; 1 PPD Spinal stenosis in cervical region (Chronic 01/01/90) NECK PAIN, 01/1990 DR COBURN C-6 INTO L ARM; neurontin for neuropathic pain 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 Generalized anxiety disorder (Acute 01/02/12) fluoxetine since at least 2005 Gastroesophageal reflux disease (Acute 04/10/17) Medical History Chronic left hip pain Surgical History History of knee surgery Family History Mother , stroke at age 70. Diabetes Essential hypertension Stroke Father , surgical complicatio at age 56. No problems noted. Sister No problems noted. Sister No problems noted. Brother No problems noted. Brother No problems noted. Brother , Blood disease at age 64. No problems noted. Brother Essential hypertension Brother No problems noted. Social History Smoking/Tobacco Use Status: Current every day Tobacco Type: cigarettes Smoking risk assessment performed?: Yes Alcohol Intake: former Drug use: Never Substance use type: does not use Adopted: No Foster care: No Housing: apartment Number of Children: 1 current occupation: [employer] What type of physical activity do you participate in: walking Do you feel safe at home: Yes Do you feel safe in your relationship?: Yes Additional Social history: Patient is , with one daughter. He is a grandfather of 4. He has a 50 approximate pack-year history of smoking, but denies alcohol use. Exam Narrative Exam Narrative: Constitutional: Alert and oriented x3. Appears stated age. Obese body habitus. Head: Normocephalic, no trauma. Eyes: Pupils PERRL, Red reflex noted, EOM's intact. Eyelids symmetrical without lesions, discharge, or swelling. ENT: Bilateral TM's WNL, External ear normal to inspection, no mastoid TTP, swelling, or erythema, Nasal turbinates WNL, no nasal discharge. Normal dentition, Posterior pharynx WNL, no exudate. Dry mucous membranes. Chest: RRR, Normal S1, S2, distal pulses intact. Resp: Mild scattered expiratory wheezes all recinos. Abdomen: Soft, non-distended, Normoactive bowel sounds all 4 quads. Nontender to palpation al 4 quadrants, Musculoskeletal:Unable to assess gait, 4/5 strength to all four extremities. Skin: No suspicious rashes or lesions. Capillary refill less than 2 sec. Neurologic: Cranial nerves II-XII intact. Alert and oriented x 3. Intermittant stutter noted. Motor: No deficits noted. Sensory: Intact bilaterally all 4 extremities. Reflexes: DTR's intact bilaterally.. No foot drop no pronator drift noted carpenter packing are 5+ bilaterally and equal. Sensation equal. Intact dorsiflexion and pedal flexion. Hematologic/Lymphatic: No ecchymosis, no lymphadenopathy. Course Vital Signs Vital signs: Vital Signs Temperature 37.4 C 11/01/21 16:02 Pulse 88 11/01/21 16:02 Respiratory Rate 20 11/01/21 16:02 Blood Pressure 119/78 11/01/21 16:02 Pulse Oximetry 96 11/01/21 16:02 Temperature 37.4 C 11/01/21 16:02 Temperature Source Skin 11/01/21 16:02 Pulse 88 11/01/21 16:02 Respiratory Rate 20 11/01/21 16:02 Respiratory Effort 11/01/21 16:02 Blood Pressure 119/78 11/01/21 16:02 Blood Pressure Position Supine 11/01/21 16:02 Pulse Oximetry 96 11/01/21 16:02 Oxygen Delivery Method Room Air 11/01/21 16:02 Oxygen Flow Rate 0 11/01/21 16:02 Pain Level 0 11/01/21 16:02 Lab/Test Results Lab/Test Results: Laboratory Tests Range/Units 11/01/21 16:02 WBC (4.4-10.8) 10^3/uL 15.83 H RBC (4.36-5.78) 10^6/uL 5.31 Hgb (13.5-17.5) g/dL 16.7 Hct (40.0-50.0) % 50.1 H MCV (80-95) fL 94.4 MCH (27.0-33.0) pg 31.5 MCHC (32.0-36.0) % 33.3 RDW (11.8-14.1) % 13.5 Plt Count (130-400) 10^3/uL 120 L MPV (8.0-11.0) fL 11.7 H Immature Gran % 0.3 Neutrophils % 78.9 Lymphocytes % 12.4 Monocytes % 5.8 Eosinophils % 2.0 Basophils % 0.6 Nucleated RBC % % 0 Absolute Neutrophils (1.2-6.7) 10^3/uL 12.49 H Absolute Lymphocytes (1.2-3.4) 10^3/uL 1.96 Absolute Monocytes (0.1-0.8) 10^3/uL 0.92 H Absolute Eosinophils (0.0-0.7) 10^3/uL 0.32 Absolute Basophils (0.0-0.2) 10^3/uL 0.09
[2021-11-01 16:35] LABS: ALT 91 U/L (16-63); AST 41 U/L (15-37); Albumin 4.3 g/dL (3.4-5.0); Alkaline Phosphatase 95 U/L (46-116); Anion Gap 12.8 mmol/L (3-11); BUN 29 mg/dL (7-18); Bilirubin, Total 1.8 mg/dL (0.2-1.0); CO2 23.2 mmol/L (21.0-32.0); CREATININE 1.8 mg/dL (0.70-1.30); Calcium 9.1 mg/dL (8.5-10.1); Chloride 105 mmol/L (98-107); Estimated GFR 37.94 (mL/min/1.73m2); Glucose 89 mg/dL (74-106); Magnesium 2.4 mg/dL (1.8-2.4); Potassium 3.8 mmol/L (3.5-5.1); Sodium 141 mmol/L (136-145); Total Protein 7.8 g/dL (6.4-8.2); Troponin I < 50 ng/L (<or=60)
[2021-11-01] MEDS: Inhaler, Assist Device 1 EACH MC (16:39)
[2021-11-01] MEDS: Albuterol HFA 8 GM 60 PUFF INH IH (16:40)
[2021-11-01] MEDS: Normal Saline 500 ML IV (16:50)
--- NOTE | 2021-11-01 17:57 | DI.VRAD_ITS ---
PROCEDURE INFORMATION: Exam: XR Chest Exam date and time: 11/01/2021 5:23 PM Age: 66 years old Clinical indication: Injury or trauma; Fall; Wheezing; Blunt trauma (contusions or hematomas); Additional info: Fall, wheezing TECHNIQUE: Imaging protocol: XR of the chest. Views: 1 view. COMPARISON: CR XR CHEST 2V PA LATERAL 10/07/2020 7:44 AM FINDINGS: Lungs: Clear lungs. Pleural spaces: No sizable pleural effusion. No pneumothorax. Heart/Mediastinum: Cardiomediastinal silhouette is within normal limits. Bones/joints: No acute displaced fracture or dislocation. IMPRESSION: No acute cardiopulmonary process. Dictated and Authenticated by: Donell Byrne MD. Ordering:RENZO Platt MD
[2021-11-01 18:06] LABS: Source Nasal/Nares
--- NOTE | 2021-11-01 18:09 | DI.VRAD_ITS ---
PROCEDURE INFORMATION: Exam: CT Head Without Contrast Exam date and time: 11/01/2021 4:25 PM Age: 66 years old Clinical indication: Injury or trauma; Fall; Concussion/head injury; Consciousness not specified; Injury date: 11/01/21 TECHNIQUE: Imaging protocol: Computed tomography of the head without contrast. Radiation optimization: All CT scans at this facility use at least one of these dose optimization techniques: automated exposure control; mA and/or kV adjustment per patient size (includes targeted exams where dose is matched to clinical indication); or iterative reconstruction. COMPARISON: No relevant images were readily available for comparison purposes. FINDINGS: Brain: No evidence of acute infarct, acute hemorrhage, or intracranial mass. Cerebral ventricles: No hydrocephalus. Paranasal sinuses: Partially visualized small mucous retention cyst right maxillary sinus. Paranasal sinuses otherwise clear. Mastoid air cells: Mastoid air cells appear clear. Vasculature: Vascular calcifications. Bones/joints: No acute skull fracture Soft tissues: Unremarkable superficial soft tissues IMPRESSION: No acute intracranial findings. Dictated and Authenticated by: Donell Byrne MD. Ordering:RENZO Platt MD
[2021-11-01 19:21] LABS: Troponin I < 50 ng/L (<or=60)
--- NOTE | 2021-11-01 19:54 | NUR.NOTE ---
Nursing Note: Pt attempted to urinate, but could not. MINE SAFETY MANAGER notified. NS now W/O and pt given more juice.
[2021-11-01 20:32] LABS: Bilirubin Large (Negative); Blood Large (Negative); Clarity Sl Cloudy (Clear); Glucose Negative (Negative); Ketones 15 mg/dL (Negative); Leukocyte Esterase Negative (Negative); Nitrite Negative (Negative); Specific Gravity >= 1.030 (1.005-1.025)
[2021-11-01 20:41] LABS: WBC >50 HPF (0-5)
[2021-11-01 20:42] LABS: C & S Indicated? Yes
[2021-11-01] MEDS: cefTRIAXone 1 GM/50 ML BAG IVPB (21:07)
[2021-11-01 22:51] LABS: COVID-19 PCR Negative (Negative)
--- NOTE | 2021-11-01 23:52 | HPE_ITS ---
Date of service: 11/01/21 Time of Service: 23:52 Assessment and Plan Assessment and plan (1) Acute UTI: Status: Acute Assessment and plan: Patient has large amount leukocytes and red blood cells in his urine suggestive of UTI. Urine cultures and blood cultures have been obtained. Continue ceftriaxone 1 g IV every 24 hours. Check renal ultrasound the morning to evaluate for pyelonephritis versus hydronephrosis as a cause for his EFRAÍN. (2) Dehydration: Status: Acute Assessment and plan: Unclear as the etiology of his acute dehydration. Denies any nausea or vomiting or diarrhea. Yet his BUN and creatinine are suggestive of prerenal azotemia and dehydration and his specific gravity also is consistent with dehydration. Does not appear that he is taking any diuretics. He does take lisinopril daily and he is also taken he had a D.O.A.C. Both of these should be held due to his EFRAÍN. (3) Prerenal azotemia: Status: Acute Assessment and plan: Presumption is that his acute kidney injury secondary to dehydration and prerenal azotemia. We will hydrate him overnight and repeat his BMP in the morning. We will also get an ultrasound of his kidneys and bladder in the [facility] (4) Acute kidney injury (nontraumatic): Status: Acute Assessment and plan: secondary to prerenal azotemia; hydrate and repeat BMP in the a.m.; check renal US to rule obstruction (5) Weakness: Status: Acute Assessment and plan: Unclear how much of his weakness is chronic and how much is acute. From hearing his statement of it it sounds like this been going on for months and he uses a walker to get around. However I think the acute lightheadedness and the falls today were secondary to dehydration and orthostasis. We will withhold his antihypertensives and hydrate him overnight and repeat his labs in the morning and monitor his orthostatic vitals. We will also get physical therapy to evaluate his gait stability (6) Essential hypertension: Status: Acute Assessment and plan: Withhold lisinopril for now until he is adequately rehydrated and his renal fxn has returned to normal (7) Tick bite: Status: Acute Assessment and plan: patient w/ exposure to dog tick; per the ER provider, this did not look like a deer tick. nevertheless, a tick panel was ordered. I will continue on doxycycline prophylactically History of Present Illness History of Present Illness Chief Complaint: weakness, UTI Narrative: 66-year-old male with a past medical history of essential hypertension, AAA, depression, migraines, GERD, depression, cervical spinal stenosis presented to the emergency department with complaints of weakness in his legs giving out. Patient states this is been going on for several months but today he was more weak than usual. He gets around with use of a walker but today was feeling lightheaded and had 2 falls prior to arrival. Denies loss of consciousness and denies any associated shortness of breath or chest pain or abdominal pain nausea or vomiting. Does report seeing his primary care provider today and was told that he had a urinary tract infection and was sent to the emergency department. Patient is unvaccinated for COVID-19. Does have a chronic cough but denies a fever or rigors. Blood glucose prior to arrival was 89. The PA who was attending to him in the emergency department noted that he had a dog tick crawling on him. Lyme panel was ordered. The ED personnel did a work-up including routine labs including CBC CMP troponins urinalysis and order chest x- ray CT scan of the head and added a tick panel. Patient was given a bolus of IV fluids. Results of that work-up suggest that he had an acute urinary tract infection with a leukocytosis of 15,800, urinalysis that showed large amount of blood and large amount of white cells with greater than 50 white cells per high-powered field. He was also noted to be dehydrated with a specific gravity greater than 1.030 with trace of protein and 15 mg/dL ketones. CMP showed an elevated BUN 29 creatinine 1.8 with an anion gap of 12.8 with a carbon dioxide level 23 no other electrolyte abnormalities were found. Troponin I levels were normal at less than 50x2 sets. Transaminases were mildly elevated with an AST of 41 and ALT of 91 and a total bilirubin of 1.8. Noncontrast CT scan of the head showed no acute intracranial findings. Chest x-ray showed no acute cardiopulmonary process. EKG demonstrated normal sinus rhythm with no acute ST elevation. He had some nonspecific T wave abnormality in aVL and nonspecific ST changes in V5 V6. Patient was noted to have frequent PVCs on monitor but these were not picked up on his EKG. Patient was treated with IV fluids he was given a liter of normal saline emergency department and was given 1 g of Rocephin. Blood cultures and urine cultures were sent. He was noted to have a residual of 350 mL in his bladder and was straight cathed for the same. Urine was noted to be dark tea colored. Patient is being admitted for generalized weakness UTI rule out urosepsis and dehydration. Review of Systems All systems reviewed & are unremarkable except as noted in HPI and below Constitutional Constitutional: Reports fatigue, Denies fever(s), Reports frequent falls and Reports weakness ENT Ears, Nose, Mouth, and Throat: Reports system reviewed and no additional complaints, except as documented Cardiovascular Cardiovascular: Denies chest pain, Denies palpitations, Denies dyspnea and Denies dyspnea on exertion Respiratory Respiratory: Denies dyspnea and Denies dyspnea on exertion Gastrointestinal Gastrointestinal: Reports system reviewed and no additional complaints, except as documented Genitourinary Genitourinary: Reports as per HPI, Reports dysuria, Reports urinary frequency and Reports urinary urgency Musculoskeletal Musculoskeletal: Reports muscle weakness Integumentary/Breasts Skin/Breast: Reports system reviewed and no additional complaints, except as documented Neurologic Neurologic: Reports system reviewed and no additional complaints, except as documented, Reports frequent falls and Reports weakness Endocrine Endocrine: Reports system reviewed and no additional complaints, except as documented, Reports fatigue and Denies palpitations PFSH All Active Problems (Updated 11/02/21 @ 00:37 by Anam Ferraro) Tick bite (Acute) Acute kidney injury (nontraumatic) (Acute) Prerenal azotemia (Acute) Acute UTI (Acute) Dehydration (Acute) Weakness (Acute) Onychogryphosis (Acute) Essential hypertension (Acute) Learning disability (Acute) 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 AAA (abdominal aortic aneurysm) (Acute) Depressive disorder (Chronic 09/23/05) DEPRESSION 2006 Ambulatory dysfunction (Acute) Chronic pain (Chronic) hip, left Emphysema lung (Acute) Pulmonary nodule (Chronic) Tobacco use disorder, moderate, dependence (Chronic 09/23/05) CHRONIC SMOKER <2006; 1 PPD Spinal stenosis in cervical region (Chronic 01/01/90) NECK PAIN, 01/1990 DR COBURN C-6 INTO L ARM; neurontin for neuropathic pain 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 Generalized anxiety disorder (Acute 01/02/12) fluoxetine since at least 2005 Gastroesophageal reflux disease (Acute 04/10/17) Medical History Chronic left hip pain Surgical History History of knee surgery Family History Mother , stroke at age 70. Diabetes Essential hypertension Stroke Father , surgical complicatio at age 56. No problems noted. Sister No problems noted. Sister No problems noted. Brother No problems noted. Brother No problems noted. Brother , Blood disease at age 64. No problems noted. Brother Essential hypertension Brother No problems noted. Social History Smoking/Tobacco Use Status: Current every day Tobacco Type: cigarettes Smoking risk assessment performed?: Yes Alcohol Intake: former Drug use: Never Substance use type: does not use Adopted: No Foster care: No Housing: apartment Number of Children: 1 current occupation: [employer] What type of physical activity do you participate in: walking Do you feel safe at home: Yes Do you feel safe in your relationship?: Yes Additional Social history: Patient is , with one daughter. He is a grandfather of 4. He has a 50 approximate pack-year history of smoking, but denies alcohol use. Meds Allergies and Home Medications Allergies Allergy/AdvReac Type Severity Reaction Status Date / Time tetanus and diphtheria AdvReac Intermediate severe Verified 11/01/21 16:08 toxoids muscle pain x 2 weeks after injection on 09/2012 Home Medications Medication Instructions Recorded Confirmed Type Wheeled walker #1 ea 04/18/19 11/01/21 Rx acetaminophen 325 mg capsule 650 mg PO Q6H PRN cap 12/15/20 11/01/21 History amitriptyline 25 mg tablet 50 mg PO HS #90 tab 09/29/21 11/01/21 Rx aspirin 81 mg tablet,delayed 81 mg PO DAILY #90 tab-cap 09/29/21 11/01/21 Rx release escitalopram oxalate 20 mg tablet 20 mg PO DAILY #90 tab 09/29/21 11/01/21 Rx etodolac 400 mg tablet 400 mg PO BID #180 tab-cap 09/29/21 11/01/21 Rx gabapentin 600 mg tablet 600 mg PO TID 90 Days #270 tab-cap 09/29/21 11/01/21 Rx lisinopril 10 mg tablet 10 mg PO DAILY #90 tab 09/29/21 11/01/21 Rx pantoprazole 20 mg tablet,delayed 20 mg PO DAILY #90 tab-cap 09/29/21 11/01/21 Rx release rosuvastatin 20 mg tablet (Crestor) 20 mg PO DAILY #90 tab 09/29/21 11/01/21 Rx Exam Narrative Exam Narrative: Older white male lying in bed watching TV in no acute distress. He has stuttering speech otherwise HEENT is unremarkable. Neck is supple no JVD normal carotid pulses no bruits Lungs are clear to auscultation Heart is regular rate and rhythm without appreciable murmur rub or gallop Abdomen is soft nontender nondistended normal bowel sounds no bruits no palpable masses. No suprapubic tenderness. Extremities without peripheral cyanosis or edema normal range of motion. Results Labs Result diagrams: 11/01/21 16:02 11/01/21 15:07 Labs: Laboratory Results - last 24 hr 11/01/21 11/01/21 11/01/21 15:07 16:02 16:17 WBC 15.83 H RBC 5.31 Hgb 16.7 Hct 50.1 H MCV 94.4 MCH 31.5 MCHC 33.3 RDW 13.5 Plt Count 120 L MPV 11.7 H Immature Gran % 0.3 Neutrophils % 78.9 Lymphocytes % 12.4 Monocytes % 5.8 Eosinophils % 2.0 Basophils % 0.6 Nucleated RBC % 0 Absolute Neutrophils 12.49 H Absolute Lymphocytes 1.96 Absolute Monocytes 0.92 H Absolute Eosinophils 0.32 Absolute Basophils 0.09 Sodium 141 Potassium 3.8 Chloride 105 Carbon Dioxide 23.2 Anion Gap 12.8 H BUN 29 H Creatinine 1.8 H Estimated GFR/1.73 m2 37.94 Glucose 89 Calcium 9.1 Magnesium 2.4 Total Bilirubin 1.8 H AST 41 H ALT 91 H Alkaline Phosphatase 95 Troponin I < 50 Total Protein 7.8 Albumin 4.3 Urine Color Yellow Urine Clarity Sl Cloudy Urine pH 6.0 Ur Specific [place] >= 1.030 H Urine Protein Trace H Urine Ketones 15 H Urine Blood Large H Urine Nitrite Negative Urine Bilirubin Large H Urine Urobilinogen 2.0 H Ur Leukocyte Esterase Negative Urine RBC Not Applicable Urine WBC >50 H Ur Epithelial Cells Not Applicable Urine Crystals Not Applicable Urine Bacteria Not Applicable Urine Mucus Not Applicable Ur Culture Indicated? Yes Urine Glucose Negative COVID-19 Source SARS-CoV-2 (PCR) 11/01/21 11/01/21 16:36 18:55 WBC RBC Hgb Hct MCV MCH MCHC RDW Plt Count MPV Immature Gran % Neutrophils % Lymphocytes % Monocytes % Eosinophils % Basophils % Nucleated RBC % Absolute Neutrophils Absolute Lymphocytes Absolute Monocytes Absolute Eosinophils Absolute Basophils Sodium Potassium Chloride Carbon Dioxide Anion Gap BUN Creatinine Estimated GFR/1.73 m2 Glucose Calcium Magnesium Total Bilirubin AST ALT Alkaline Phosphatase Troponin I < 50 Total Protein Albumin Urine Color Urine Clarity Urine pH Ur Specific [place] Urine Protein Urine Ketones Urine Blood Urine Nitrite Urine Bilirubin Urine Urobilinogen Ur Leukocyte Esterase Urine RBC Urine WBC Ur Epithelial Cells Urine Crystals Urine Bacteria Urine Mucus Ur Culture Indicated? Urine Glucose COVID-19 Source Nasal/Nares SARS-CoV-2 (PCR) Negative Last Vital Signs Temp 36.9 C 11/01/21 23:28 Pulse 18 L 11/01/21 23:28 Resp 18 11/01/21 23:28 BP 147/83 H 11/01/21 23:28 Pulse Ox 96 11/01/21 23:28
[2021-11-02] VITALS (42 sets, daily range): BP systolic 117–145; BP diastolic 68–84; PULSE 65–95; RESP 16–19; TEMP 36.5–36.9; O2SAT 96–97
[2021-11-02] MEDS: Enoxaparin 40 MG/0.4 ML SYR SC ×2 (00:28→23:06)
[2021-11-02] MEDS: Lactated Ringers 1,000 ML 150 ML IV (00:28)
[2021-11-02] MEDS: Gabapentin 600 MG TAB 300 MG PO ×4 (00:29→19:55)
[2021-11-02] MEDS: Amitriptyline 25 MG TAB 50 MG PO ×2 (00:29→23:05)
[2021-11-02] MEDS: Normal Saline Flush 10 ML SYR IVP ×2 (00:30→07:56)
[2021-11-02] MEDS: Rosuvastatin 10 MG TAB 20 MG PO ×2 (00:30→19:55)
[2021-11-02] MEDS: DOXYCYCLINE 100 MG in Normal Saline 100 ML IVPB ×3 (00:36→23:08)
[2021-11-02 02:03] LABS: Procalcitonin < 0.1 ng/mL
[2021-11-02 05:55] LABS: Lab Add On Test DONE
[2021-11-02 06:55] LABS: Lactate 1.4 mmol/L (0.6-1.4)
--- NOTE | 2021-11-02 07:00 | DI.US_ITS ---
Exam(s) US RENAL EXAM: US RENAL CLINICAL HISTORY: EFRAÍN, UTI; r/o hydronephrosis, r/o pyelonephritis TECHNIQUE: Ultrasound performed using standard protocol. COMPARISON: US Cardiac from 09/30/2018 FINDINGS: Kidneys are normal in size and shape. There is no evidence of a renal mass or hydronephrosis. There is there are bilateral small lower pole echogenic foci, each measuring about 5 millimeters in diamet er with posterior acoustic shadowing and twinkle artifact indicating that these are likely to be nono bstructing renal stones. Ureteral jets were nonvisualized. Bladder is unremarkable in appearance, bladder contains 291 cc of urine and the patient was unable to void. IMPRESSION: Bilateral nonobstructing renal calculi are noted as described above. Patient was unable to void and the bladder contains 291 cc. DATA REPOSITORY:
[2021-11-02 07:03] LABS: HCT 43.6 % (40.0-50.0); HGB 14.3 g/dL (13.5-17.5); MCHC 32.8 % (32.0-36.0); MCV 94.6 fL (80-95); MPV 12.5 fL (8.0-11.0); Platelet Count 108 10^3/uL (130-400); RBC 4.61 10^6/uL (4.36-5.78); RDW 13.7 % (11.8-14.1); RDW-SD 47.5 fL; WBC 8.58 10^3/uL (4.4-10.8)
[2021-11-02 07:28] LABS: ALT 60 U/L (16-63); Albumin 3.3 g/dL (3.4-5.0); Alkaline Phosphatase 82 U/L (46-116); Anion Gap 11.7 mmol/L (3-11); BUN 22 mg/dL (7-18); Bilirubin, Total 0.9 mg/dL (0.2-1.0); CO2 22.3 mmol/L (21.0-32.0); CREATININE 1.4 mg/dL (0.70-1.30); Calcium 8.2 mg/dL (8.5-10.1); Chloride 110 mmol/L (98-107); Glucose 147 mg/dL (74-106); Potassium 3.8 mmol/L (3.5-5.1); Sodium 144 mmol/L (136-145); Total Protein 6.3 g/dL (6.4-8.2)
[2021-11-02 07:51] LABS: AST 29 U/L (15-37)
[2021-11-02] MEDS: Aspirin E.C. 81 MG TABEC PO (07:57)
[2021-11-02] MEDS: Pantoprazole 20 MG TABCR PO (07:57)
[2021-11-02] MEDS: Escitalopram 20 MG TAB PO (07:57)
--- NOTE | 2021-11-02 10:13 | PT.INIE ---
Date of service: 11/02/21 Time of Service: 10:13 PT Notes Visit Reasons: Generalized Weakness, EFRAÍN, UTI, Dehydration Physical Therapy Inpatient Initial Evaluation Date: 11/02/2021 Referring Doctor: Anam Weinberg MD PT Orders: PT CONSULT: Fall safety assessment Precautions: Fall. Standard. Activity as tolerated. Patient Profile/Admitting Diagnosis: Alex is a 66-year-old male who presented to the ED on 11/01/2021 due to dizziness and fall x2 prior to admission resulting from bilateral leg weakness. Patient is diagnosed with urinary tract infection, dehydration, prerenal acidemia, acute kidney injury, generalized weakness, essential hypertension, and dog tick bite. 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 done at [facility] w/endograftAAA (abdominal aortic aneurysm) (Acute) Depressive disorder (Chronic 09/23/05) DEPRESSION 2005 Ambulatory dysfunction (Acute) Chronic pain (Chronic) hip, left Emphysema lung (Acute) Pulmonary nodule (Chronic) Tobacco use disorder, moderate, dependence (Chronic 09/23/05) CHRONIC SMOKER <2005; 1 PPD Spinal stenosis in cervical region (Chronic 01/01/90) NECK PAIN, 01/1990 DR COBURN C-6 INTO L ARM; neurontin for neuropathic pain 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 Generalized anxiety disorder (Acute 01/02/12) fluoxetine since at least 2005 Gastroesophageal reflux disease (Acute 04/10/17) Medical History? Chronic left hip pain Surgical History? History of knee surgery Social History/Home Situation: Lives alone in an apartment building with 2 steps to enter without rails. He states that his apartment managers who live upstairs from him provide assistance with grocery shopping, transportation, and occasional meals. He receives Meals on Wheels. Able to manage on his own with all other ADLs prior to admission. Uses no assistive device for indoors but needs his 4-wheeled walker for outdoors. Equipment Owned/DME: 4[employer] Subjective: Agreeable to PT consult. Reported dizziness at the start of ambulation activity. Denies headache and chest pain throughout session. Reports discomfort at site of IV insertion. Nurse Mary aware and has been managing insertion site. Objective: General Observation: In NAD. Seated on chair. Telemetry monitoring in place. IV through right UE. Stutters. Mental Status: Alert and oriented as to person, place, time, and purpose. Able to pay attention, focus, and respond appropriately. Pain: 3-4/10 in low back ROM: Right Upper Extremity: Shoulder Flexion WFL. Shoulder abduction WFL. Elbow flexion WFL. Wrist flexion WFL. Functional opening and closing of hand WFL. Left Upper Extremity: Shoulder Flexion WFL. Shoulder abduction WFL. Elbow flexion WFL. Wrist flexion WFL. Functional opening and closing of hand WFL. Right Lower Extremity: Hip flexion WFL. Hip abduction WFL. Knee flexion WFL. Ankle dorsiflexion WFL. Ankle plantarflexion WFL. Left Lower Extremity: Hip flexion WFL. Hip abduction WFL. Knee flexion WFL. Ankle dorsiflexion WFL. Ankle plantarflexion WFL. Strength: Right Upper Extremity: Shoulder flexors 5/5. Shoulder abductors 5/5. Elbow flexors 5/5. Elbow extensors 5/5. [employer] strong. Left Upper Extremity: Shoulder flexors 5/5. Shoulder abductors 5/5. Elbow flexors 5/5. Elbow extensors 5/5. [employer] strong. Right Lower Extremity: Hip flexors 4/5. Hip abductors 4/5. Knee flexors 5/5. Knee extensors 4/5. Ankle dorsiflexors 4/5. Ankle plantarflexors 4/5. Left Lower Extremity: Hip flexors 4/5. Hip abductors 4/5. Knee flexors 5/5. Knee extensors 4/5. Ankle dorsiflexors 4/5. Ankle plantarflexors 4/5. Bed Mobility/Transfers: Sit to stand with contact-guard assist Stand to sit with contact-guard assist Bed to reclining chair with contact-guard assist Gait: Instructed patient with level surface ambulation of 250feet requiring contact-guardassist. Bobbi decreased. Verbal cues provided for walker management. Wheelchair follow provided due to previous reports of dizziness and falls. Reported back pain towards the end of activity has subsided with rest. Balance: Static Sitting: Normal Dynamic Sitting: Normal Static Standing: Fair Dynamic Standing: Fair Special Tests: Mobility Limitations Standardized Measure [facility] AM-PAC 6 clicks Basic Mobility Inpatient Short Form: Raw Score: 18 CMS Score: 47% deficit Informed Consent/Education: Patient was instructed in purpose of PT consult and plan of care. Agreeable to proceed with established PT POC to achieve personal goals. Assessment: Alex demonstrates functional mobility decline requiring the use of front wheeled walker for all mobility ADL performance at all times to reduce fall risk. Patient presents with clinical signs and symptoms consistent with current/admitting diagnoses that have resulted to mobility limitations, gait instability, generalized weakness, and overall ADL decline as demonstrated by the following impairment level findings: 1. Decreased strength to BLEmajor muscle groups 2. Impaired standing balance 3. Impaired activity tolerance Impairments are contributing to the following functional limitations: 1. Difficulty with ambulation without assistive device and physical assistance 2. Increased completion time for mobility ADL performance 3. Increased risk for falls 4. Difficulty with managing steps alone safely Patient is assessed as a [id number] moderate complexity based on the following: History: 66-year-old malewith past medical history as indicated above Examination: Demonstrable impairment in strength, balance, and mobility level with underlying impairments and functional limitations as exhibited above as well as deficit score of 47% utilizing the [facility] Mobility Inpatient Short Form Presentation: Evolving Decision Makin moderate complexity Goals: Goals X1 week 1. Supine-Sit independent 2. Sit-Supine independent 3. Sit-Stand independent 4. Stand-Sit independent with 4WW 5. Bed-Chair independent with 4WW 6. Chair-Bed independent with 4WW 7. Independent gait on level surface with use of 4WW for at least 300 feet without report of pain nor dyspnea 8. Independent stair negotiation while holding onto no rails for at least 3 steps without report of pain nor dyspnea 9. Good static and dynamic standing balance/tolerance Plan of Care/Treatment Plan: 1-2x/day, 7 days/week x 1 week. Plan of care has been reviewed with the GUEST SERVICES REPRESENTATIVE providing the service under Physical Therapy direction. Initiate Physical Therapy intervention for pain management as needed, strengthening, bed mobility, transfers, gait, stairs, balance training, and use of assistive device. DISCHARGE RECOMMENDATIONS: [] Home with no services [] [] Home with services [specify] [] Home with outpatient PT [] [] SNF for continued rehabilitation [] [] Care Home Care [] [] SNF versus LTC based on ability to participate and progress [] [] SNF versus PT based on ability to participate and progress. Will update CM for most apporpriate D/C destination. TREATMENT CODE/TIME: 43402 x 27 minutes beginning at 10:13 AM. Thank you for the opportunity to participate in the care of this patient. Heather Song PT, DPT, CLT [facility] [place], [place]
--- NOTE | 2021-11-02 10:34 | INITIAL_ITS ---
- If Service Date Differs Date of service: 11/02/21 Time of Service: 10:34 Care Management Initial Assess REASON FOR HOSPITALIZATION:: Generalized weakness, UTI, EFRAÍN, dehydration PAST MEDICAL HISTORY/PAST SURGICAL HISTORY:: All Active Problems. Tick bite (A cute). Acute kidney injury (nontraumatic) (Acute). Prerenal azotemia (Acute). Acute UTI (Acute). Dehydration (Acute). Weakness (Acute). Onychogryphosis (Acute). Essential hypertension (Acute). Learning disability (Acute). 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 AAA (abdominal aortic aneurysm) (Acute). Depressive disorder (Chronic 09/23/05). DEPRESSION 2005. Ambulatory dysfunction (Acute). Chronic pain (Chronic). hip, left. Emphysema lung (Acute). Pulmonary nodule (Chronic). Tobacco use disorder, moderate, dependence (Chronic 09/23/05). CHRONIC SMOKER <2006; 1 PPD. Spinal stenosis in cervical region (Chronic 01/01/90). NECK PAIN, 01/1990 DR COBURN C-6 INTO L ARM; neurontin for neuropathic pain. 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 STUTTER SINCE CHILDHOOD. Migraine without aura and without status migrainosus, not intractable (Chronic 09/23/05). MIGRAINE, H/O MAXALT. Migraine, unspecified, not intractable, without status migrainosus (Acute 09/23/05). MIGRAINE, H/O MAXALT. Hyperlipidemia (Chronic 09/03/97). GOAL LDL<100; LDL 200 PRIOR TO RX; RISK >20% (11/2005): RX ASA, CRESTOR, STOP SMOKING! Generalized anxiety disorder (Acute 01/02/12). fluoxetine since at least 2005. Gastroesophageal reflux disease (Acute 04/10/17). Medical History. Chronic left hip pain. Surgical History. History of knee surgery PREVIOUS FUNCTIONAL STATUS/SOCIAL/FAMILY SUPPORTS:: Alex lives alone in [facility]. He has some supportive neighbors in his building. He has a daughter who has four children, who live in [place], and do not provide support. 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 He is independent with ADL's, but does not drive. CURRENT FUNCTIONAL STATUS:: Alex was sitting up in his chair when CM met with him. He was pleasant and engaged in conversation. He stated that he was very scared when he fell at home, as he came close to hitting his head. He stated that his brother after falling and hitting his head, but he did report that his brother was a heavy drinker, and he is not. He stated that he worked with PT today, and feels that he will benefit from some short term rehab prior to returning home. He reported that he is independent at baseline, but has been very weak lately, and his legs have been giving out on him. CM sent a referral to [facility], at his request. CM will continue to follow. ADVANCE DIRECTIVES:: None on file. Has patient been provided with info about the portal/API?: Yes Did the patient sign up for the portal?: No CODE STATUS:: Full Code INSURANCE COVERAGE / FINANCIAL ISSUES:: [facility] CURRENT HOME/COMMUNITY SERVICES/EQUIPMENT:: No known services currently. PRIMARY CARE PHYSICIAN:: Carlos Nguyen POTENTIAL DISCHARGE NEEDS:: Evaluations for further needs, follow up appointments. PATIENT/FAMILY EDUCATION NEEDS:: Review discharge instructions regarding activity level and medications, discussion of self care needs and goals of care. ANTICIPATED BARRIERS TO DISCHARGE:: None identified. TRANSPORTATION:: Via private vehicle by [facility] PLAN:: Anticipate Alex will return home when medically cleared. services will be ordered, if indicated. He will be driven home via [facility] private vehicle. He will follow up with his PCP and discharge plan of care. CM will continue to follow.
[2021-11-02] MEDS: Lactated Ringers 1,000 ML 85 ML IV (11:24)
--- NOTE | 2021-11-02 13:45 | PTTR_ITS ---
PT Notes Visit Reasons: Generalized Weakness, EFRAÍN, UTI, Dehydration 11/02/2021 SUBJECTIVE: Feels weak in the LE's. Agrees to PT but needs to walk very slowly. OBJECTIVE: TRANSFERS Sit to stand: CGA Stand to sit: CGA GAIT Device: FWW Weight bearing: Full Assist: SBA Distance: 75'x3 Deviation: Requires 2 sit rest breaks due to LE fatigue, slow gait THEREX: Seated UE/LE strengthening exercises as noted on flow sheet. May tolerate resistance with these exercises tomorrow. See flow sheet for specifics. ASSESSMENT: Tolerates PT well today. Is more fatigued this PM requiring several rest breaks during gait. PLAN: Continue current POC. Progress LE strength and endurance. Treatment time: 25 minutes [id number], [id number] Paola Bull PTA Clinic location: [facility] [place], [place]
--- NOTE | 2021-11-02 14:49 | PGE_ITS ---
Date of Service Date of service: 11/02/21 Time of Service: 14:49 Assessment and Plan Assessment and plan (1) Acute UTI: Status: Acute Assessment and plan: Urine cultures and blood cultures have been obtained and pending. Continue ceftriaxone 1 g IV every 24 hours day 2. Check renal ultrasound the morning to evaluate for pyelonephritis versus hydronephrosis as a cause for his EFRAÍN. Exam(s) US RENAL EXAM:? US RENAL CLINICAL HISTORY:? EFRAÍN, UTI; r/o hydronephrosis, r/o pyelonephritis TECHNIQUE:? Ultrasound? performed using standard protocol. COMPARISON:? US Cardiac from 09/30/2018 FINDINGS: Kidneys are normal in size and shape.? There is no evidence of a renal mass or hydronephrosis.? There is there are bilateral small lower pole echogenic foci, each measuring about 5 millimeters in diameter with posterior acoustic shadowing and twinkle artifact indicating that these are likely to be nonobstructing renal stones. Ureteral jets were nonvisualized.? Bladder is unremarkable in appearance, bladder contains 291 cc of urine and the patient was unable to void. IMPRESSION: Bilateral nonobstructing renal calculi are noted as described above.? Patient was unable to void and the bladder contains 291 cc. (2) Dehydration: Status: Acute Assessment and plan: Unclear as the etiology of his acute dehydration. Denies any nausea or vomiting or diarrhea. Yet his BUN and creatinine are suggestive of prerenal azotemia and dehydration and his specific gravity also is consistent with dehydration. Does not appear that he is taking any diuretics. He does take lisinopril daily and he is also taken he had a D.O.A.C. Both of these should be held due to his EFRAÍN. labs improved today (3) Prerenal azotemia: Status: Acute Assessment and plan: Presumption is that his acute kidney injury secondary to dehydration and prerenal azotemia. improved with hydration continue to follow labs and provide gentle fluids (4) Acute kidney injury (nontraumatic): Status: Acute Assessment and plan: secondary to prerenal azotemia; hydrate and repeat BMP in the a.m.; check renal US to rule obstruction (5) Weakness: Status: Acute Assessment and plan: PT/OT plan to discharge for short rehab stay prior to returning home. (6) Essential hypertension: Status: Acute Assessment and plan: Withhold lisinopril for now until he is adequately rehydrated and his renal fxn has returned to normal blood pressure controlled. (7) Tick bite: Status: Acute Assessment and plan: patient w/ exposure to dog tick; per the ER provider, this did not look like a deer tick. nevertheless, a tick panel was ordered. I will continue on doxycycline prophylactically discussed with DR Medina Subjective Subjective Patient reports: feels better, tolerating liquids well, tolerating a regular diet and afebrile Interval history since last seen: reambulating well with PT Exam Const General: cooperative, comfortable, frail appearing and ill appearing chronically Nutritional Appearance: overweight Orientation: alert, awake and oriented x3 HENMT Head: normal to inspection, normocephalic and atraumatic Mouth: oral mucosae normal Resp Effort & Inspection: normal respiratory effort Cardio Rate: regular rate Rhythm: regular rhythm GI Palpation: soft Auscultation: normal bowel sounds Neuro General: patient alert, patient awake and patient oriented x3 Speech: abnormal speech slurred Gait: gait assisted Method: walker Motor: muscle tone normal throughout Extrem General: normal to inspection and full ROM Objective Last Vital Signs Temp 36.9 C 11/02/21 11:55 Pulse 86 11/02/21 11:55 Resp 18 11/02/21 11:55 BP 128/84 11/02/21 11:55 Pulse Ox 97 11/02/21 11:55 Laboratory Results - last 24 hr 11/01/21 11/01/21 11/01/21 15:07 16:02 16:17 WBC 15.83 H RBC 5.31 Hgb 16.7 Hct 50.1 H MCV 94.4 MCH 31.5 MCHC 33.3 RDW 13.5 Plt Count 120 L MPV 11.7 H Immature Gran % 0.3 Neutrophils % 78.9 Lymphocytes % 12.4 Monocytes % 5.8 Eosinophils % 2.0 Basophils % 0.6 Nucleated RBC % 0 Absolute Neutrophils 12.49 H Absolute Lymphocytes 1.96 Absolute Monocytes 0.92 H Absolute Eosinophils 0.32 Absolute Basophils 0.09 VBG Lactate Sodium 141 Potassium 3.8 Chloride 105 Carbon Dioxide 23.2 Anion Gap 12.8 H BUN 29 H Creatinine 1.8 H Estimated GFR/1.73 m2 37.94 Glucose 89 Calcium 9.1 Magnesium 2.4 Total Bilirubin 1.8 H AST 41 H ALT 91 H Alkaline Phosphatase 95 Troponin I < 50 Total Protein 7.8 Albumin 4.3 Procalcitonin TSH Urine Color Yellow Urine Clarity Sl Cloudy Urine pH 6.0 Ur Specific [place] >= 1.030 H Urine Protein Trace H Urine Ketones 15 H Urine Blood Large H Urine Nitrite Negative Urine Bilirubin Large H Urine Urobilinogen 2.0 H Ur Leukocyte Esterase Negative Urine RBC Not Applicable Urine WBC >50 H Ur Epithelial Cells Not Applicable Urine Crystals Not Applicable Urine Bacteria Not Applicable Urine Mucus Not Applicable Ur Culture Indicated? Yes Urine Glucose Negative COVID-19 Source SARS-CoV-2 (PCR) Add-On Test Request 11/01/21 11/01/21 11/01/21 16:36 18:55 18:55 WBC RBC Hgb Hct MCV MCH MCHC RDW Plt Count MPV Immature Gran % Neutrophils % Lymphocytes % Monocytes % Eosinophils % Basophils % Nucleated RBC % Absolute Neutrophils Absolute Lymphocytes Absolute Monocytes Absolute Eosinophils Absolute Basophils VBG Lactate Sodium Potassium Chloride Carbon Dioxide Anion Gap BUN Creatinine Estimated GFR/1.73 m2 Glucose Calcium Magnesium Total Bilirubin AST ALT Alkaline Phosphatase Troponin I < 50 Total Protein Albumin Procalcitonin < 0.1 TSH Urine Color Urine Clarity Urine pH Ur Specific [place] Urine Protein Urine Ketones Urine Blood Urine Nitrite Urine Bilirubin Urine Urobilinogen Ur Leukocyte Esterase Urine RBC Urine WBC Ur Epithelial Cells Urine Crystals Urine Bacteria Urine Mucus Ur Culture Indicated? Urine Glucose COVID-19 Source Nasal/Nares SARS-CoV-2 (PCR) Negative Add-On Test Request 11/02/21 11/02/21 11/02/21 00:47 06:45 06:45 WBC 8.58 D RBC 4.61 Hgb 14.3 D Hct 43.6 MCV 94.6 MCH 31.0 MCHC 32.8 RDW 13.7 Plt Count 108 L MPV 12.5 H Immature Gran % Neutrophils % Lymphocytes % Monocytes % Eosinophils % Basophils % Nucleated RBC % Absolute Neutrophils Absolute Lymphocytes Absolute Monocytes Absolute Eosinophils Absolute Basophils VBG Lactate Sodium 144 Potassium 3.8 Chloride 110 H Carbon Dioxide 22.3 Anion Gap 11.7 H BUN 22 H D Creatinine 1.4 H Estimated GFR/1.73 m2 50.70 Glucose 147 H Calcium 8.2 L Magnesium Total Bilirubin 0.9 AST 29 ALT 60 Alkaline Phosphatase 82 Troponin I Total Protein 6.3 L Albumin 3.3 L Procalcitonin TSH 1.20 Urine Color Urine Clarity Urine pH Ur Specific [place] Urine Protein Urine Ketones Urine Blood Urine Nitrite Urine Bilirubin Urine Urobilinogen Ur Leukocyte Esterase Urine RBC Urine WBC Ur Epithelial Cells Urine Crystals Urine Bacteria Urine Mucus Ur Culture Indicated? Urine Glucose COVID-19 Source SARS-CoV-2 (PCR) Add-On Test Request DONE 11/02/21 06:45 WBC RBC Hgb Hct MCV MCH MCHC RDW Plt Count MPV Immature Gran % Neutrophils % Lymphocytes % Monocytes % Eosinophils % Basophils % Nucleated RBC % Absolute Neutrophils Absolute Lymphocytes Absolute Monocytes Absolute Eosinophils Absolute Basophils VBG Lactate 1.4 Sodium Potassium Chloride Carbon Dioxide Anion Gap BUN Creatinine Estimated GFR/1.73 m2 Glucose Calcium Magnesium Total Bilirubin AST ALT Alkaline Phosphatase Troponin I Total Protein Albumin Procalcitonin TSH Urine Color Urine Clarity Urine pH Ur Specific [place] Urine Protein Urine Ketones Urine Blood Urine Nitrite Urine Bilirubin Urine Urobilinogen Ur Leukocyte Esterase Urine RBC Urine WBC Ur Epithelial Cells Urine Crystals Urine Bacteria Urine Mucus Ur Culture Indicated? Urine Glucose COVID-19 Source SARS-CoV-2 (PCR) Add-On Test Request
[2021-11-02] MEDS: cefTRIAXone 1 GM/50 ML BAG IVPB (19:56)
[2021-11-02] MEDS: Normal Saline 500 ML 30 ML IV (19:57)
[2021-11-03] VITALS (13 sets, daily range): BP systolic 112–155; BP diastolic 72–84; PULSE 60–85; RESP 14–20; TEMP 36.6–37.1; O2SAT 94–96
[2021-11-03] MEDS: Lactated Ringers 1,000 ML 85 ML IV (01:15)
[2021-11-03 06:48] LABS: Abs Immature Grans 0.03 10^3/uL (0.0-0.06); Absolute Basophil Count 0.08 10^3/uL (0.0-0.2); Absolute Eosinophil Count 0.75 10^3/uL (0.0-0.7); Absolute Lymphocyte Count 2.26 10^3/uL (1.2-3.4); Absolute Monocyte Count 0.67 10^3/uL (0.1-0.8); Absolute Neutrophil Count 4.95 10^3/uL (1.2-6.7); Basophils % 0.9; Eosinophils % 8.6; HCT 44.5 % (40.0-50.0); Immature Grans % 0.3; Lymphocytes % 25.9; MCH 31.4 pg (27.0-33.0); MCHC 33.7 % (32.0-36.0); MCV 93.1 fL (80-95); MPV 12.5 fL (8.0-11.0); Monocytes % 7.7; Neutrophils % 56.6; Nucleated RBC 0 %; Platelet Count 105 10^3/uL (130-400); RBC 4.78 10^6/uL (4.36-5.78); RDW 13.7 % (11.8-14.1); RDW-SD 47.3 fL; WBC 8.74 10^3/uL (4.4-10.8)
[2021-11-03 07:12] LABS: BUN 13 mg/dL (7-18); CREATININE 1.3 mg/dL (0.70-1.30); Calcium 9.4 mg/dL (8.5-10.1); Chloride 109 mmol/L (98-107); Estimated GFR 55.23 (mL/min/1.73m2); Glucose 102 mg/dL (74-106); Potassium 4.3 mmol/L (3.5-5.1); Sodium 143 mmol/L (136-145)
[2021-11-03] MEDS: Aspirin E.C. 81 MG TABEC PO (09:09)
[2021-11-03] MEDS: Pantoprazole 20 MG TABCR PO (09:09)
[2021-11-03] MEDS: Escitalopram 20 MG TAB PO (09:09)
[2021-11-03] MEDS: Gabapentin 600 MG TAB 300 MG PO ×3 (09:09→20:11)
--- NOTE | 2021-11-03 09:41 | PDOC.CMPRO ---
- If Service Date Differs Date of service: 11/03/21 Time of Service: 09:41 Care Management Progress Note S/O: Alex was sitting up in his chair when CM met with him. He was awake, alert and pleasant. He is on IV abx and being monitored on telemetry. Alex would like to discharge home with full [facility] services, however he recognizes that he would benefit from short term rehab. Alex is able to discharge to [facility] tomorrow for continued PT/OT prior to returning home. He will let CM know in the morning what he decides. Covid test ordered in anticipation of tomorrow's discharge. CM will continue to support discharge planning needs. A: 66 year old male admitted to [facility] on 11/01/21 for Generalized weakness, UTI, EFRAÍN, dehydration. P: Anticipate Alex will discharge home with New [facility] services via [facility] private vehicle vs. SNF via facility van for short term rehab. Alex was planning on discharging to [facility] Sunday for short term rehab, however he may want to go home with services instead. He will let CM know if the morning. Alex will follow up with community providers and discharge plan of care. CM will continue to follow.
--- NOTE | 2021-11-03 10:13 | PTTR_ITS ---
PT Notes Visit Reasons: Generalized Weakness, EFRAÍN, UTI, Dehydration 11/03/2021 SUBJECTIVE: Feeling okay today. He did not sleep great last night. He notes he was quite strong in his younger years. OBJECTIVE: TRANSFERS Sit to stand: CGA Stand to sit: CGA GAIT Device: FWW Weight bearing: Full Assist: SBA distance: 75'x3 Deviation: 2x seated rest break due to LE fatigue. THEREX: Seated UE/LE strengthening exercises as noted on flow sheet. Tolerates light resistance with this UE exercises today. See flow sheet for specifics. ASSESSMENT: Tolerates PT well today. Fatigues quickly with ambulation. Pt does have a 4WW at home with a seat which he utilizes when he gets tired. PLAN: Continue per POC. Treatment time: 25 minutes [id number], [id number] Paola Bull PTA Clinic location: [facility] [place], [place]
[2021-11-03 12:01] LABS: Lyme Ab w Rflx to Lyme Confirm Negative (Negative)
[2021-11-03] MEDS: DOXYCYCLINE 100 MG in Normal Saline 100 ML IVPB ×2 (12:06→23:17)
[2021-11-03 16:03] LABS: Source Nasal/Nares
--- NOTE | 2021-11-03 16:57 | PT.INTREAT ---
Date of service: 11/03/21 Time of Service: 15:30 PT Notes Visit Reasons: Generalized Weakness, EFRAÍN, UTI, Dehydration Inpatient Physical Therapy Treatment Note [facility] Date: 11/03/2021 PRECAUTIONS: Fall and activities as tolerated SUBJECTIVE: I want to get up and run. Stated he is feeling better this afternoon. Occasionally made statements that did not seem accurate. OBJECTIVE: PAIN: Legs and back get tired when walking. TRANSFERS Sit to stand: CGA Stand to sit: CGA GAIT Device: FWW Weight bearing: Full Assist: SBA Distance: 400ft with one seated break due to leg fatigue. THEREX: Seated UE/LE strengthening exercises as noted on flow sheet. Tolerates 3# resistance with this UE exercises today. ASSESSMENT: Tolerates PT session well this afternoon. PLAN: Continue per POC. Treatment time: 30 minutes [id number], [id number]
--- NOTE | 2021-11-03 17:03 | W.PM.PROGNOT ---
Date of Service Date of service: 11/03/21 Time of Service: 17:03 Assessment and Plan Assessment and plan (1) Acute UTI: Start date: 11/03/21 Start time: 17:04 Status: Acute Assessment and plan: Urine cultures and blood cultures have been obtained and pending. Continue ceftriaxone 1 g IV every 24 hours day 3. Exam(s) US RENAL EXAM:? US RENAL CLINICAL HISTORY:? EFRAÍN, UTI; r/o hydronephrosis, r/o pyelonephritis TECHNIQUE:? Ultrasound? performed using standard protocol. COMPARISON:? US Cardiac from 09/30/2018 FINDINGS: Kidneys are normal in size and shape.? There is no evidence of a renal mass or hydronephrosis.? There is there are bilateral small lower pole echogenic foci, each measuring about 5 millimeters in diameter with posterior acoustic shadowing and twinkle artifact indicating that these are likely to be nonobstructing renal stones. Ureteral jets were nonvisualized.? Bladder is unremarkable in appearance, bladder contains 291 cc of urine and the patient was unable to void. IMPRESSION: Bilateral nonobstructing renal calculi are noted as described above.? Patient was unable to void and the bladder contains 291 cc (2) Dehydration: Start date: 11/03/21 Start time: 17:05 Status: Resolved Assessment and plan: Resolved (3) Prerenal azotemia: Start date: 11/03/21 Start time: 17:07 Status: Resolved Assessment and plan: secondary to dehydration Resolved (4) Acute kidney injury (nontraumatic): Start date: 11/03/21 Start time: 17:07 Status: Resolved Assessment and plan: resolved (5) Weakness: Start date: 11/03/21 Start time: 17:07 Status: Acute Assessment and plan: PT/OT plan to discharge for short rehab stay prior to returning home Patient being discharged to /R tomorrow (6) Essential hypertension: Start date: 11/03/21 Start time: 17:08 Status: Acute Assessment and plan: Resume HTN medication (7) Tick bite: Start date: 11/03/21 Status: Acute Assessment and plan: patient w/ exposure to dog tick; per the ER provider, this did not look like a deer tick. nevertheless, a tick panel was ordered. I will continue on doxycycline prophylactically discussed with DR Medina Subjective Subjective Patient reports: no new complaints Interval history since last seen: No new complaints. D/t to HR tomorrow. Exam Const General: cooperative, comfortable, frail appearing and ill appearing chronically Nutritional Appearance: overweight Orientation: alert, awake and oriented x3 HENMT Head: normal to inspection, normocephalic and atraumatic Mouth: oral mucosae normal Resp Effort & Inspection: normal respiratory effort Cardio Rate: regular rate Rhythm: regular rhythm GI Palpation: soft Auscultation: normal bowel sounds Neuro General: patient alert, patient awake and patient oriented x3 Speech: abnormal speech slurred Gait: gait assisted Method: walker Motor: muscle tone normal throughout Extrem General: normal to inspection and full ROM Objective Last Vital Signs Temp 37.1 C 11/03/21 15:22 Pulse 85 11/03/21 15:41 Resp 14 11/03/21 15:22 BP 131/80 11/03/21 15:22 Pulse Ox 94 11/03/21 15:22 Laboratory Results - last 24 hr 11/01/21 11/03/21 11/03/21 18:55 06:21 06:21 WBC 8.74 RBC 4.78 Hgb 15.0 Hct 44.5 MCV 93.1 MCH 31.4 MCHC 33.7 RDW 13.7 Plt Count 105 L MPV 12.5 H Immature Gran % 0.3 Neutrophils % 56.6 Lymphocytes % 25.9 Monocytes % 7.7 Eosinophils % 8.6 Basophils % 0.9 Nucleated RBC % 0 Absolute Neutrophils 4.95 Absolute Lymphocytes 2.26 Absolute Monocytes 0.67 Absolute Eosinophils 0.75 H Absolute Basophils 0.08 Sodium 143 Potassium 4.3 Chloride 109 H Carbon Dioxide 25.0 Anion Gap 9.0 BUN 13 D Creatinine 1.3 Estimated GFR/1.73 m2 55.23 Glucose 102 Calcium 9.4 Lyme Disease Antibody Negative COVID-19 Source 11/03/21 15:15 WBC RBC Hgb Hct MCV MCH MCHC RDW Plt Count MPV Immature Gran % Neutrophils % Lymphocytes % Monocytes % Eosinophils % Basophils % Nucleated RBC % Absolute Neutrophils Absolute Lymphocytes Absolute Monocytes Absolute Eosinophils Absolute Basophils Sodium Potassium Chloride Carbon Dioxide Anion Gap BUN Creatinine Estimated GFR/1.73 m2 Glucose Calcium Lyme Disease Antibody COVID-19 Source Nasal/Nares
[2021-11-03] MEDS: Rosuvastatin 10 MG TAB 20 MG PO (20:11)
[2021-11-03] MEDS: Normal Saline Flush 10 ML SYR IVP ×2 (20:11→23:18)
[2021-11-03] MEDS: cefTRIAXone 1 GM/50 ML BAG IVPB (20:12)
[2021-11-03] MEDS: Enoxaparin 40 MG/0.4 ML SYR SC (23:15)
[2021-11-03] MEDS: Amitriptyline 25 MG TAB 50 MG PO (23:15)
[2021-11-04 01:53] LABS: COVID-19 PCR Negative (Negative)
[2021-11-04 02:51] VITALS: BP 131/80; PULSE 67; RESP 16; TEMP 37; O2SAT 97
[2021-11-04 06:41] VITALS: BP 124/71; PULSE 75; RESP 14; TEMP 36.6; O2SAT 97
[2021-11-04 07:00] VITALS: PULSE 74
[2021-11-04] MEDS: Lisinopril 10 MG TAB PO (07:44)
[2021-11-04] MEDS: Aspirin E.C. 81 MG TABEC PO (07:44)
[2021-11-04] MEDS: Gabapentin 600 MG TAB 300 MG PO ×2 (07:45→13:25)
[2021-11-04] MEDS: Pantoprazole 20 MG TABCR PO (07:45)
[2021-11-04] MEDS: Escitalopram 20 MG TAB PO (07:45)
[2021-11-04 11:00] VITALS: BP 106/71; PULSE 80; RESP 18; TEMP 37.1; O2SAT 95
[2021-11-04 11:11] VITALS: PULSE 81
[2021-11-04] MEDS: DOXYCYCLINE 100 MG in Normal Saline 100 ML IVPB (12:12)
--- NOTE | 2021-11-04 12:29 | DSE_ITS ---
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 On admission found to have large amount of leukocytes and red blood cells in urine Initiated on ceftriaxone. Urine and blood cx no growth after 24 hours. No leukocytosis, afebrile. Renal u/s revealing: Bilateral nonobstructing renal calculi are noted as described above.? Patient was unable to void and the bladder contains 291 cc. Therefore he is feeling better and being discharged home. He did receive 3 days of antibiotics. Ceftriaxone. (2) Dehydration: Start date: 11/04/21 Start time: : Status: Resolved Asessment and Plan: Hydrated with IVF now feeling better (3) Prerenal azotemia: Start date: 11/04/21 Start time: :30 Status: Resolved Asessment and Plan: Resolved, kidney function normalized (4) Acute kidney injury (nontraumatic): Start date: 11/04/21 Start time: :30 Status: Resolved Asessment and Plan: normalized. (5) Weakness: Status: Acute (6) Essential hypertension: Status: Acute (7) Tick bite: Start date: 11/04/21 Start time: :30 Status: Acute Asessment and Plan: continue home medications Discharge Plan Disposition Patient Disposition: HOME W/HOME HEALTH SERVICE Condition: Stable Discharge Details Reason For Visit: Generalized Weakness, EFRAÍN, UTI, Dehydration Admit Date/Time: 11/02/21 00:36 Admit Provider: Anam Ferraro Attending Provider: Anam Ferraro Primary Care Provider: Carlos Nguyen Hospital Course Hospital Course: 66-year-old male with a past medical history of essential hypertension, AAA, depression, migraines, GERD, depression, cervical spinal stenosis presented to the emergency department with complaints of weakness in his legs giving out.? Patient stated it had been going on for several months but day of admission he was more weak than usual.? He uses a walker to ambulate but was feeling lightheaded and had 2 falls prior to arrival.? Denied loss of consciousness and denied any associated shortness of breath or chest pain or abdominal pain nausea or vomiting. He did see his PCP day of admission and was told that he had a urinary tract infection and he was then sent to the emergency department. ? Patient is unvaccinated for COVID-19.? Does have a chronic cough but denies a fever or rigors.? Blood glucose prior to arrival was 89.? The PA who was attending to him in the emergency department noted that he had a dog tick crawling on him.? Lyme panel was ordered.? The ED personnel did a work-up including routine labs including CBC CMP troponins urinalysis and order chest x- ray CT scan of the head and added a tick panel.? Patient was given a bolus of IV fluids. Results of that work-up suggested that he had an acute urinary tract infection with a leukocytosis of 15,800, urinalysis that showed large amount of blood and large amount of white cells with greater than 50 white cells per high- powered field.? He was also noted to be dehydrated with a specific gravity greater than 1.030 with trace of protein and 15 mg/dL ketones.? CMP showed an elevated BUN 29 creatinine 1.8 with an anion gap of 12.8 with a carbon dioxide level 23 no other electrolyte abnormalities were found.? Troponin I levels were normal at less than 50x2 sets.? Transaminases were mildly elevated with an AST of 41 and ALT of 91 and a total bilirubin of 1.8.? Noncontrast CT scan of the head showed no acute intracranial findings.? Chest x-ray showed no acute cardiopulmonary process.? EKG demonstrated normal sinus rhythm with no acute ST elevation.? He had some nonspecific T wave abnormality in aVL and nonspecific ST changes in V5 V6.? Patient was noted to have frequent PVCs on monitor but these were not picked up on his EKG. He was admitted to /s, initiated on ceftriaxone. Urine cx was negative, blood cx were negative. He had a renal u/s see results in dx. He was given IV hydration his kidney function normalized and he is feeling much better. Lyme disease from panel negative. He was also on doxy for this. Will continue doxy for 2 weeks and if negative PCP can d/c. He is ready for dishcarge. He is being discharged with services PT/OT/RN, F/U with PCP in 2 weeks. Home Meds and New Rx's Prescriptions: New doxycycline hyclate 100 mg capsule 100 mg PO BID Qty: 28 0RF Bio-K plus 50 billion cell capsule,delayed release(DR/EC) 1 cap PO DAILY Qty: 30 0RF Continued (DME) Wheeled walker Qty: 1 0RF Rx Instructions: As directed amitriptyline 25 mg tablet 50 mg PO HS Qty: 90 3RF Rx Instructions: for chronic neck pain and sleep aspirin 81 mg tablet,delayed release (DR/EC) 81 mg PO DAILY Qty: 90 3RF escitalopram oxalate 20 mg tablet 20 mg PO DAILY Qty: 90 3RF etodolac 400 mg tablet 400 mg PO BID Qty: 180 3RF Rx Instructions: Neck Arthritis gabapentin 600 mg tablet 600 mg PO TID 90 Days Qty: 270 3RF lisinopril 10 mg tablet 10 mg PO DAILY Qty: 90 3RF Rx Instructions: For blood pressure control pantoprazole 20 mg tablet,delayed release (DR/EC) 20 mg PO DAILY Qty: 90 3RF Rx Instructions: Take 20 mg daily once daily in the morning at least 30-60 minutes before first meal of the day rosuvastatin [Crestor] 20 mg tablet 20 mg PO DAILY Qty: 90 3RF acetaminophen 325 mg capsule 650 mg PO Q6H PRN0RF Discharge Instructions Instructions: Weakness (DC), Tick Bite (GEN) Additional Instructions: F/u with PCP in 2 weeks HH services with PT/OT/RN Continue doxycyline for possible tick disease, d/t weakness also ordered bio-k to help protect gut Stand Alone Forms: Nursing Discharge Form Referrals: Carlos Nguyen DO [Primary Care Provider] - 11/14/21 10:30 am Activity:: Activity as Tolerated Equipment/Supplies:: No Equipment Needed Diet:: Low Sodium Discharge Orders Discharge Orders: Discharge Order (Routine); Ordered 11/04/21 Ordered By: Janine Mtz DS: Summary Time Spent with Patient providing and/or coordinating discharge services: Less than 30 minutes Status at Discharge Functional status at discharge: uses cane/walker Overall status at discharge: patient is progressing back to baseline Mental Status: mental status grossly normal Speech and Movement: speech and movement normal Mood: congruent mood Affect: normal affect Exam Const General: cooperative, comfortable, frail appearing and ill appearing chronically Nutritional Appearance: overweight Orientation: alert, awake and oriented x3 HENMT Head: normal to inspection, normocephalic and atraumatic Mouth: oral mucosae normal Resp Effort & Inspection: normal respiratory effort Cardio Rate: regular rate Rhythm: regular rhythm GI Palpation: soft Auscultation: normal bowel sounds Neuro General: patient alert, patient awake and patient oriented x3 Speech: abnormal speech slurred Gait: gait assisted Method: walker Motor: muscle tone normal throughout Extrem General: normal to inspection and full ROM Psych Mental Status: mental status grossly normal Speech and Movement: speech and movement normal Mood: congruent mood Affect: normal affect DS: Data Vitals/I&O Vitals and I&O: Vital Signs Temperature 37.1 C 11/04/21 11:00 Temperature Source Tympanic 11/04/21 11:00 Pulse 81 11/04/21 11:11 Pulse Rhythm Regular 11/04/21 11:11 Pulse 79 11/02/21 05:40 Respiratory Rate 18 11/04/21 11:00 Respiratory Effort 11/04/21 11:11 Respiratory Depth Normal 11/04/21 11:11 Respiratory Pattern Normal 11/04/21 11:11 Blood Pressure 106/71 11/04/21 11:00 Blood Pressure Mean 86 11/01/21 22:45 Blood Pressure Position Supine 11/01/21 16:02 Pulse Oximetry 95 11/04/21 11:00 Oxygen Delivery Method Room Air 11/04/21 11:00 Oxygen Flow Rate 0 11/04/21 11:00 Pain Level 0 11/04/21 02:51 Intake & Output 11/03/21 11/04/21 11/04/21 23:59 11:59 23:59 Intake Total 270 / 1045.083 640 / 640 Output Total 675 / 2375 705 / 705 Balance -405 / -1329.917 -65 / -65 Weight 96.1 kg Intake: IV 150 / 325.083 100 / 100 Oral 120 / 720 540 / 540 Output: Urine 675 / 2375 705 / 705 Other: Urine Color Yellow Yellow Urine Appearance Clear Clear Urine Odor Normal Normal Comment Patient declined Voiding Methods Urinal Urinal Incontinent Data Completed and Pending Completed studies during hospitalization [Text1]: FINDINGS: There appears to be mild generalized cerebral atrophy. No evidence of acute intracranial hemorrhage, mass effect, or midline shift. The orbital structures are unremarkable. The temporal bone structures appear intact. Calvarium: Normal. Visualized Paranasal sinuses/Mastoids: Clear. IMPRESSION: No evidence of acute intracranial process. FINDINGS: LUNGS: Clear. No pleural abnormality seen. HEART: Normal. MEDIASTINUM: Normal. OTHER FINDINGS: None. IMPRESSION: No acute pulmonary findings. FINDINGS: Lungs: Clear lungs. Pleural spaces: No sizable pleural effusion. No pneumothorax. Heart/Mediastinum: Cardiomediastinal silhouette is within normal limits. Bones/joints: No acute displaced fracture or dislocation. IMPRESSION: No acute cardiopulmonary process. FINDINGS: Brain: No evidence of acute infarct, acute hemorrhage, or intracranial mass. Cerebral ventricles: No hydrocephalus. Paranasal sinuses: Partially visualized small mucous retention cyst right maxillary sinus. Paranasal sinuses otherwise clear. Mastoid air cells: Mastoid air cells appear clear. Vasculature: Vascular calcifications. Bones/joints: No acute skull fracture Soft tissues: Unremarkable superficial soft tissues IMPRESSION: No acute intracranial findings FINDINGS: Kidneys are normal in size and shape.? There is no evidence of a renal mass or hydronephrosis.? There is there are bilateral small lower pole echogenic foci, each measuring about 5 millimeters in diameter with posterior acoustic shadowing and twinkle artifact indicating that these are likely to be nonobstructing renal stones. Ureteral jets were nonvisualized.? Bladder is unremarkable in appearance, bladder contains 291 cc of urine and the patient was unable to void. IMPRESSION: Bilateral nonobstructing renal calculi are noted as described above.? Patient was unable to void and the bladder contains 291 cc. 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 [facility] [place] AAA (abdominal aortic aneurysm) (Acute) Depressive disorder (Chronic 09/23/05) DEPRESSION 2006 Ambulatory dysfunction (Acute) Chronic pain (Chronic) hip, left Emphysema lung (Acute) Pulmonary nodule (Chronic) Tobacco use disorder, moderate, dependence (Chronic 09/23/05) CHRONIC SMOKER <2006; 1 PPD Spinal stenosis in cervical region (Chronic 01/01/90) NECK PAIN, 01/1990 DR ALMAS Santo-6 INTO L ARM; neurontin for neuropathic pain 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 Generalized anxiety disorder (Acute 01/02/12) fluoxetine since at least 2005 Gastroesophageal reflux disease (Acute 04/10/17) Medical History Chronic left hip pain Surgical History History of knee surgery Family History Mother , stroke at age 70. Diabetes Essential hypertension Stroke Father , surgical complicatio at age 56. No problems noted. Sister No problems noted. Sister No problems noted. Brother No problems noted. Brother No problems noted. Brother , Blood disease at age 64. No problems noted. Brother Essential hypertension Brother No problems noted. Social History Smoking/Tobacco Use Status: Current every day Tobacco Type: cigarettes Smoking risk assessment performed?: Yes Alcohol Intake: former Drug use: Never Substance use type: does not use Adopted: No Foster care: No Housing: apartment Number of Children: 1 current occupation: [employer] What type of physical activity do you participate in: walking Do you feel safe at home: Yes Do you feel safe in your relationship?: Yes Additional Social history: Patient is , with one daughter. He is a grandfather of 4. He has a 50 approximate pack-year history of smoking, but denies alcohol use.
--- NOTE | 2021-11-04 13:07 | PDOC.HHF2F ---
Home Health Certification Home Health Certification: 1. Encounter Date and Reason I certify that Alex Roberson was seen by Janine Mtz on 11/04/21 and that I had a [id number] encounter with this patient that meets the physician face to face encounter requirements. 2. Clinical Findings Supporting Skilled Need and Homebound Status I certify that home health services are medically necessary, include either intermittent senior living and/or physical/speech therapy, and that this patient is homebound in that absences from the home require considerable and taxing effort and are infrequent or of short duration, or are attributable to the need to receive medical care. [X] (a) Attached documentation from encounter provides clinical findings supporting skilled need and homebound status (including what assistance patient requires to leave the home). The encounter with the patient was in whole, or in part, for the following medical condition, which is the primary reason for home health care: Generalized Weakness, EFRAÍN, UTI, Dehydration Longterm: Patient would benefit from nursing to help with adls, with weakness, etc Physical Therapy/ OT: Patient would benefit from PT/OT to help with weakness stability, ability to mobilize and stabilize with adl, etc. Homebound: Unable to leave home without assistance 3. Certification and Authentication I certify that I composed the above information based on my clinical judgement relating to this patient's medical condition and, if applicable, clinical findings communicated to me by the NPP or inpatient physician who performed the Home Health Referral. All further orders will be obtained through __Carlos John (Community Based Physician - PCP)
[2021-11-04 13:26] VITALS: PULSE 90
--- NOTE | 2021-11-04 13:28 | PT.INTREAT ---
PT Notes Visit Reasons: Generalized Weakness, EFRAÍN, UTI, Dehydration Inpatient Physical Therapy Treatment Note [facility] Date: 11/04/21 SUBJECTIVE: Alex states that he thinks he is going home later today. He indicated that he is feeling better. OBJECTIVE: [] BED MOBILITY/TRANSFERS pt sitting up in recliner Sit-stand: SBA/S Stand-sit: SBA/S GAIT Assistive Device: FWW Weight bearing: FWB Assist: SBA/S Distance: 400' no rest breaks needed today. THEREX: general chair ex for [employer]. Added in some mini squats and heel raises. See flowsheet for details. ASSESSMENT: tolerated session well. No LOB or SOB noted. Strength gains noted as he was able to progress his program. PLAN: pt d/c to home with services. TREATMENT CODE/TIME: 25 min. [id number], [id number].
--- NOTE | 2021-11-04 16:19 | PDOC.CMDIS ---
- If Service Date Differs Date of service: 11/04/21 Time of Service: 16:19 LACE Index Scoring Tool - Questions: Length of Stay (in days): 2 Acuity (Admit via E.D.?): Yes E.D. Visits: 1 - Answers: Total Score: 6 Risk of Readmission: Low Risk Care Management Discharge Reason for Hospitalization: Generalized weakness, UTI, EFRAÍN, dehydration Discharge Plan: Alex returned home today with new orders for HH RN, PT, OT. CM informed [facility] of his discharge today. He was transported home via [facility] private vehicle. He will follow up with his PCP and discharge plan of care. He was happy to be returning home. Patient/Family Education Needs: Review discharge instructions regarding activity levels and medications, discussion of self care needs including ask me three. Services Needed at Discharge: Home Health Care Services (HH RN, PT, OT), Transportation ([facility] private vehicle)
--- NOTE | 2021-11-04 19:00 | PT.INDS ---
Date of service: 11/04/21 PT Notes Visit Reasons: Generalized Weakness, EFRAÍN, UTI, Dehydration Physical Therapy Inpatient Discharge Summary Date: 11/04/2021 Dates of service: 11/02/2021 through 11/04/2021 This is a clinical summary of care provided for the duration of dates listed above. No charge was made in the completion of this documentation. Precautions: Fall. Standard. Activity as tolerated. Subjective: NT. See most recent CS ASSOCIATE notes. Objective: General Observation: NT. See most recent CS ASSOCIATE notes. Mental Status: NT. See most recent CS ASSOCIATE notes. Pain: NT. See most recent CS ASSOCIATE notes. ROM: Right Upper Extremity: ? Shoulder Flexion WFL. Shoulder abduction WFL. Elbow flexion WFL. Wrist flexion WFL. Functional opening and closing of hand WFL. Left Upper Extremity:? Shoulder Flexion WFL. Shoulder abduction WFL. Elbow flexion WFL. Wrist flexion WFL. Functional opening and closing of hand WFL. Right Lower Extremity: Hip flexion WFL. Hip abduction WFL. Knee flexion WFL. Ankle dorsiflexion WFL. Ankle plantarflexion WFL. Left Lower Extremity: Hip flexion WFL. Hip abduction WFL. Knee flexion WFL. Ankle dorsiflexion WFL. Ankle plantarflexion WFL. Strength: Right Upper Extremity: Shoulder flexors 5/5. Shoulder abductors 5/5. Elbow flexors 5/5. Elbow extensors 5/5. Sound Recording Technician strong. Left Upper Extremity: Shoulder flexors 5/5. Shoulder abductors 5/5. Elbow flexors 5/5. Elbow extensors 5/5. Sound Recording Technician strong. Right Lower Extremity: Hip flexors 4/5. Hip abductors 4/5. Knee flexors 5/5. Knee extensors 4/5. Ankle dorsiflexors 4/5. Ankle plantarflexors 4/5. Left Lower Extremity: Hip flexors 4/5. Hip abductors 4/5. Knee flexors 5/5. Knee extensors 4/5. Ankle dorsiflexors 4/5. Ankle plantarflexors 4/5. Bed Mobility/Transfers: Sit to stand with standby assist Stand to sit with standby assist Bed to reclining chair with standby assist Gait: Instructed patient with level surface ambulation of 400 feet requiring stand by assist. Bobbi decreased.? Verbal cues provided for walker management.? Wheelchair follow provided due to previous reports of dizziness and falls.? Reported back pain towards the end of activity has subsided with rest. Balance: Static Sitting: Normal Dynamic Sitting: Normal Static Standing: Fair Dynamic Standing: Fair Assessment: Alex demonstrates functional mobility decline requiring the use of front wheeled walker for all mobility ADL performance at all times to reduce fall risk.? Patient presents with clinical signs and symptoms consistent with current/admitting diagnoses that have resulted to mobility limitations, gait instability, generalized weakness, and overall ADL decline as demonstrated by the following impairment level findings: 1.? Decreased strength to BLEmajor muscle groups 2.? Impaired standing balance 3.? Impaired activity tolerance Impairments are contributing to the following functional limitations: 1.? Difficulty with ambulation without assistive device and physical assistance 2.? Increased completion time for mobility ADL performance 3.? Increased risk for falls 4.? Difficulty with managing steps alone safely Goals: Goals X1 week 1. Supine-Sit independent NOT MET 2. Sit-Supine independent NOT MET 3. Sit-Stand independent NOT MET 4. Stand-Sit independent with 4WW NOT MET 5. Bed-Chair independent with 4WW NOT MET 6. Chair-Bed independent with 4WW NOT MET 7. Independent gait on level surface with use of 4WW for at least 300 feet without report of pain nor dyspnea NOT MET 8. Independent stair negotiation while holding onto no rails for at least 3 steps without report of pain nor dyspnea NOT MET 9. Good static and dynamic standing balance/tolerance NOT MET DISCHARGE RECOMMENDATIONS: [] ? Home with no services [] [] ? Home with services [specify] [] ? Home with outpatient PT [] [] ? SNF for continued rehabilitation [] [] ? Jail Care [] [] ? SNF versus LTC based on ability to participate and progress [] [] ? SNF versus PT based on ability to participate and progress. Will update CM for most apporpriate D/C destination. TREATMENT CODE/TIME: CT Thank you for the opportunity to participate in the care of this patient. Heather Song PT, DPT, CLT [facility] [place], [place]
[2021-11-04 19:56] LABS: Anaplasma phagocytophilum Negative (Negative); B. miyamotoi PCR Negative (Negative); Babesia divergens/MO-1 Negative (Negative); Babesia duncani Negative (Negative); Babesia microti Negative (Negative); Ehrlichia chaffeensis Negative (Negative); Ehrlichia ewingii/canis Negative (Negative); Ehrlichia muris eauclairensis Negative (Negative)
== END 2021-11-04 14:16 | disposition home health service (06) | DRG 683 ==
LOC: ER 21:04 → MS 11-02 02:08
PROVIDERS: Nurse Practitioner Acute Care; Nurse Practitioner Family; Admitting Provider Internal Medicine; Emergency Provider Registered Nurse Emergency; PCP Family Medicine; Visit Provider Internal Medicine
DX: N39.0 Urinary tract infection, site not specified (principal); N17.9 Acute kidney failure, unspecified; E86.0 Dehydration; R53.1 Weakness; I95.1 Orthostatic hypotension; I10 Essential (primary) hypertension; I71.4 Abdominal aortic aneurysm, without rupture; F32.A Depression, unspecified; K21.9 Gastro-esophageal reflux disease without esophagitis; W18.39XA Other fall on same level, initial encounter; Z91.81 History of falling; J43.9 Emphysema, unspecified; F17.210 Nicotine dependence, cigarettes, uncomplicated; R91.1 Solitary pulmonary nodule; G43.009 Migraine without aura, not intractable, without status migrainosus; I72.3 Aneurysm of iliac artery; E78.5 Hyperlipidemia, unspecified; F41.1 Generalized anxiety disorder; M48.02 Spinal stenosis, cervical region; F80.81 Childhood onset fluency disorder; T14.8XXA Other injury of unspecified body region, initial encounter; W57.XXXA Bitten or stung by nonvenomous insect and other nonvenomous arthropods, initial encounter
CPT/HCPCS: 36415; 51702; 76770; 80048; 80053; 84145; 85027; 87040; 87635; 87798; 93005; 96361; 96365; 97110; 97162; 97530; 99285; J1650; U0005; 70450; 71045; 81003; 81015; 83605; 83735; 84443; 84484; 85025; 86618; 87086; 93010; 99222; 99232; 99233; 99238; J0696

== ENCOUNTER → 2021-12-12 01:32 | Outpatient (CLI) | payer MEDICARE, MEDICAID, SELFPAY ==
--- NOTE | 2021-12-12 07:30 | DI.RAD_ITS ---
Exam(s) XR LUMBAR SPINE COMPLETE EXAM: XR LUMBAR SPINE COMPLETE CLINICAL HISTORY: Long standing sciatica, BACK PAIN, M54.30. TECHNIQUE: 2D digital imaging was performed. COMPARISON: No exams were available for comparison FINDINGS: There is a stent in the distal aorta and bilateral lateral iliac arteries somewhat obscuring the spin e on the AP view. Vertebral bodies are well maintained in height. There is mild narrowing of the L1 -2 disc space the remaining disc spaces are well maintained. There are endplate osteophytes greatest at L1-2. There are mild facet degenerative changes from L3-4 through L5-S1.. No spondylolysis or s pondylolisthesis. There is a mild levoscoliosis. IMPRESSION: Degenerative disc changes, greatest at L1-2. Facet degenerative changes in the lower lumbar region. DATA REPOSITORY: RADIATION DOSE DELIVERED:
== END ==
PROVIDERS: PCP Family Medicine; Visit Provider Family Medicine
DX: M51.16 Intervertebral disc disorders with radiculopathy, lumbar region; M25.78 Osteophyte, vertebrae; M47.27 Other spondylosis with radiculopathy, lumbosacral region
CPT/HCPCS: 72110

== ENCOUNTER → 2022-01-11 00:43 | Outpatient (CLI) | payer MEDICARE, MEDICAID, SELFPAY ==
--- NOTE | 2022-01-11 08:00 | DI.MRI_ITS ---
Exam(s) MR LUMBAR SPINE WO EXAM: MR LUMBAR SPINE WO CLINICAL HISTORY: Persistent L sided sciatic pain,m54.30. TECHNIQUE: Multiplanar multisequence MRI of the Lumbar spine was performed. COMPARISON: CT CT THORAX ABDOMEN CTA from 10/24/2020 CR XR LUMBAR SPINE COMPLETE from 12/12/2021 FINDINGS: Bones: The last intervertebral disc space is designated the L5/S1 level for the numbering purpose of this examination. The vertebral body heights are well maintained. Alignment is satisfactory. The ma rrow signal characteristics are unremarkable. Cord: The conus tip ends at the T12 level. It is of normal size and signal intensity. T12-L1: No disc herniations or bulges are present. No central spinal canal or neural foraminal stenos is. L1-2: Minimal disc bulging. Osteophytes projecting anteriorly.. No central spinal canal or neural f oraminal stenosis. L2-3: Minimal disc bulging.. No central spinal canal or neural foraminal stenosis. L3-4: Mild disc bulging. Mild facet joint degenerative changes. Mild bilateral neural foraminal patrick rowing. No central spinal canal stenosis. L4-5: Minimal disc bulging. Mild bilateral facet degenerative changes. Mild bilateral neural forami nal narrowing. No central spinal canal stenosis. L5-S1: No disc herniations or bulges are present. No central spinal canal or neural foraminal stenosi s. Soft tissues: The visualized SI joints and sacrum are well maintained. The paraspinal soft tissues ar e unremarkable. Bilateral dilatation of the iliac arteries with stents in place. IMPRESSION: Mild degenerative disc changes and facet degenerative changes cause mild bilateral neural foraminal n arrowing. No focal disc herniation or central canal stenosis.. DATA REPOSITORY:
== END ==
PROVIDERS: PCP Family Medicine; Visit Provider Family Medicine
DX: M51.17 Intervertebral disc disorders with radiculopathy, lumbosacral region; M47.26 Other spondylosis with radiculopathy, lumbar region
CPT/HCPCS: 72148

== ENCOUNTER 2023-08-12 11:45 | Emergency (ER) | payer MEDICARE, MEDICAID, SELFPAY ==
[2023-08-12 11:53] VITALS: BP 119/84; PULSE 104; RESP 15; TEMP 36.8; O2SAT 98
--- NOTE | 2023-08-12 12:44 | W.ED.GENAD ---
Discharge Plan Disposition Patient Disposition: Home Condition: Stable Discharge Details Clinical Impression: Disease of gingiva due to infection Primary Care Provider: Carlos Nguyen ED Provider: Mukesh Young Home Meds and New Rx's Prescriptions: New amoxicillin-pot clavulanate 875-125 mg tablet 1 tab PO BID 10 Days Qty: 20 0RF Continued (DME) Wheeled walker Qty: 1 0RF Rx Instructions: As directed acetaminophen 325 mg capsule 650 mg PO Q6H PRN (Reason: fever or pain) Qty: 180 3RF amitriptyline 25 mg tablet 50 mg PO HS Qty: 180 3RF Rx Instructions: for chronic neck pain and sleep aspirin 81 mg tablet,delayed release (DR/EC) 81 mg PO DAILY Qty: 90 3RF escitalopram oxalate 20 mg tablet 20 mg PO DAILY Qty: 90 3RF gabapentin 600 mg tablet 600 mg PO TID 90 Days Qty: 270 3RF lisinopril 10 mg tablet 10 mg PO DAILY Qty: 90 3RF Rx Instructions: For blood pressure control omeprazole 40 mg capsule,delayed release(DR/EC) 40 mg PO DAILY Qty: 90 3RF rosuvastatin [Crestor] 20 mg tablet 20 mg PO DAILY Qty: 90 3RF meloxicam 15 mg tablet 15 mg PO DAILY Qty: 90 3RF Bio-K plus 50 billion cell capsule,delayed release(DR/EC) 1 cap PO DAILY Qty: 30 0RF Discharge Instructions Instructions: Amoxicillin/Clavulanate Potassium (By mouth), Gingivostomatitis (ED) Additional Instructions: You were seen in the emergency department for your gum infection. You are also being treated for thrush or yeast infection of your tongue, please continue your nystatin solution as directed. I have sent tablets of Augmentin and antibiotic use to treat dental infections to [facility] in [place]. Take this as directed. Use Tylenol and ibuprofen for pain, salt water gargles can help inhibit bacterial growth in the mouth. Please return for any loss of voice, difficulty opening your mouth and excessive drooling. Please use therapeutic dosing of Tylenol (acetamenophen) & Advil (ibuprofen) in an alternating fashion as follows: Take 1000mg of Tylenol every 6 hours without missing doses- that is 4 times per day. Mcc in between the Tylenol dosings, take 400-600mg of Advil also on a 6 hour schedule, that is also 4 times per day. The daily maximum dosing of Tylenol is 4000mg, and the daily maximum dosing of Advil is 2400mg. This is safe to do for weeks. Please note that some common cold medications & prescription pain medications may contain acetamenophen and you need to read OTC drug labels and factor that in to maximum daily dosings. Referrals: Carlos Nguyen DO [Primary Care Provider] - Medical Decision Making This dictation utilizes [id number] dictation software and may contain unedited grammatical errors. 68 y/o M presents to ED today with a chief complaint of oral pain, R upper gums. Onset and characteristics include onset for a while, has been being treated for thrush- notes his gums hurt, and when you press on his R cheek it hurts, denies fever, no trismus. Patients' medical history: noncontributory. Family and social history: noncontributory. Pertinent exam findings / vital signs include ENT: Nares patent, no circumoral cyanosis, no facial swelling Gingival erythema without fluctuant abscess, no dentition, uvula midline, no unilateral tonsillar swelling, no major lymphadenopathy, right maxillary sinus tenderness, no severe vocal changes, managing secretions, no trismus. Differential / pathologies of concern include gingival infection, sinusitis, not PROPERTY ASSESSMENT MONITOR. Diagnostic studies of: -none. Interventions of: -outpatient Rx. ED Course/Assessment/Plan: 68-year-old male with all teeth extracted presents with right upper gingival pain without visible gingival abscess, he has tenderness over the right maxillary sinus, I did treat him with outpatient Augmentin to cover both possible infections. I advised him to return for inability to range his jaw, poor p.o. intake, worsening fevers despite treatment. Findings not consistent with PROPERTY ASSESSMENT MONITOR, epiglottitis, trismus, abscess. Disposition of Disease of Gingiva due to Infection Patient verbalized understanding of the plan and return to ED criteria and engaged in shared decision making. Medical Records Medical records reviewed: Yes I reviewed the patient's medical records. HPI General Date/Time Provider Initiated Documentation: 08/12/23 12:44. HPI Narrative: 68 year-old male presents to ED today by POV/ambulating with a chief complaint of oral pain, R upper gums with onset noted for a while. Quality described as generalized ache, no radiation to inability to drink, inability to open jaw, fever, redness, facial swelling, vocal changes. Severity is described as moderate. Palliating factors include being treated for thrush currently with nystatin solution. Provoking factors include nothing specific. Events leading up to the incident/Associated Symptoms: Patient denies neck stiffness, denies cough/URI symptoms. Patient not anticoagulated. Related Data Home Medications Medication Instructions Recorded Confirmed Wheeled walker #1 ea 04/18/19 08/12/23 L. acidophilus,casei,rhamnosus 50 1 cap PO DAILY #30 caps 11/04/21 08/12/23 billion cell capsule,delayed release (Bio-K plus) acetaminophen 325 mg capsule 650 mg (2 x 325 mg) PO Q6H PRN 10/26/22 08/12/23 fever or pain #180 caps amitriptyline 25 mg tablet 50 mg (2 x 25 mg) PO HS #180 tabs 10/26/22 08/12/23 aspirin 81 mg tablet,delayed 81 mg PO DAILY #90 tab-caps 10/26/22 08/12/23 release escitalopram oxalate 20 mg tablet 20 mg PO DAILY #90 tabs 10/26/22 08/12/23 gabapentin 600 mg tablet 600 mg PO TID 90 days #270 tab-caps 10/26/22 08/12/23 lisinopril 10 mg tablet 10 mg PO DAILY #90 tabs 10/26/22 08/12/23 omeprazole 40 mg capsule,delayed 40 mg PO DAILY #90 caps 10/26/22 08/12/23 release rosuvastatin 20 mg tablet (Crestor) 20 mg PO DAILY #90 tabs 10/26/22 08/12/23 meloxicam 15 mg tablet 15 mg PO DAILY #90 tabs 11/13/22 08/12/23 amoxicillin 875 mg-potassium 1 tab PO BID oral infection 10 08/12/23 clavulanate 125 mg tablet days #20 tabs Previous Rx's Medication Instructions Recorded Wheeled walker #1 ea 04/18/19 L. acidophilus,casei,rhamnosus 50 1 cap PO DAILY #30 caps 11/04/21 billion cell capsule,delayed release (Bio-K plus) acetaminophen 325 mg capsule 650 mg (2 x 325 mg) PO Q6H PRN 10/26/22 fever or pain #180 caps amitriptyline 25 mg tablet 50 mg (2 x 25 mg) PO HS #180 tabs 10/26/22 aspirin 81 mg tablet,delayed 81 mg PO DAILY #90 tab-caps 10/26/22 release escitalopram oxalate 20 mg tablet 20 mg PO DAILY #90 tabs 10/26/22 gabapentin 600 mg tablet 600 mg PO TID 90 days #270 tab-caps 10/26/22 lisinopril 10 mg tablet 10 mg PO DAILY #90 tabs 10/26/22 omeprazole 40 mg capsule,delayed 40 mg PO DAILY #90 caps 10/26/22 release rosuvastatin 20 mg tablet (Crestor) 20 mg PO DAILY #90 tabs 10/26/22 meloxicam 15 mg tablet 15 mg PO DAILY #90 tabs 11/13/22 amoxicillin 875 mg-potassium 1 tab PO BID oral infection 10 08/12/23 clavulanate 125 mg tablet days #20 tabs Allergies Allergy/AdvReac Type Severity Reaction Status Date / Time tetanus and diphtheria AdvReac Intermediate severe Verified 08/12/23 11:56 toxoids muscle pain x 2 weeks after injection on 09/2012 General Stated Complaint: DentalOral SORAYA: 4 Review of Systems All systems reviewed & are unremarkable except as noted in HPI and below PFSH All Active Problems (Updated 08/12/23 @ 12:46 by RONDA Angel) Disease of gingiva due to infection (Acute) Osteoarthritis of right foot (Acute) Nail dystrophy (Acute) Toe pain, left (Acute) Toe pain, right (Acute) Sciatica (Acute) Onychogryphosis (Acute) Learning disability (Acute) 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 [facility] [place] AAA (abdominal aortic aneurysm) (Acute) Depressive disorder (Chronic 09/23/05) DEPRESSION 2005 Ambulatory dysfunction (Acute) Chronic pain (Chronic) hip, left Emphysema lung (Acute) Pulmonary nodule (Chronic) Tobacco use disorder, moderate, dependence (Chronic 09/23/05) CHRONIC SMOKER <2005; 1 PPD Spinal stenosis in cervical region (Chronic 01/01/90) NECK PAIN, 01/1990 DR COBURN C-6 INTO L ARM; neurontin for neuropathic pain 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 Generalized anxiety disorder (Acute 01/02/12) fluoxetine since at least 2005 Gastroesophageal reflux disease (Acute 04/10/17) Medical History Chronic left hip pain Essential hypertension Surgical History History of knee surgery Family History Mother , stroke at age 70. Diabetes Essential hypertension Stroke Father , surgical complicatio at age 56. No problems noted. Sister No problems noted. Sister No problems noted. Brother No problems noted. Brother No problems noted. Brother , Blood disease at age 64. No problems noted. Brother Essential hypertension Brother No problems noted. Social History Smoking/Tobacco Use Status: Current every day Tobacco Type: cigarettes Smoking risk assessment performed?: Yes Alcohol Intake: former Drug use: Never Substance use type: does not use Adopted: No Foster care: No Housing: apartment Number of Children: 1 current occupation: [employer] What type of physical activity do you participate in: walking Do you feel safe at home: Yes Do you feel safe in your relationship?: Yes Additional Social history: Patient is , with one daughter. He is a grandfather of 4. He has a 50 approximate pack-year history of smoking, but denies alcohol use. Exam Narrative Exam Narrative: GENERAL APPEARANCE: Well-nourished, non-toxic, awake and alert, atraumatic, no acute distress. SKIN: Warm, pink, dry, intact, without rashes/lesions/ulcerations. HEAD: Normocephalic, atraumatic, normal hair distribution for gender/age. EYES: Pupils PERRLA, EOMs intact without nystagmus, normal conjunctiva, no exudates on lids/lashes. ENT: Nares patent, no circumoral cyanosis, no facial swelling Gingival erythema without fluctuant abscess, no dentition, uvula midline, no unilateral tonsillar swelling, no major lymphadenopathy, right maxillary sinus tenderness. NECK: Supple, trachea midline, painless cervical ROM. LUNGS/CHEST: Non-labored respirations, normal A/P diameter, symmetrical expansion, no chest wall deformity HEART (CV/PV): No peripheral edema, no JVD. ABDOMEN: Soft, non-distended, no guarding. MSK: Normal ROM, no swelling/deformity to bilateral UEs or LEs, moving all extremities without weakness, no cyanosis, spine midline without tenderness, normal curvature. NEURO: Mental Status AAOx4 - alert to person, place, time, events No facial droop, no forehead involvement. Motor: No focal weakness - strength 5/5 in bilateral UEs and LEs, proximal and distal, symmetric. Sensory: sensation intact to light touch globally. Gait normal: patient ambulated without ataxia into ED room. PSYCH: euthymic, cooperative, pleasant, appropriate speech Course Vital Signs Vital signs: Vital Signs Temperature 36.8 C 08/12/23 11:53 Pulse 104 H 08/12/23 11:53 Respiratory Rate 15 08/12/23 11:53 Blood Pressure 119/84 08/12/23 11:53 Pulse Oximetry 98 08/12/23 11:53 Temperature 36.8 C 08/12/23 11:53 Temperature Source Temporal Artery Scan 08/12/23 11:53 Pulse 104 H 08/12/23 11:53 Respiratory Rate 15 08/12/23 11:53 Blood Pressure 119/84 08/12/23 11:53 Blood Pressure Position Sitting 08/12/23 11:53 Pulse Oximetry 98 08/12/23 11:53 Oxygen Delivery Method Room Air 08/12/23 11:53 Oxygen Flow Rate 0 08/12/23 11:53 Pain Level 10 08/12/23 11:53
== END 2023-08-12 12:55 | disposition home or self-care (01) ==
PROVIDERS: Emergency Provider Physician Assistant; PCP Family Medicine
DX: K06.8 Other specified disorders of gingiva and edentulous alveolar ridge (principal)
CPT/HCPCS: 99283; 99284

== ENCOUNTER 2023-08-21 16:28 | Emergency (ER) | payer MEDICARE, MEDICAID, SELFPAY ==
[2023-08-21] VITALS (41 sets, daily range): BP systolic 86–129; BP diastolic 64–84; PULSE 67–144; RESP 18–25; TEMP 36.5; O2SAT 92–100
--- NOTE | 2023-08-21 16:30 | RT.EKG_ITS ---
APPROVED REPORT Exam: Resting ECG Reason for Exam: dizziness Patient Location: E HR:79 bpm ECG Measurements Heart Rate 79 AXIS SC 157 P 62 QRSd 100 QRS 6 QT 398 T 74 QTc 457 Conclusion Sinus rhythm...normal P axis, V-rate 60- [address] depression, diffuse leads...ST <-0.03mV, ant/lat/inf Normal sinus rhythm at a rate of 79 with interventricular conduction delay and a QRS of 100 ms. Left axis deviation no signs of LVH. Significant artifact. Mild diffuse ST segment depressions which ap pear similar to prior. Prior dated last year. QTc and SC intervals within normal limits. New janis red to prior is interventricular conduction delay.
[2023-08-21] MEDS: Lactated Ringers 1,000 ML 1000 ML IV ×2 (17:00→18:55)
[2023-08-21 18:55] LABS: Abs Immature Grans 0.05 10^3/uL (0.0-0.06); Absolute Basophil Count 0.07 10^3/uL (0.0-0.2); Absolute Eosinophil Count 0.14 10^3/uL (0.0-0.7); Absolute Lymphocyte Count 1.68 10^3/uL (1.2-3.4); Absolute Monocyte Count 0.76 10^3/uL (0.1-0.8); Absolute Neutrophil Count 9.06 10^3/uL (1.2-6.7); Basophils % 0.6; Eosinophils % 1.2; HCT 40.7 % (40.0-50.0); Immature Grans % 0.4; Lymphocytes % 14.3; MCH 30.6 pg (27.0-33.0); MCHC 34.4 % (32.0-36.0); MCV 89 fL (80-95); MPV 12.4 fL (8.0-11.0); Monocytes % 6.5; Platelet Count 112 10^3/uL (130-400); RBC 4.58 10^6/uL (4.36-5.78); RDW 13.5 % (11.8-14.1); RDW-SD 43.7 fL; WBC 11.76 10^3/uL (4.4-10.8)
[2023-08-21 19:09] LABS: Anion Gap 6.7 mmol/L (3-11); BUN 11 mg/dL (7-18); CO2 28.3 mmol/L (21.0-32.0); CREATININE 1.3 mg/dL (0.70-1.30); Calcium 8.7 mg/dL (8.5-10.1); Chloride 106 mmol/L (98-107); Estimated GFR 59.84 (mL/min/1.73m2); Glucose 100 mg/dL (74-106); Sodium 141 mmol/L (136-145)
[2023-08-21 19:12] LABS: Potassium 2.9 mmol/L (3.5-5.1)
[2023-08-21 19:13] LABS: Bilirubin Negative (Negative); Blood Moderate (Negative); Clarity Clear (Clear); Glucose Negative (Negative); Ketones Negative (Negative); Leukocyte Esterase Negative (Negative); Nitrite Negative (Negative); Specific Gravity 1.015 (1.005-1.025); Urobilinogen 0.2 mg/dL (Up to 0.2)
[2023-08-21] MEDS: Potassium Chloride 20 MEQ TABCR 40 MEQ PO (19:29)
[2023-08-21 19:30] LABS: Bacteria Negative HPF (Negative); Epithelial Cells Rare HPF (Negative); Other Cells Rare Renal (Negative); WBC 0-2 HPF (0-5)
[2023-08-21 19:31] LABS: C & S Indicated? No; Casts 0-2 Hyaline LPF (Negative); Crystals Mod Calcium Oxalate HPF (Negative); Mucus Moderate (Negative)
[2023-08-21 19:41] LABS: Magnesium 1.9 mg/dL (1.8-2.4)
[2023-08-21 19:42] LABS: Procalcitonin < 0.1 ng/mL
--- NOTE | 2023-08-21 20:11 | W.ED.GENAD ---
Discharge Plan Disposition Patient Disposition: Home Condition: Improving Discharge Details Clinical Impression: Acute dehydration, Oral thrush Primary Care Provider: Carlos Nguyen ED Provider: Shaista Noble Home Meds and New Rx's Prescriptions: New potassium chloride 20 mEq tablet extended release 20 meq PO DAILY Qty: 7 0RF nystatin 100,000 unit/mL suspension 500,000 unit PO TID Qty: 473 0RF Rx Instructions: administer 1/2 of dose in each side of the mouth Continued (DME) Wheeled walker Qty: 1 0RF Rx Instructions: As directed acetaminophen 325 mg capsule 650 mg PO Q6H PRN (Reason: fever or pain) Qty: 180 3RF amitriptyline 25 mg tablet 50 mg PO HS Qty: 180 3RF Rx Instructions: for chronic neck pain and sleep aspirin 81 mg tablet,delayed release (DR/EC) 81 mg PO DAILY Qty: 90 3RF escitalopram oxalate 20 mg tablet 20 mg PO DAILY Qty: 90 3RF gabapentin 600 mg tablet 600 mg PO TID 90 Days Qty: 270 3RF lisinopril 10 mg tablet 10 mg PO DAILY Qty: 90 3RF Rx Instructions: For blood pressure control omeprazole 40 mg capsule,delayed release(DR/EC) 40 mg PO DAILY Qty: 90 3RF rosuvastatin [Crestor] 20 mg tablet 20 mg PO DAILY Qty: 90 3RF meloxicam 15 mg tablet 15 mg PO DAILY Qty: 90 3RF Bio-K plus 50 billion cell capsule,delayed release(DR/EC) 1 cap PO DAILY Qty: 30 0RF Discontinued amoxicillin-pot clavulanate 875-125 mg tablet 1 tab PO BID 10 Days Qty: 20 0RF Discharge Instructions Instructions: Dehydration (ED), Oral Candidiasis (ED) Additional Instructions: Please use oral mouthwash provided 3-4 times daily if needed for pain more you have also be prescribed nystatin oral solution from the pharmacy Push fluids drinking 6 to 8 glasses of water and fluids daily to stay well-hydrated Your potassium was noted to be low at 2.9 you will be given potassium supplementation for 1 week and should follow-up with your primary care provider for recheck Referrals: Carlos Nguyen DO [Primary Care Provider] - Medical Decision Making This is a unkempt frail male presents with ongoing severe oral thrush now appearing dehydrated. Orthostatic vital signs are positive. He received 2 L of lactated Ringer's with resolution of his orthostasis reporting he feels much improved. Routine labs to include CBC and CBC. Notable for potassium of 2.9 he received 40 mEq orally. UA with no evidence of urinary tract infection is specific gravity 1.015. I do feel he should continue oral treatment for his thrush will prescribe Magic mouthwash. Will also continue to replete his magnesium. He denies any diarrhea or at this time but did say a couple days ago he had some episodes when he was on the antibiotics.. Magnesium has been added on and within normal limits at 1.9. His vital signs have normalized and he reports he feels stable for discharge to home. He is able to tolerate p.o. Medical Records Medical records reviewed: Yes I reviewed the patient's medical records. Lab Data Lab results reviewed: Yes I reviewed the patient's lab results. Lab results narrative: Laboratory Results - last 24 hr 08/21/23 08/21/23 18:44 19:04 WBC 11.76 H RBC 4.58 Hgb 14.0 Hct 40.7 MCV 89 MCH 30.6 MCHC 34.4 RDW 13.5 Plt Count 112 L MPV 12.4 H Immature Gran % 0.4 Neutrophils % 77.0 Lymphocytes % 14.3 Monocytes % 6.5 Eosinophils % 1.2 Basophils % 0.6 Nucleated RBC % 0.0 Absolute Neutrophils 9.06 H Absolute Lymphocytes 1.68 Absolute Monocytes 0.76 Absolute Eosinophils 0.14 Absolute Basophils 0.07 Sodium 141 Potassium 2.9 L* Chloride 106 Carbon Dioxide 28.3 Anion Gap 6.7 BUN 11 Creatinine 1.3 Est GFR (CKD-EPI 2020) 59.84 Glucose 100 Calcium 8.7 Magnesium 1.9 Procalcitonin < 0.1 Urine Color Yellow Urine Clarity Clear Urine pH 6.0 Ur Specific [place] 1.015 Urine Protein 30 H Urine Ketones Negative Urine Blood Moderate H Urine Nitrite Negative Urine Bilirubin Negative Urine Urobilinogen 0.2 Ur Leukocyte Esterase Negative Urine RBC 5-10 H Urine WBC 0-2 Ur Epithelial Cells Rare Urine Crystals Mod Calcium Oxalate Urine Bacteria Negative Urine Casts 0-2 Hyaline Urine Mucus Moderate Urine Other Rare Renal Ur Culture Indicated? No Urine Glucose Negative HPI General Mode of arrival: EMS. Date/Time Provider Initiated Documentation: 08/21/23 16:48. Limitations to Documentation: no limitations. Information obtained by: patient. HPI Narrative: Patient presents for evaluation of ongoing discomfort in his mouth especially tongue. He has had decreased oral intake secondary to the symptoms. Denies any fever chills chest pain or shortness of breath. States he has had some white headedness but no syncopal episode. Related Data Home Medications Medication Instructions Recorded Confirmed Wheeled walker #1 ea 04/18/19 08/12/23 L. acidophilus,casei,rhamnosus 50 1 cap PO DAILY #30 caps 11/04/21 08/12/23 billion cell capsule,delayed release (Bio-K plus) acetaminophen 325 mg capsule 650 mg (2 x 325 mg) PO Q6H PRN 10/26/22 08/12/23 fever or pain #180 caps amitriptyline 25 mg tablet 50 mg (2 x 25 mg) PO HS #180 tabs 10/26/22 08/12/23 aspirin 81 mg tablet,delayed 81 mg PO DAILY #90 tab-caps 10/26/22 08/12/23 release escitalopram oxalate 20 mg tablet 20 mg PO DAILY #90 tabs 10/26/22 08/12/23 gabapentin 600 mg tablet 600 mg PO TID 90 days #270 tab-caps 10/26/22 08/12/23 lisinopril 10 mg tablet 10 mg PO DAILY #90 tabs 10/26/22 08/12/23 omeprazole 40 mg capsule,delayed 40 mg PO DAILY #90 caps 10/26/22 08/12/23 release rosuvastatin 20 mg tablet (Crestor) 20 mg PO DAILY #90 tabs 10/26/22 08/12/23 meloxicam 15 mg tablet 15 mg PO DAILY #90 tabs 11/13/22 08/12/23 nystatin 100,000 unit/mL oral 500,000 unit (5 mL) PO TID #473 mL 08/21/23 suspension potassium chloride 20 mEq 20 meq PO DAILY #7 tabs 08/21/23 tablet,extended release Previous Rx's Medication Instructions Recorded Wheeled walker #1 ea 04/18/19 L. acidophilus,casei,rhamnosus 50 1 cap PO DAILY #30 caps 11/04/21 billion cell capsule,delayed release (Bio-K plus) acetaminophen 325 mg capsule 650 mg (2 x 325 mg) PO Q6H PRN 10/26/22 fever or pain #180 caps amitriptyline 25 mg tablet 50 mg (2 x 25 mg) PO HS #180 tabs 10/26/22 aspirin 81 mg tablet,delayed 81 mg PO DAILY #90 tab-caps 10/26/22 release escitalopram oxalate 20 mg tablet 20 mg PO DAILY #90 tabs 10/26/22 gabapentin 600 mg tablet 600 mg PO TID 90 days #270 tab-caps 10/26/22 lisinopril 10 mg tablet 10 mg PO DAILY #90 tabs 10/26/22 omeprazole 40 mg capsule,delayed 40 mg PO DAILY #90 caps 10/26/22 release rosuvastatin 20 mg tablet (Crestor) 20 mg PO DAILY #90 tabs 10/26/22 meloxicam 15 mg tablet 15 mg PO DAILY #90 tabs 11/13/22 nystatin 100,000 unit/mL oral 500,000 unit (5 mL) PO TID #473 mL 08/21/23 suspension potassium chloride 20 mEq 20 meq PO DAILY #7 tabs 08/21/23 tablet,extended release Allergies Allergy/AdvReac Type Severity Reaction Status Date / Time tetanus and diphtheria AdvReac Intermediate severe Verified 08/12/23 11:56 toxoids muscle pain x 2 weeks after injection on 09/2012 General Stated Complaint: DentalOral SORAYA: 3 Review of Systems All systems reviewed & are unremarkable except as noted in HPI and below PFSH All Active Problems (Updated 08/21/23 @ 20:17 by Shaista Noble NP) Oral thrush (Acute) Acute dehydration (Acute) Disease of gingiva due to infection (Acute) Osteoarthritis of right foot (Acute) Nail dystrophy (Acute) Toe pain, left (Acute) Toe pain, right (Acute) Sciatica (Acute) Onychogryphosis (Acute) Learning disability (Acute) 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 AAA (abdominal aortic aneurysm) (Acute) Depressive disorder (Chronic 09/23/05) DEPRESSION 2005 Ambulatory dysfunction (Acute) Chronic pain (Chronic) hip, left Emphysema lung (Acute) Pulmonary nodule (Chronic) Tobacco use disorder, moderate, dependence (Chronic 09/23/05) CHRONIC SMOKER <2006; 1 PPD Spinal stenosis in cervical region (Chronic 01/01/90) NECK PAIN, 01/1990 DR COBURN C-6 INTO L ARM; neurontin for neuropathic pain 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 Generalized anxiety disorder (Acute 01/02/12) fluoxetine since at least 2005 Gastroesophageal reflux disease (Acute 04/10/17) Medical History Chronic left hip pain Essential hypertension Surgical History History of knee surgery Family History Mother , stroke at age 70. Diabetes Essential hypertension Stroke Father , surgical complicatio at age 56. No problems noted. Sister No problems noted. Sister No problems noted. Brother No problems noted. Brother No problems noted. Brother , Blood disease at age 64. No problems noted. Brother Essential hypertension Brother No problems noted. Social History Smoking/Tobacco Use Status: Current every day Tobacco Type: cigarettes Smoking risk assessment performed?: Yes Alcohol Intake: former Drug use: Never Substance use type: does not use Adopted: No Foster care: No Housing: apartment Number of Children: 1 current occupation: [employer] What type of physical activity do you participate in: walking Do you feel safe at home: Yes Do you feel safe in your relationship?: Yes Additional Social history: Patient is , with one daughter. He is a grandfather of 4. He has a 50 approximate pack-year history of smoking, but denies alcohol use. Exam Narrative Exam Narrative: Frail disheveled male patient chronically ill-appearing much older than stated age unkempt Dry oral mucosa with oral exudates coat on tongue yellowish-brown. Skin is dry with various areas of small scabs most consistent with bed bug infestation Respirations are even and unlabored Cardiovascular regular rate and rhythm Moves all extremities with no edema to his lower extremities Neuro he is awake alert oriented no focal deficits Psychiatric normal mood and affect Course Vital Signs Vital signs: Vital Signs Temperature 36.5 C 08/21/23 16:29 Pulse 82 08/21/23 16:29 Respiratory Rate 20 08/21/23 16:29 Blood Pressure 123/78 08/21/23 16:29 Pulse Oximetry 99 08/21/23 16:29 Temperature 36.5 C 08/21/23 16:29 Temperature Source Oral 08/21/23 16:29 Pulse 90 08/21/23 20:03 Pulse 101 H 08/21/23 17:01 Respiratory Rate 18 08/21/23 18:14 Respiratory Effort Normal, Non-Labored 08/21/23 16:40 Blood Pressure 113/75 08/21/23 20:03 Blood Pressure Mean 92 08/21/23 19:46 Blood Pressure Position Sitting 08/21/23 18:14 Pulse Oximetry 98 08/21/23 19:50 Oxygen Delivery Method Room Air 08/21/23 18:14 Oxygen Flow Rate 0 08/21/23 18:14 Pain Level 10 08/21/23 18:14 Lab/Test Results Lab/Test Results: Laboratory Tests Range/Units 08/21/23 08/21/23 18:44 19:04 WBC (4.4-10.8) 10^3/uL 11.76 H RBC (4.36-5.78) 10^6/uL 4.58 Hgb (13.5-17.5) g/dL 14.0 Hct (40.0-50.0) % 40.7 MCV (80-95) fL 89 MCH (27.0-33.0) pg 30.6 MCHC (32.0-36.0) % 34.4 RDW (11.8-14.1) % 13.5 Plt Count (130-400) 10^3/uL 112 L MPV (8.0-11.0) fL 12.4 H Immature Gran % 0.4 Neutrophils % 77.0 Lymphocytes % 14.3 Monocytes % 6.5 Eosinophils % 1.2 Basophils % 0.6 Nucleated RBC % (0.0-0.3) % 0.0 Absolute Neutrophils (1.2-6.7) 10^3/uL 9.06 H Absolute Lymphocytes (1.2-3.4) 10^3/uL 1.68 Absolute Monocytes (0.1-0.8) 10^3/uL 0.76 Absolute Eosinophils (0.0-0.7) 10^3/uL 0.14 Absolute Basophils (0.0-0.2) 10^3/uL 0.07 Sodium (136-145) mmol/L 141 Potassium (3.5-5.1) mmol/L 2.9 L* Chloride (98-107) mmol/L 106 Carbon Dioxide (21.0-32.0) mmol/L 28.3 Anion Gap (3-11) mmol/L 6.7 BUN (7-18) mg/dL 11 Creatinine (0.70-1.30) mg/dL 1.3 Est GFR (CKD-EPI 2020) (mL/min/1.73m2) 59.84 Glucose (74-106) mg/dL 100 Calcium (8.5-10.1) mg/dL 8.7 Magnesium (1.8-2.4) mg/dL 1.9 Procalcitonin ng/mL < 0.1 Urine Color (Yellow) Yellow Urine Clarity (Clear) Clear Urine pH (5-8) 6.0 Ur Specific [place] (1.005-1.025) 1.015 Urine Protein (Negative) mg/dL 30 H Urine Ketones (Negative) mg/dL Negative Urine Blood (Negative) Moderate H Urine Nitrite (Negative) Negative Urine Bilirubin (Negative) Negative Urine Urobilinogen (Up to 0.2) mg/dL 0.2 Ur Leukocyte Esterase (Negative) Negative Urine RBC (0-2) HPF 5-10 H Urine WBC (0-5) HPF 0-2 Ur Epithelial Cells (Negative) HPF Rare Urine Crystals (Negative) HPF Mod Calcium Oxalate Urine Bacteria (Negative) HPF Negative Urine Casts (Negative) LPF 0-2 Hyaline Urine Mucus (Negative) Moderate Urine Other (Negative) Rare Renal Ur Culture Indicated? No Urine Glucose (Negative) mg/dL Negative
[2023-08-21] MEDS: Magic Mouthwash 119 ML BTL 10 ML PO (20:43)
== END 2023-08-21 20:41 | disposition home or self-care (01) ==
PROVIDERS: Emergency Provider Nurse Practitioner Acute Care; PCP Family Medicine
DX: E86.0 Dehydration (principal); B37.0 Candidal stomatitis; R94.31 Abnormal electrocardiogram [ECG] [EKG]; I10 Essential (primary) hypertension; F17.210 Nicotine dependence, cigarettes, uncomplicated; Z79.82 Long term (current) use of aspirin
CPT/HCPCS: 80048; 84145; 93005; 96360; 96361; 99283; 81003; 81015; 83735; 85025; 93010